=== PATIENT | female | born 1955 | race Caucasian/White ===

== ENCOUNTER 2019-08-03 10:00 | Outpatient (RCR) | payer BC, SELFPAY ==
[2019-06-26 10:39] VITALS: BP_SYST 120
--- NOTE | 2019-06-26 11:52 | OTOPEVAL ---
OCCUPATIONAL THERAPY INITIAL EVALUATION REPORT Thank you for referring this patient to [facility]. Skilled OT inidcated 2x/week for 6 weeks. Please review, sign, date and return this plan of care KATT. I agree with and certify that the following plan of care is medically necessary. Referring Physician Date Attending Provider: Marcela Pugh, *OT Outpatient Evaluation Start: 06/26/19 10:39 Freq: Status: Active Protocol: Document 06/26/19 10:39 YULIANA (Rec: 06/26/19 11:52 YULIANA [id number]) Therapy Assessment Status Assessment Status Assessment Status Evaluation Outpatient Past Medical History Neurological History Hx Multiple Sclerosis Yes Hx Other Neurological Disorders Yes: neurogenic bowel Genitourinary History Hx Kidney Stones Yes Evaluation Information Problem Diagnosis MS, (R) UE contracture Additional Evaluation Detail Patient had botox injections 06/14/19 to the (R) upper back and neck, biceps, and forearm. Subjective Information Patient reports her goal for Query Text:As Reported By Patient/ therapy is for pain reduction Family and increased flexibility in the (R) UE. Pain Assessment Timing of Pain Assessment Timing of Pain Assessment Assessment Pain Scale Pain Scale Used Numeric (1 - 10) Self Report Pain Assessment Right Arm(s) Reported Pain Level 3 Pain Description Aching,Tightness Pain Frequency Intermittent Current Pain Intensity 3 Lowest Pain Intensity 0 Greatest Pain Intensity 8 Pain Score Pain Score 3: Self Report Cervical and Lumbar ROM Cervical ROM Cervical Rotation Right (0-90) 40 Query Text:Active in Degrees Cervical Rotation Left (0-90) 50 Query Text:Active in Degrees Upper Extremity Range of Motion Scapular/ Shoulder Range of Motion Right Shoulder Flexion - Active 0 Shoulder Flexion - Passive 140 Shoulder Extension - Active 20 Shoulder Extension - Passive 40 Shoulder Abduction - Active 50 Shoulder Abduction - Passive 120 Elbow/Forearm Range of Motion Right Elbow Flexion - Active 138 Elbow Flexion - Passive 140 Elbow Extension - Active -100 Elbow Extension - Passive -30 Forearm Supination - Active 0 Forearm Supination - Passive 90 Forearm Pronation - Active 70 Forearm Pronation - Passive 90 Wrist Range of Motion Right Wrist Flexion - Active 10 Wrist Flexion - Passive 65 Wrist Extension - Active 45 Wrist Extension - Passive 75 U
[2019-08-03 11:24] VITALS: BP_SYST 120
--- NOTE | 2019-08-03 11:35 | OTOPEVAL ---
OCCUPATIONAL THERAPY DISCHARGE REPORT 08/03/2019 Thank you for referring this patient to [facility]. As described below, no further skilled OT is indicated at this time. She is independent with her home program and splinting. Please review, sign, date and return this discharge report KATT. I agree with and certify that the following plan of care is medically necessary. Referring Physician Date Attending Provider: Marcela Pugh, MD *OT Outpatient Re-Evaluation Evaluation Information Diagnosis MS Additional Evaluation Detail Lola has been participating in outpatient OT for RUE weakness and pain. OT has been focusing on manual therapy, splinting, and e-stim to help reduce contracture and tone and help promote improved flexibility. She has been wearing an elbow extension orthotic to reduce flexion tone. Subjective Information Lola reports not feeling Query Text:As Reported By Patient/ very much change with AROM SOC Family . She does note that therapy has helped relax her arm and has helped with the flexibility. Pain Assessment Timing of Pain Assessment Timing of Pain Assessment Re-assessment Pain Scale Pain Scale Used Numeric (1 - 10) Self Report Pain Assessment Right Arm(s) Reported Pain Level 0 Radicular Pain Location (R) neck and arm Current Pain Intensity 0 Lowest Pain Intensity 0 Greatest Pain Intensity 4 Pain Score Pain Score 0: Self Report Additional Pain Score Comments Pain with attempts to raise arm. Pt is over using upper traps 2/2 distal weakness. Cervical and Lumbar ROM Cervical ROM Cervical Rotation Right (0-90) 50 Query Text:Active in Degrees Cervical Rotation Left (0-90) 50 Query Text:Active in Degrees Cervical ROM Comments Rotation to the right improved from 40* to 50*. Upper Extremity Range of Motion Scapular/ Shoulder Range of Motion Right Shoulder Flexion - Active 0 Shoulder Flexion - Passive 140 Shoulder Extension - Active 20 Shoulder Extension - Passive 40 Shoulder Abduction - Active 50 Shoulder Abduction - Passive 120 Elbow/Forearm Range of Motion Right Elbow Flexion - Active 138 Elbow Flexion - Passive 140 Elbow Extension - Active -80 Elbow Extension - Passive -30 Forearm Supination - Active 0 Fo
== END 2019-08-04 14:24 | disposition home or self-care (01) ==
LOC: ANHOT 10:00
PROVIDERS: PCP Family Medicine Adolescent Medicine; Visit Provider Physical Medicine & Rehabilitation
DX: G35 Multiple sclerosis (principal); G24.3 Spasmodic torticollis; N31.9 Neuromuscular dysfunction of bladder, unspecified; K59.2 Neurogenic bowel, not elsewhere classified; M79.2 Neuralgia and neuritis, unspecified; Z99.3 Dependence on wheelchair; Z68.29 Body mass index [BMI] 29.0-29.9, adult
CPT/HCPCS: 97014; 97110; 97140; 97165; 97760; G0283

== ENCOUNTER → 2019-09-05 14:56 | Outpatient (CLI) | payer BC, SELFPAY ==
--- NOTE | ~2019-09-05 | MM_ITS ---
EXAMINATION: MM screening марина BI w raphael HISTORY: Screening mammogram TECHNIQUE: Craniocaudal and mediolateral oblique 3-D tomosynthesis images were obtained and synthetic 2-D images were generated. CAD analysis was submitted and interpreted. COMPARISON: 09/08/2018 diagnostic left digital mammogram and limited left breast ultrasound To bilateral digital screening mammogram diagnostic right digital mammogram and limited right breast ultrasound 07/23/2017, 07/21/2016, 07/19/2015 bilateral digital screening mammogram examinations BREAST PARENCHYMAL COMPOSITION: There are scattered areas of fibroglandular density. FINDINGS: There are scattered bilateral benign calcifications. There is no evidence of suspicious mas s, calcification, or architectural distortion to suggest malignancy in either breast. There has been no suspicious interval change. IMPRESSION: 1. No mammographic evidence of malignancy. 2. Recommend routine screening mammography in one year. BI-RADS Category 2: Benign finding(s). Reviewed, dictated and finalized at location A. E THINNER
== END ==
PROVIDERS: PCP Family Medicine Adolescent Medicine; Visit Provider Nurse Practitioner
DX: Z12.31 Encounter for screening mammogram for malignant neoplasm of breast (principal)
CPT/HCPCS: 77063; 77067

== ENCOUNTER 2020-02-05 11:00 | Outpatient (RCR) | payer BC, SELFPAY ==
[2020-01-18 13:53] VITALS: BP_SYST 105
--- NOTE | 2020-01-18 15:09 | PTOPEVAL ---
Thank you for referring Lola Taylor to [facility]. Please review, sign, date and return this plan of care KATT. Pt referred to therapy to address impairments related to multiple sclerosis. She presents with right UE impairments with range and strength. She would benefit from additional skilled PT 2-3x/wk x 4-6 wk. I agree with and certify that the following plan of care is medically necessary. Referring Physician Date Attending Provider: Marcela Pugh, *PT Outpatient Evaluation Start: 01/18/20 13:51 Freq: Status: Active Protocol: Document 01/18/20 13:53 BENJAMIN (Rec: 01/18/20 14:35 BENJAMIN [id number]) Therapy Assessment Status Assessment Status Assessment Status Evaluation Outpatient Past Medical History Past Medical History Source of Past Medical History Patient Neurological History Hx Multiple Sclerosis Yes Hx Other Neurological Disorders Yes: neurogenic bowel, neuropathic pain Genitourinary History Hx Kidney Stones Yes Psychosocial History Hx Depression Yes Evaluation Information Problem Diagnosis MS Onset 1989 Additional Evaluation Detail [facility]: new permobile 06/22. Transport van to allow community mobility Subjective Information Pt received botox in her range Query Text:As Reported By Patient/ UE and neck region ~ 1year Family ago due to increased spasm. She was made a splint to assist with maintaining her left extension. She recently received injection into the left arm again. She is hoping to address her right arm range. She is not performing a HEP. She wears the splint every other day for a few hours. Prior Level of Function Home Setting Home Type House Support Available Local Family Support,Physical Assist Available Mobility Assistive Devices (Used Last 3 Wheelchair, Motorized Months) Bathroom Environment Shower, Curtain Toileting Equipment Grab Bars Comments Additional Prior Level of Function Pt's performs all the Comments bed mobility, transfers, and ADL's/ IADL's. She is indep with mobility from her [employer]er. Pain Assessment Timing of Pain Assessment Timing of Pain Assessment Assessment Pain Scale Pain Scale Used
--- NOTE | 2020-02-05 14:10 | PCPTNOTE ---
Admitting Provider: Attending Provider: Marcela Pugh, Patient:Lola Taylor Date of :1955 Discharge Note Patient has received 6 therapy visits from 01/17-02/05/20 to address education on pressure relief, seated position and joint range of UE's. She reported improved buttock pain after cushion properly inflated. Inconsistent with performing proper pressure relief technique or frequency of pressure relief. Her caregiver is independent with performing a stretching HEP. The goals have been partially met. Thank you for referring this patient to [facility]. Please review, sign, date and return this discharge summary KATT. I have been updated about the patient's current status and I agree with discharge from the above service at this time. Referring Physician Date
== END 2020-02-05 15:04 | disposition home or self-care (01) ==
LOC: ANHPT 11:00
PROVIDERS: PCP Family Medicine Adolescent Medicine; Visit Provider Physical Medicine & Rehabilitation
DX: G35 Multiple sclerosis (principal); G24.3 Spasmodic torticollis; N31.9 Neuromuscular dysfunction of bladder, unspecified; K59.2 Neurogenic bowel, not elsewhere classified; M79.2 Neuralgia and neuritis, unspecified; F32.9 Major depressive disorder, single episode, unspecified; Z99.3 Dependence on wheelchair; Z86.39 Personal history of other endocrine, nutritional and metabolic disease; Z86.79 Personal history of other diseases of the circulatory system
CPT/HCPCS: 97110; 97140; 97162; 97530

== ENCOUNTER 2020-06-25 09:17 | Outpatient (CLI) | payer BC, SELFPAY ==
--- NOTE | ~2020-06-25 | XR_ITS ---
EXAMINATION: XR abdomen/kub 1V INDICATION: Nephrolithiasis TECHNIQUE: Supine views of the abdomen were obtained on 2 radiographs. COMPARISON: 06/06/[address], 06/15/2019 FINDINGS: Bowel contents project over the kidneys limiting sensitivity for renal stones. No definite urolithiasis is identified. There are numerous phleboliths of the pelvis. Punctate densities in the r ight mid abdomen likely within the bowel. A large volume of colonic stool is present. There is modera te osteoarthritis of the hips. Lucent centered soft tissue calcifications projecting in the left hip region likely reflect prior trauma or injection sites. There is severe lower lumbar spondylosis. IMPRESSION: 1. No urolithiasis identified. Reviewed, dictated and finalized at location A. 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
== END 2020-06-25 09:18 | disposition home or self-care (01) ==
LOC: ANHIMG 09:22
PROVIDERS: PCP Family Medicine Adolescent Medicine; Visit Provider Urology
DX: Z87.442 Personal history of urinary calculi (principal)
CPT/HCPCS: 74018

== ENCOUNTER → 2020-11-05 10:55 | Outpatient (CLI) | payer BC, SELFPAY ==
--- NOTE | ~2020-11-05 | MM_ITS ---
EXAMINATION: MM screening марина BI w raphael HISTORY: Screening TECHNIQUE: Craniocaudal and mediolateral oblique 3-D tomosynthesis images were obtained and synthetic 2-D images were generated. CAD analysis was submitted and interpreted. COMPARISON: Comparison to multiple prior studies sequentially, with oldest reviewed study dated 07/21. BREAST PARENCHYMAL COMPOSITION: There are scattered areas of fibroglandular density. FINDINGS: There is no evidence of suspicious mass, calcification, or architectural distortion to sugg est malignancy in either breast. There has been no suspicious interval change. IMPRESSION: 1. No mammographic evidence of malignancy. 2. Recommend routine screening mammography in one year. BI-RADS Category 1: Negative Reviewed, dictated and finalized at location A.
== END ==
PROVIDERS: PCP Family Medicine Adolescent Medicine; Visit Provider Nurse Practitioner
DX: Z12.31 Encounter for screening mammogram for malignant neoplasm of breast (principal)
CPT/HCPCS: 77063; 77067

== ENCOUNTER 2021-02-20 09:00 | Outpatient (RCR) | payer BC, SELFPAY ==
[2021-01-21 09:37] VITALS: BP_SYST 110
--- NOTE | 2021-01-21 10:57 | OTOPEVAL ---
OCCUPATIONAL THERAPY INITIAL EVALUATION: 01/21/2021 Thank you for referring Lola Taylor to [facility].? The patient is scheduled to be seen for therapy? 1x/week for 4 weeks. Please review, sign, date and return this plan of care KATT. I agree with and certify that the following plan of care is medically necessary. Referring Physician Date Attending Provider: Marcela Pugh, *OT Outpatient Evaluation Start: 01/21/21 09:04 Freq: Status: Active Protocol: Document 01/21/21 09:37 KJL (Rec: 01/21/21 10:57 KJL [email or web address]) Therapy Assessment Status Assessment Status Assessment Status Evaluation Outpatient Past Medical History Neurological History Hx Multiple Sclerosis Yes Hx Other Neurological Disorders Yes: neurogenic bowel, neuropathic pain Genitourinary History Hx Kidney Stones Yes Psychosocial History Hx Depression Yes Evaluation Information Problem Diagnosis MS Onset 1989 Additional Evaluation Detail Patient diagnosed in 1989 with multiple sclerosis. Patient is w/c bound for the past 12 years. Patient reports has been to Occupational Therapy here about a year ago for addressing R UE stretching, strengthening, splinting. Patient receives botox injections in R UE arm every three months for the past three years. Subjective Information Patient reports R UE has Query Text:As Reported By Patient/ progressively become more Family painful from shoulder to elbow over the past month,. Patient reports last botox injections on 01/10/2021, patient reports this has assisted the pain. Patient reports since coming to therapy a year ago does not complete stretches, still wearing elbow splint 2-3x/week for as tolerated usually about 4 hours. Patient tries to remember to wear it when sleeping. Patient reports dominant L UE is progressively becoming weaker. Patients goal with therapy is to be educated on stretches, ROM for
[2021-02-20 08:57] VITALS: BP_SYST 135
--- NOTE | 2021-02-20 09:49 | OTOPEVAL ---
OCCUPATIONAL THERAPY RE-EVALUATION/DISCHARGE SUMMARY: 02/20/2021 Thank you for referring Lola Taylor to [facility].? As noted below, no further skilled OT is indicated at this time. Plan to discharge today with patient and patient independent with HEP materials Please review, sign, date and return this plan of care KATT. I agree with and certify that the following plan of care is medically necessary. Referring Physician Date Attending Provider: Marcela Pugh, *OT Outpatient Re-evaluation/Discharge Summary Start: 01/21/21 09:04 Freq: Status: Active Protocol: Document 02/20/21 08:57 KJL (Rec: 02/20/21 09:49 KJL [email or web address]) Therapy Assessment Status Assessment Status Assessment Status Re-evaluation/Discharge Summary Evaluation Information Problem Diagnosis MS Onset 1989 Additional Evaluation Detail Patient diagnosed in 1989 with multiple sclerosis. Patient is w/c bound for the past 12 years. Patient reports has been to Occupational Therapy here about a year ago for addressing R UE stretching, strengthening, splinting. Patient receives botox injections in R UE arm every three months for the past three years. Subjective Information Patient has attended Query Text:As Reported By Patient/ Outpatient OT for the past 4 Family weeks and is independent with splint wearing including doffing/donning with spouse assistance. Patient is independent with HEP materials and reports R UE has decreased pain, more flexibility since initial evaluation on 01/21/2021 Pain Assessment Timing of Pain Assessment Timing of Pain Assessment Assessment Pain Scale Pain Scale Used Numeric (1 - 10) Self Report Pain Assessment Right Arm(s) Reported Pain Level 0 Lowest Pain Intensity 0 Greatest Pain Intensity 8 Pain Score Pain Score 0: Self Report Interventions Used Interventions Used By Clinicians Rest Upper Extremity Range of Motion General Upper Extremity Range of Motion Reason Not Measured WNL/Left Scapular/ Shoulder Range of Motion Right Reason Not Measured WNL/Left Shoulder Flexion - Active 0 Shoulder Flexion - Passive 140 Shoulder Extension - Active 30
== END 2021-02-20 16:25 | disposition home or self-care (01) ==
LOC: ANHOT 09:00
PROVIDERS: PCP Family Medicine Adolescent Medicine; Visit Provider Physical Medicine & Rehabilitation
DX: G35 Multiple sclerosis (principal); Z68.28 Body mass index [BMI] 28.0-28.9, adult
CPT/HCPCS: 97110; 97140; 97165; 97168; 97763

== ENCOUNTER 2021-06-10 13:29 | Outpatient (CLI) | payer MEDICARE, BC, SELFPAY ==
--- NOTE | ~2021-06-10 | XR_ITS ---
EXAMINATION: XR abdomen/kub 1V EXAM DATE: 06/10/2021 14:01 INDICATION: Bilateral kidney stones. TECHNIQUE: Frontal projection of the upper abdomen, frontal projection lower abdomen/pelvis for inter pretation. Comparison is made to prior examination from 06/25/2020. FINDINGS: Moderate to large amount of colonic stool and gas, similar appearance on previous examinat ion. This is obscuring renal contours, can't confidently evaluate for kidney stones. Extensive pelvic calcifications appear unchanged consistent with phleboliths. Moderate bilateral hip primary osteoart hritis. There is no organomegaly. IMPRESSION: Moderate to large amount of colonic stool and gas obscuring renal contours. Reviewed, dictated and finalized at location G. [employer]
== END 2021-06-10 13:30 | disposition home or self-care (01) ==
PROVIDERS: PCP Family Medicine Adolescent Medicine; Visit Provider Urology
DX: N20.0 Calculus of kidney (principal)
CPT/HCPCS: 74018

== ENCOUNTER → 2021-11-14 12:38 | Outpatient (CLI) | payer MEDICARE, BC, SELFPAY ==
--- NOTE | ~2021-11-14 | MM_ITS ---
EXAMINATION: MM screening марина BI w raphael HISTORY: Screening TECHNIQUE: Craniocaudal and mediolateral oblique 3-D tomosynthesis images were obtained and synthetic 2-D images were generated. CAD analysis was submitted and interpreted. COMPARISON: Comparison to multiple prior studies sequentially, with oldest reviewed study dated 07/23. BREAST PARENCHYMAL COMPOSITION: Breast composed of scattered areas of fibroglandular density FINDINGS: Stable lymph node in the right axilla. There is no evidence of suspicious mass, calcificati on, or architectural distortion to suggest malignancy in either breast. There has been no suspicious interval change. IMPRESSION: 1. No mammographic evidence of malignancy. 2. Recommend routine screening mammography in one year. BI-RADS Category 2: Benign finding(s). Reviewed, dictated and finalized at location A.
== END ==
PROVIDERS: PCP Nurse Practitioner; Visit Provider Nurse Practitioner
DX: Z12.31 Encounter for screening mammogram for malignant neoplasm of breast (principal)
CPT/HCPCS: 77063; 77067

== ENCOUNTER 2021-12-11 08:56 | Inpatient (IN) | payer MEDICARE, BC, SELFPAY ==
[2021-12-11] VITALS (34 sets, daily range): BP systolic 98–152; BP diastolic 47–89; PULSE 84–123; RESP 14–30; TEMP 36.8–38.7; O2SAT 90–97; BMI 27.3
--- NOTE | ~2021-12-11 | XR_ITS ---
XR chest 1V portable 12/11/2021 10:27 Indication: Shortness of breath Procedure: AP portable chest Comparison: 02/14/2017 Findings: Heart size normal. Shallow inspiration. No focal air space disease, pulmonary edema, pleura l effusion or suspected pneumothorax. No acute osseous abnormality. Impression: 1: No acute cardiopulmonary disease. Reviewed, dictated and finalized at location B. Impression: 1: No acute cardiopulmonary disease.
--- NOTE | ~2021-12-11 | US_ITS ---
EXAMINATION: US venous doppler [facility] DATE: 12/12/2021 08:52 INDICATION: Lower limb edema. TECHNIQUE: Grayscale ultrasound images without and with compression and Doppler ultrasound images of the bilateral lower extremity veins were obtained. COMPARISON: Ultrasound 02/15/2017 FINDINGS: The visualized portions of right common femoral vein, profunda (deep) femoral vein, femoral vein, pop liteal vein, peroneal veins, posterior tibial veins, and greater saphenous vein outflow are patent. The visualized portions of left common femoral vein, profunda femoral vein, femoral vein, popliteal v ein, peroneal veins, posterior tibial veins, and greater saphenous vein outflow are patent. IMPRESSION: 1. No deep venous thrombosis. Reviewed, dictated and finalized at location A.
--- NOTE | 2021-12-11 09:14 | ECG_ITS ---
Measurements Intervals [place] Rate: 111 P: 45 [place]: 142 QRS: 40 QRSD: 92 T: 42 QT: 324 QTc: 440 Interpretive Statements SINUS TACHYCARDIA POSSIBLE LEFT ATRIAL ENLARGEMENT [-0.1mV P WAVE IN V1/V2] MINOR NONSPECIFIC ST CHANGE NO PREVIOUS ECG AVAILABLE FOR COMPARISON Electronically Signed On 12-11-2021 20:33:46 CDT by Karie Rhodes M.D.
--- NOTE | 2021-12-11 09:39 | ED.FEVER ---
HPI - Fever General Chief Complaint: Fever Stated Complaint: COVID+ on 12/09 Time Seen by Provider: 12/11/21 09:24 Source: patient Mode of arrival: ambulatory Limitations: no limitations History of Present Illness HPI Narrative: 66 year old female with history of MS presents today with complaints of sob and cough. Patient tested positive for covid on wednesday. Patient originally vaccinated last year against COVID has not gotten a booster. States her symptoms started Wednesday with a sore throat. Patient since then has had increase in cough and sob. Fever this am 101 but did not treat her symptoms. Patient lives at home with her . She is wheel chair bound. Her recently had covid and so did her daughter. Related Data Home Medications Medication Instructions Recorded Confirmed cholecalciferol (vitamin D3) 25 25 mcg PO DAILY 09/24/21 12/11/21 mcg (1,000 unit) capsule dalfampridine 10 mg 10 mg PO Q12H 09/24/21 12/11/21 tablet,extended release,12 hr gabapentin 100 mg capsule 200 mg PO QHS 09/24/21 12/11/21 ketoconazole 2 % shampoo 1 applic topical 3XW 09/24/21 multivitamin (Multiple Vitamins 1 tablet PO DAILY 09/24/21 12/11/21 tablet) oxybutynin chloride 10 mg 20 mg PO DAILY 09/24/21 12/11/21 tablet,extended release 24 hr pravastatin 20 mg tablet 20 mg PO DAILY 09/24/21 12/11/21 tizanidine 4 mg capsule 8 mg PO QHS PRN Muscle Spasm 09/24/21 12/11/21 venlafaxine 150 mg 150 mg PO DAILY 09/24/21 12/11/21 capsule,extended release 24 hr Allergies Allergy/AdvReac Type Severity Reaction Status Date / Time codeine Allergy Mild Nausea and Verified 09/24/21 08:20 Vomiting Sulfa (Sulfonamide Allergy Mild Nausea and Verified 09/24/21 08:20 Antibiotics) Vomiting Review of Systems Review of Systems: CONSTITUTIONAL: Denies fever, chills, or sweats. EYES: Denies visual changes, redness, or discharge. ENT: Sore throat. Denies rhinorrhea, congestion, or otalgia. CARDIOVASCULAR: Denies chest pain, palpitations, or edema. RESPIRATORY: Cough and dyspnea. GASTROINTESTINAL: Denies abdominal pain, nausea, vomiting, or diarrhea. GENITOURINARY: Denies dysuria or hematuria. SKIN: Denies rash or itching. MUSCULOSKELETAL: Denies back pain, joint pain, or myalgia. NEUROLOGIC: Denies headache, numbness, dizziness, or weakness. PSYCHIATRIC: Denies anxiety or depression. [facility] Past Medical History Medical History Depression Hypercholesterolemia Hypertension Kidney stones Melanoma Multiple sclerosis Neurogenic bladder Surgical History Surgical History History of cystoscopy History of lithotripsy Family History Family History Grandparent Breast cancer Mother Heart disease Hypertension Father Heart disease Hypertension Social History Social History (Updated 12/11/21 @ 15:12 by Katya Solano PA-C) Social History: Surrogate decision maker: Breana Taylor, daughter. Code status: Full code. Smoking status: Never smoker Second hand tobacco smoke exposure: No Alcohol intake: never Substance use: never Substance use type: does not use Living arrangements: with family Occupation/Education: unemployed Spiritual care concerns: No Agree to blood products: Yes Exam Narrative: GENERAL: Well-appearing, well-nourished, and in no acute distress. HEAD: Normocephalic, atraumatic. EYES: PERRLA and EOMI. ENT: Nares clear, no rhinorrhea or epistaxis. Mucous membranes moist. Oropharynx without tonsillar hypertrophy exudate or other lesions. NECK: Supple. CHEST: Clear to auscultation. No respiratory distress. No wheezes rales or rhonchi HEART: Tachycardia but with regular rhythm. No murmur heard. Normal peripheral pulses. ABDOMEN: Soft, nontender, nondistended, normal active bowel sounds. EXTREMITIES: Normal ran
[2021-12-11 10:18] LABS: Basophils Percent Auto 0.4 % (0.2-1.2); Eosinophils Absolute Auto 0.2 K/mm3 (0-0.3); Eosinophils Percent Auto 2.6 % (0-4.4); Hematocrit 45.5 % (37.0-47.0); Hemoglobin 14.6 g/dL (12.0-15.0); Immature Granulocyte Absolute 0.03 K/mm3 (0.00-0.031); Immature Granulocyte Percent A 0.4 % (0-0.5); Lymphocytes Absolute Auto 0.52 K/mm3 (0.9-3.2); Lymphocytes Percent Auto 7.5 % (18.3-44.2); Mean Corpuscular HGB Conc 32.1 g/dl (32-36); Mean Corpuscular Hemoglobin 30.3 pg (26-34); Mean Corpuscular Volume 94.4 fl (80-100); Mean Platelet Volume 10.1 fl (7.4-10.4); Monocytes Absolute Auto 0.6 K/mm3 (0.1-0.6); Monocytes Percent Auto 8.7 % (2.6-8.5); Neutrophils Absolute Auto 5.6 K/mm3 (1.3-6.7); Neutrophils Percent Auto 80.4 % (45.5-73.1); Platelet Count Result 189 k/mm3 (150-375); Red Blood Count 4.82 M/mm3 (4.2-5.4); Red Cell Distribution Width 12.4 % (11.5-14.5); White Blood Count 6.9 K/mm3 (4.5-10.0)
[2021-12-11 10:24] LABS: INR 1.1; Prothrombin Time 13.4 Seconds (11.1-14.7)
[2021-12-11 10:25] LABS: Partial Thromboplastin Time 30.8 SECONDS (22.3-36.8)
[2021-12-11 10:26] LABS: Alanine Aminotransferase 52 U/L (6-35); Albumin Level 4.6 g/dL (3.5-5.1); Alkaline Phosphatase 83 U/L (38-126); Anion Gap 12 mmol/L (8-16); Aspartate Amino Transferase 59 U/L (14-36); Bilirubin,Total 0.7 mg/dL (0.2-1.3); Blood Urea Nitrogen 20 mg/dL (7-17); Calcium 8.4 mg/dL (8.4-10.2); Carbon Dioxide 25 mmol/L (22-30); Chloride 99 mmol/L (98-107); Estimated Glomerular Filt Rate > 60; Glucose 113 mg/dL (65-110); Potassium 4.3 mmol/L (3.4-5.0); Sodium 136 mmol/L (137-145)
[2021-12-11 10:27] LABS: Lactic Acid Reflex 1.6 mmol/L (0.7-2.0)
[2021-12-11 10:44] LABS: Influenza A QL RT-PCR Negative (Negative); Influenza B QL RT-PCR Negative (Negative); SARS-CoV-2 RNA PCR Positive
[2021-12-11] MEDS: SODIUM CHLORIDE 0.9% IV 1,000 ML 999 ML IV CONT (10:48)
[2021-12-11] MEDS: ONDANSETRON INJ 4 MG/2 ML VIAL IV PUSH (10:49)
[2021-12-11 11:02] LABS: Appearance Urine Cloudy (Clear); Bilirubin Urine 1+ (Negative); Blood Urine 2+ (Negative); Color Urine Yellow (Yellow); Glucose Urine UA Negative (Negative); Ketones Urine 4+ mg/dL (Negative); Leukocyte Esterase Ur 2+ LEU/UL (Negative); Nitrate Urine Negative (Negative); Protein Urine 1+ mg/dL (Negative); Specific Grav Ur >= 1.030 (1.001-1.035); Urobilinogen Urine 0.2 mg/dL (<2.0); pH Urine 5.5 (5.0-9.0)
[2021-12-11 11:12] LABS: Bacteria Urine Trace /hpf; Mucus Urine Rare /lpf; Renal Epithelial Cells Urine Rare /hpf (None Seen); Squamous Epithelial Cell Urine Many /hpf (Few); WBC Clumps Urine Present /HPF; WBC Urine >75 /hpf
[2021-12-11 11:16] LABS: Add Urine Microscopic? YES
[2021-12-11 11:30] LABS: Troponin I < 0.012 ng/mL (0.000-0.034)
--- NOTE | 2021-12-11 13:11 | PC.NURSE ---
Addendum entered by Nuria Baumann RN 12/11/21 13:11: pt. husbands cell phone. melany Original Note: [phone]
--- NOTE | 2021-12-11 13:40 | PHAR ---
PT'S HOME MED PAXLOVID KIT VERIFIED BY PHARMACY
--- NOTE | 2021-12-11 13:44 | PC.NURSE ---
This patient, Lola Taylor, was admitted to 2 Medical Room 259-01. Patient/family oriented to hospital policies and general routines including ID bracelet, bed and alarms, visiting hours, pain management, procedures, bathroom and other care routines, personal items, smoking policy, room service/diet, and visiting hours. Information on how to activate the Rapid Response Team has been discussed. Patient/Family are encouraged to report perceived risks to care and to ask questions if they do not understand what they are told or what they should do.
--- NOTE | 2021-12-11 14:00 | PM.IMHP ---
H&P: HPI History of Present Illness Date/Time: 12/11/21 14:00 Chief Complaint: Fever, cough, shortness of breath. Narrative: This is a very pleasant 66-year-old female with multiple sclerosis, hypertension, hyperlipidemia, and history of kidney stones who presented to the emergency department from home for evaluation of fever, cough, and shortness of breath. She and her family members were at [email or web address] last week and unfortunately several of them have come down with URI symptoms. The patient started feeling bad on Wednesday with a sore throat and it has been severe enough that she has not been eating or drinking much. She has also had a cough productive of clear sputum, mild shortness of breath, and temperature to 101 ? F. She tested positive for COVID 19 on a home test 2 days ago and was started on Paxlovid however she is not feeling any better. Her temperature was 101.7? F on arrival to the ER today. She did indeed test positive for SARS-CoV-2 by PCR. Chest x-ray showed no acute cardiopulmonary disease however she is requiring 4 L nasal cannula to maintain her SpO2 in the mid to upper 90s. She denies sinus congestion, headache, chest pain, pleuritic pain, palpitations, vomiting, and diarrhea. Review of Systems Review of Systems: Twelve systems were reviewed. She is bed and wheelchair-bound, her is her primary menagerie caretaker. She has some mild breakdown on her coccyx but no significant pressure wounds. She has neurogenic bladder and does straight catheterization about 3 times a day. Denies diarrhea. No history of venous thromboembolism. Except as documented, all other systems were reviewed and are negative. [facility], [facility] Past Medical History Medical History Depression Hypercholesterolemia Hypertension Kidney stones Melanoma Multiple sclerosis Neurogenic bladder Surgical History Surgical History History of cystoscopy History of lithotripsy Family History Family History Grandparent Breast cancer Mother Heart disease Hypertension Father Heart disease Hypertension Social History Social History Social History: Surrogate decision maker: Breana Taylor, daughter. Code status: Full code. Smoking status: Never smoker Second hand tobacco smoke exposure: No Alcohol intake: never Substance use: never Substance use type: does not use Living arrangements: with family Occupation/Education: unemployed Spiritual care concerns: No Agree to blood products: Yes Meds Home Medications and Allergies Home Medications Medication Instructions Recorded Confirmed Type lisinopril 20 mg tablet 20 mg PO DAILY #90 tabs 09/17/21 12/11/21 Rx cholecalciferol (vitamin D3) 25 25 mcg PO DAILY 09/24/21 12/11/21 History mcg (1,000 unit) capsule dalfampridine 10 mg 10 mg PO Q12H 09/24/21 12/11/21 History tablet,extended release,12 hr gabapentin 100 mg capsule 200 mg PO QHS 09/24/21 12/11/21 History ketoconazole 2 % shampoo 1 applic topical 3XW 09/24/21 12/11/21 History multivitamin (Multiple Vitamins 1 tablet PO DAILY 09/24/21 12/11/21 History tablet) oxybutynin chloride 10 mg 20 mg PO DAILY 09/24/21 12/11/21 History tablet,extended release 24 hr pravastatin 20 mg tablet 20 mg PO DAILY 09/24/21 12/11/21 History tizanidine 4 mg capsule 8 mg PO QHS PRN Muscle Spasm 09/24/21 12/11/21 History venlafaxine 150 mg 150 mg PO DAILY 09/24/21 12/11/21 History capsule,extended release 24 hr nirmatrelvir 300 mg (150 mg x See Rx Instructions PO .COMPLEX 12/09/21 12/11/21 Rx 2)-ritonavir 100 mg tablet (EUA) #30 tabs (Paxlovid 300 mg () Allergies Allergy/AdvReac Type Severity Reaction Status Date / Time codeine Allergy Mild Nausea and Verified 09/24/21 08:20 Vomiting Sulfa (Sul
[2021-12-11] MEDS: REMDESIVIR 200 MG/NS 250 ML 200 MG/250 ML BAG 250 MG IVPB (16:09)
[2021-12-11] MEDS: ALBUTEROL SULFATE NEB 2.5 MG/3 ML INH 5 MG INHALATION (20:30)
[2021-12-12] VITALS (19 sets, daily range): BP systolic 102–137; BP diastolic 54–66; PULSE 84–122; RESP 16–20; TEMP 36.7–37.7; O2SAT 95–100
[2021-12-12] MEDS: DEXTROSE 5%/LACTATED RINGERS 1,000 ML 75 ML IV CONT ×2 (00:17→15:50)
[2021-12-12] MEDS: ENOXAPARIN 80 MG/0.8 ML SYRINGE 70 MG SUB-Q (00:19)
[2021-12-12] MEDS: GABAPENTIN 100 MG CAPSULE 200 MG PO ×2 (00:22→21:00)
[2021-12-12] MEDS: BENZOCAINE/MENTHOL (*BKC) 18 EA LOZENGE 1 LOZENGE PO (00:24)
[2021-12-12] MEDS: ALBUTEROL SULFATE NEB 2.5 MG/3 ML INH 5 MG INHALATION ×2 (02:15→19:53)
[2021-12-12 06:15] LABS: Hematocrit 39.4 % (37.0-47.0); Hemoglobin 12.8 g/dL (12.0-15.0); Mean Corpuscular HGB Conc 32.5 g/dl (32-36); Mean Corpuscular Hemoglobin 30.2 pg (26-34); Mean Corpuscular Volume 92.9 fl (80-100); Platelet Count Result 198 k/mm3 (150-375); Red Blood Count 4.24 M/mm3 (4.2-5.4); Red Cell Distribution Width 12.4 % (11.5-14.5); White Blood Count 10.3 K/mm3 (4.5-10.0)
[2021-12-12 06:36] LABS: Alanine Aminotransferase 42 U/L (6-35); Albumin Level 3.7 g/dL (3.5-5.1); Alkaline Phosphatase 69 U/L (38-126); Anion Gap 7 mmol/L (8-16); Aspartate Amino Transferase 47 U/L (14-36); Bilirubin,Total 0.2 mg/dL (0.2-1.3); Blood Urea Nitrogen 13 mg/dL (7-17); Carbon Dioxide 25 mmol/L (22-30); Chloride 104 mmol/L (98-107); Estimated CRCL calculation 85 ml/min; Estimated Glomerular Filt Rate > 60; Glucose 193 mg/dL (65-110); Lactate Dehydrogenase 436 U/L (313-618); Magnesium 1.9 mg/dL (1.6-2.3); Potassium 3.8 mmol/L (3.4-5.0); Sodium 136 mmol/L (137-145)
[2021-12-12 06:37] LABS: INR 1.2; Prothrombin Time 15.2 Seconds (11.1-14.7)
[2021-12-12 06:50] LABS: CRP 21.1 mg/dL (<1.0)
[2021-12-12] MEDS: ALBUTEROL SULFATE NEB 2.5 MG/0.5 ML INH 5 MG ×2 (07:19→15:25)
[2021-12-12 08:28] LABS: Band Neutrophils Percent 45 % (0-6); Lymphocytes Absolute Manual 0.51 K/mm3 (1.1-4.5); Metamyelocytes Percent 13 %; Monocytes Absolute Manual 0.51 K/mm3 (0.1-0.90); Monocytes Percent Manual 5 % (3-9); Myelocytes Percent 1 %; Neutrophils Absolute Manual 7.72 K/mm3 (1.7-7.2); Neutrophils Percent Manual 30 % (46-73); Plasma Cells 1; Platelet Estimate Adequate (Adequate); Total Cells Counted 100
[2021-12-12] MEDS: TIZANIDINE HCL 4 MG TABLET 8 MG PO (08:48)
[2021-12-12] MEDS: MULTIVITAMINS THERAPEUTIC TAB (*BKC) 1 TABLET PO (08:51)
[2021-12-12] MEDS: CHOLECALCIFEROL 1,000 UNITS TABLET 1000 UNITS PO (08:51)
[2021-12-12] MEDS: VENLAFAXINE HCL XR 75 MG CAP.ER.24H 150 MG PO (08:51)
[2021-12-12] MEDS: REMDESIVIR 100 MG/NS 250 ML 100 MG/250 ML BAG 250 MG IVPB (09:34)
--- NOTE | 2021-12-12 12:27 | PHAR ---
DRUG NAME: DALFAMPRIDINE INGREDIENTS: DALFAMPRIDINE -- 10 MG RELATED DOCUMENTS: DRUGDEX EVALUATIONS - DALFAMPRIDINE COLOR: WHITE TO OFF-WHITE SHAPE: OVAL IMPRINT: D 10 , D10 FORM: ORAL TABLET, EXTENDED RELEASE DIRECTIONS STATE 1 PO BID
--- NOTE | 2021-12-12 13:54 | PM.IMPN ---
Progress Note: A&P Assessment and Plan (1) COVID-19: Code(s): U07.1 - COVID-19 Status: Acute Assessment and Plan: The patient was vaccinated received 1 booster. There is no evidence of pneumonia on x-ray though she is requiring 4 L nasal cannula. She has thus been started on dexamethasone and remdesivir per protocol. No concerns for concomitant bacterial pneumonia at this time. (2) Hypoxia: Code(s): R09.02 - Hypoxemia Status: Acute Assessment and Plan: Presumably secondary to above however would consider pulmonary embolism given recent long distance travel in addition to COVID infection. Due to a widespread shortage of IV contrast, will start with venous Doppler ultrasounds of the lower extremity and consider V/Q scan depending. In the interim I will give her 1 time dose of Lovenox, 1 milligram/kilogram. (3) Abnormal urinalysis: Code(s): R82.90 - Unspecified abnormal findings in urine Status: Acute Assessment and Plan: She suffers from a neurogenic bladder and does straight catheterization 3 times a day. She has previously been told that she has bacterial colonization and as she is having no abdominal discomfort or symptoms to suggest UTI, will hold on antibiotics. (4) Hypertension: Code(s): I10 - Essential (primary) hypertension Status: Acute Assessment and Plan: Blood pressures were reviewed and they have been running on the lower side of normal. At this time will hold her antihypertensives and monitor closely. She appears quite dry on exam and is being cautiously hydrated. (5) Multiple sclerosis: Code(s): G35 - Multiple sclerosis Status: Acute Assessment and Plan: No acute issues. (6) Dehydration: Code(s): E86.0 - Dehydration Status: Acute Assessment and Plan: She has had poor oral intake over the last 3 or 4 days and is quite dry on exam. Urine also shows 4+ ketones. Continue IV fluid rehydration with close monitoring of volume status. Additional Plan 12/12/2021 interval history: patient with COVID-19 patient remains clinically stable requiring 2 L of oxygen per nasal cannula, patient is being treated dexamethasone 2/10 and remdesivir 2/5, patient will receive 2nd dose of her medication, will reassess patient's to if oxygen apartment does not increased will do the home OT wall and possibly discharge the patient home, will have PT OT evaluate the patient and further recommendation to follow. Subjective Date/time seen: 12/12/21 13:54 HPI-This is a very pleasant 66-year-old female with multiple sclerosis, hypertension, hyperlipidemia, and history of kidney stones who presented to the emergency department from home for evaluation of fever, cough, and shortness of breath. She and her family members were at [place] last week and unfortunately several of them have come down with URI symptoms. The patient started feeling bad on Wednesday with a sore throat and it has been severe enough that she has not been eating or drinking much. She has also had a cough productive of clear sputum, mild shortness of breath, and temperature to 101 ? F. She tested positive for COVID 19 on a home test 2 days ago and was started on Paxlovid however she is not feeling any better. Her temperature was 101.7? F on arrival to the ER today. She did indeed test positive for SARS-CoV-2 by PCR.? Chest x-ray showed no acute cardiopulmonary disease however she is requiring 4 L nasal cannula to maintain her SpO2 in the mid to upper 90s. She denies sinus congestion, headache, chest pain, pleuritic pain, palpitations, vomiting, and diarrhea. 12/12/2021 interval history: patient with COVID-19 patient remains clinically stable requiring 2 L of oxygen per nasal cannula, patient is being treated dexamethasone 2/ and remdesivir 2/, patient will receive 2nd dose of her medication, will reassess patient's to if oxygen apartment does not increased will
[2021-12-13] VITALS (17 sets, daily range): BP systolic 101–135; BP diastolic 23–88; PULSE 75–107; RESP 16–20; TEMP 36.4–36.7; O2SAT 96–99
[2021-12-13] MEDS: DEXTROSE 5%/LACTATED RINGERS 1,000 ML 75 ML IV CONT ×2 (01:21→20:59)
[2021-12-13] MEDS: ALBUTEROL SULFATE NEB 2.5 MG/3 ML INH 5 MG INHALATION ×3 (02:22→20:18)
[2021-12-13 07:01] LABS: Hematocrit 38.7 % (37.0-47.0); Hemoglobin 12.9 g/dL (12.0-15.0); Mean Corpuscular HGB Conc 33.3 g/dl (32-36); Mean Corpuscular Hemoglobin 30.4 pg (26-34); Mean Corpuscular Volume 91.1 fl (80-100); Mean Platelet Volume 10.6 fl (7.4-10.4); Platelet Count Result 192 k/mm3 (150-375); Red Blood Count 4.25 M/mm3 (4.2-5.4); Red Cell Distribution Width 12.2 % (11.5-14.5)
[2021-12-13 07:20] LABS: Alanine Aminotransferase 43 U/L (6-35); Albumin Level 3.2 g/dL (3.5-5.1); Alkaline Phosphatase 56 U/L (38-126); Anion Gap 5 mmol/L (8-16); Aspartate Amino Transferase 52 U/L (14-36); Bilirubin,Total 0.4 mg/dL (0.2-1.3); Blood Urea Nitrogen 14 mg/dL (7-17); CRP 8.8 mg/dL (<1.0); Calcium 8.3 mg/dL (8.4-10.2); Carbon Dioxide 28 mmol/L (22-30); Chloride 105 mmol/L (98-107); Estimated CRCL calculation 133 ml/min; Estimated Glomerular Filt Rate > 60; Glucose 157 mg/dL (65-110); Potassium 3.6 mmol/L (3.4-5.0); Sodium 138 mmol/L (137-145)
[2021-12-13 07:28] LABS: INR 1.2; Prothrombin Time 14.7 Seconds (11.1-14.7)
[2021-12-13] MEDS: TIZANIDINE HCL 4 MG TABLET 8 MG PO (09:01)
[2021-12-13] MEDS: MULTIVITAMINS THERAPEUTIC TAB (*BKC) 1 TABLET PO (09:01)
[2021-12-13] MEDS: CHOLECALCIFEROL 1,000 UNITS TABLET 1000 UNITS PO (09:02)
[2021-12-13] MEDS: VENLAFAXINE HCL XR 75 MG CAP.ER.24H 150 MG PO (09:05)
[2021-12-13] MEDS: REMDESIVIR 100 MG/NS 250 ML 100 MG/250 ML BAG 250 MG IVPB (11:11)
--- NOTE | 2021-12-13 12:33 | PM.IMPN ---
Progress Note: A&P Assessment and Plan (1) COVID-19: Code(s): U07.1 - COVID-19 Status: Acute Assessment and Plan: The patient was vaccinated received 1 booster. There is no evidence of pneumonia on x-ray though she is requiring 4 L nasal cannula. She has thus been started on dexamethasone and remdesivir per protocol. No concerns for concomitant bacterial pneumonia at this time. (2) Hypoxia: Code(s): R09.02 - Hypoxemia Status: Acute Assessment and Plan: Presumably secondary to above however would consider pulmonary embolism given recent long distance travel in addition to COVID infection. Due to a widespread shortage of IV contrast, will start with venous Doppler ultrasounds of the lower extremity and consider V/Q scan depending. In the interim I will give her 1 time dose of Lovenox, 1 milligram/kilogram. (3) Abnormal urinalysis: Code(s): R82.90 - Unspecified abnormal findings in urine Status: Acute Assessment and Plan: She suffers from a neurogenic bladder and does straight catheterization 3 times a day. She has previously been told that she has bacterial colonization and as she is having no abdominal discomfort or symptoms to suggest UTI, will hold on antibiotics. (4) Hypertension: Code(s): I10 - Essential (primary) hypertension Status: Acute Assessment and Plan: Blood pressures were reviewed and they have been running on the lower side of normal. At this time will hold her antihypertensives and monitor closely. She appears quite dry on exam and is being cautiously hydrated. (5) Multiple sclerosis: Code(s): G35 - Multiple sclerosis Status: Acute Assessment and Plan: No acute issues. (6) Dehydration: Code(s): E86.0 - Dehydration Status: Acute Assessment and Plan: She has had poor oral intake over the last 3 or 4 days and is quite dry on exam. Urine also shows 4+ ketones. Continue IV fluid rehydration with close monitoring of volume status. Additional Plan 12/12/2021 interval history: patient with COVID-19 patient remains clinically stable requiring 2 L of oxygen per nasal cannula, patient is being treated dexamethasone 2/10 and remdesivir 2/5, patient will receive 2nd dose of her medication, will reassess patient's to if oxygen apartment does not increased will do the home OT wall and possibly discharge the patient home, will have PT OT evaluate the patient and further recommendation to follow. 12/13/2021 interval history: patient with COVID-19 patient remains clinically stable requiring 2 L of oxygen per nasal cannula, patient is being treated dexamethasone 3/10 and remdesivir 3/5, patient will receive 3rd dose of her medication, will reassess patient's to if oxygen requirement does not increased will do the home OT evalution and possibly discharge the patient home, will have PT OT evaluate the patient and further recommendation to follow. Subjective Date/time seen: 12/13/21 12:33 12/13/2021 interval history: patient with COVID-19 patient remains clinically stable requiring 2 L of oxygen per nasal cannula, patient is being treated dexamethasone 3/10 and remdesivir 3/5, patient will receive 3rd dose of her medication, will reassess patient's to if oxygen requirement does not increased will do the home OT evalution and possibly discharge the patient home, will have PT OT evaluate the patient and further recommendation to follow. Exam Narrative: Patient is comfortable, NAD HEENT: eyes are clear and none icteric LUNGS: normal respiratory effort ABD: not distended Lower extremities: no edema SKIN: nonjaundiced Neuro: grossly intact. Objective Data Vital Signs Vital Signs: Vital Signs - 24 hr 12/12/21 14:45 12/12/21 15:18 12/12/21 15:26 Temperature 98.6 F Pulse Rate 100 100 105 H Respiratory Rate 16 18 18 Blood Pressure 102/58 L Pulse Oximetry 98 Oxygen Delivery Oxygen Fl
[2021-12-13] MEDS: ALBUTEROL SULFATE NEB 2.5 MG/0.5 ML INH 5 MG (14:30)
[2021-12-13] MEDS: GABAPENTIN 100 MG CAPSULE 200 MG PO (21:01)
[2021-12-14] VITALS (16 sets, daily range): BP systolic 114–124; BP diastolic 57–64; PULSE 72–107; RESP 14–20; TEMP 36.8; O2SAT 94–97
[2021-12-14 00:49] LABS: Vancomycin Trough 7.8 ug/mL (10.0-20.0)
[2021-12-14 05:37] LABS: Appearance Urine Clear (Clear); Bilirubin Urine Negative (Negative); Blood Urine Negative (Negative); Color Urine Yellow (Yellow); Glucose Urine UA Negative (Negative); Ketones Urine Negative (Negative); Leukocyte Esterase Ur Negative LEU/UL (Negative); Nitrate Urine Negative (Negative); Protein Urine Negative (Negative); Urobilinogen Urine 0.2 mg/dL (<2.0)
[2021-12-14 05:49] LABS: Mucus Urine Rare /lpf; RBC Urine 0-2 /hpf (0-2); Squamous Epithelial Cell Urine Rare /hpf (Few); WBC Urine 0-3 /hpf
[2021-12-14 06:02] LABS: Hematocrit 35.6 % (37.0-47.0); Hemoglobin 12.1 g/dL (12.0-15.0); Mean Corpuscular Hemoglobin 30.3 pg (26-34); Mean Platelet Volume 10.3 fl (7.4-10.4); Platelet Count Result 224 k/mm3 (150-375); Red Cell Distribution Width 11.9 % (11.5-14.5); White Blood Count 8.3 K/mm3 (4.5-10.0)
[2021-12-14 06:09] LABS: Add Urine Microscopic? NO
[2021-12-14 06:19] LABS: INR 1.3; Prothrombin Time 15.5 Seconds (11.1-14.7)
[2021-12-14 06:22] LABS: Alanine Aminotransferase 77 U/L (6-35); Albumin Level 3.1 g/dL (3.5-5.1); Alkaline Phosphatase 70 U/L (38-126); Anion Gap 5 mmol/L (8-16); Aspartate Amino Transferase 93 U/L (14-36); Bilirubin,Total 0.3 mg/dL (0.2-1.3); Blood Urea Nitrogen 11 mg/dL (7-17); CRP 4.9 mg/dL (<1.0); Calcium 8.2 mg/dL (8.4-10.2); Carbon Dioxide 27 mmol/L (22-30); Chloride 106 mmol/L (98-107); Estimated CRCL calculation 108 ml/min; Estimated Glomerular Filt Rate > 60; Glucose 151 mg/dL (65-110); Potassium 3.3 mmol/L (3.4-5.0); Sodium 138 mmol/L (137-145)
[2021-12-14] MEDS: ALBUTEROL SULFATE NEB 2.5 MG/3 ML INH 5 MG INHALATION ×3 (08:12→20:37)
[2021-12-14] MEDS: ALBUTEROL SULFATE NEB 2.5 MG/0.5 ML INH (08:17)
[2021-12-14] MEDS: MULTIVITAMINS THERAPEUTIC TAB (*BKC) 1 TABLET PO (09:19)
[2021-12-14] MEDS: CHOLECALCIFEROL 1,000 UNITS TABLET 1000 UNITS PO (09:19)
[2021-12-14] MEDS: VENLAFAXINE HCL XR 75 MG CAP.ER.24H 150 MG PO (09:19)
--- NOTE | 2021-12-14 12:18 | PM.IMPN ---
Progress Note: A&P Assessment and Plan (1) COVID-19: Code(s): U07.1 - COVID-19 Status: Acute Assessment and Plan: The patient was vaccinated received 1 booster. There is no evidence of pneumonia on x-ray though she is requiring 4 L nasal cannula. She has thus been started on dexamethasone and remdesivir per protocol. No concerns for concomitant bacterial pneumonia at this time. (2) Hypoxia: Code(s): R09.02 - Hypoxemia Status: Acute Assessment and Plan: Presumably secondary to above however would consider pulmonary embolism given recent long distance travel in addition to COVID infection. Due to a widespread shortage of IV contrast, will start with venous Doppler ultrasounds of the lower extremity and consider V/Q scan depending. In the interim I will give her 1 time dose of Lovenox, 1 milligram/kilogram. (3) Abnormal urinalysis: Code(s): R82.90 - Unspecified abnormal findings in urine Status: Acute Assessment and Plan: She suffers from a neurogenic bladder and does straight catheterization 3 times a day. She has previously been told that she has bacterial colonization and as she is having no abdominal discomfort or symptoms to suggest UTI, will hold on antibiotics. (4) Hypertension: Code(s): I10 - Essential (primary) hypertension Status: Acute Assessment and Plan: Blood pressures were reviewed and they have been running on the lower side of normal. At this time will hold her antihypertensives and monitor closely. She appears quite dry on exam and is being cautiously hydrated. (5) Multiple sclerosis: Code(s): G35 - Multiple sclerosis Status: Acute Assessment and Plan: No acute issues. (6) Dehydration: Code(s): E86.0 - Dehydration Status: Acute Assessment and Plan: She has had poor oral intake over the last 3 or 4 days and is quite dry on exam. Urine also shows 4+ ketones. Continue IV fluid rehydration with close monitoring of volume status. Additional Plan 12/12/2021 interval history: patient with COVID-19 patient remains clinically stable requiring 2 L of oxygen per nasal cannula, patient is being treated dexamethasone 2/10 and remdesivir 2/5, patient will receive 2nd dose of her medication, will reassess patient's to if oxygen apartment does not increased will do the home OT wall and possibly discharge the patient home, will have PT OT evaluate the patient and further recommendation to follow. 12/13/2021 interval history: patient with COVID-19 patient remains clinically stable requiring 2 L of oxygen per nasal cannula, patient is being treated dexamethasone 3/10 and remdesivir 3/5, patient will receive 3rd dose of her medication, will reassess patient's to if oxygen requirement does not increased will do the home OT evalution and possibly discharge the patient home, will have PT OT evaluate the patient and further recommendation to follow. 12/14/2021 interval history: patient with COVID-19 patient remains clinically stable requiring 2 L of oxygen per nasal cannula, patient is being treated dexamethasone 4/10 and remdesivir 4/5, patient will receive 4rd dose of her medication, Patient has become culture is growing Pseudomonas patient with history Ms and chronically on immunosuppression will discuss with the advertising representative for their opinion, patient urine culture is growing E coli ESBL, patient with history of self catheterization, denies any dysuria or frequency of urination most likely colonization, will reassess patient, if oxygen requirement does not increased will do the home O2 evalution and possibly discharge the patient home tomorrow. will have PT OT evaluate the patient and further recommendation to follow. Subjective Date/time seen: 12/14/21 12:18 12/14/2021 interval history: patient with COVID-19 patient remains clinically stable requiring 2 L of oxygen per nasal cannula, patient is being tr
[2021-12-14] MEDS: REMDESIVIR 100 MG/NS 250 ML 100 MG/250 ML BAG 250 MG IVPB (12:55)
[2021-12-14] MEDS: ALBUTEROL SULFATE NEB 2.5 MG/0.5 ML INH 5 MG (20:37)
[2021-12-14] MEDS: GABAPENTIN 100 MG CAPSULE 200 MG PO (21:06)
[2021-12-15] VITALS: PULSE 93
[2021-12-15 04:00] VITALS: PULSE 79
[2021-12-15 05:46] VITALS: BP 125/71; PULSE 86; RESP 16; TEMP 36.9; O2SAT 96
[2021-12-15 05:48] LABS: Hematocrit 35.8 % (37.0-47.0); Mean Corpuscular HGB Conc 33.5 g/dl (32-36); Mean Corpuscular Hemoglobin 29.8 pg (26-34); Mean Corpuscular Volume 88.8 fl (80-100); Mean Platelet Volume 9.9 fl (7.4-10.4); Platelet Count Result 280 k/mm3 (150-375); Red Blood Count 4.03 M/mm3 (4.2-5.4)
[2021-12-15 05:59] LABS: INR 1.3; Prothrombin Time 15.4 Seconds (11.1-14.7)
[2021-12-15 06:01] LABS: Alanine Aminotransferase 87 U/L (6-35); Albumin Level 2.9 g/dL (3.5-5.1); Alkaline Phosphatase 73 U/L (38-126); Anion Gap 5 mmol/L (8-16); Aspartate Amino Transferase 72 U/L (14-36); Bilirubin,Total 0.3 mg/dL (0.2-1.3); Blood Urea Nitrogen 15 mg/dL (7-17); Carbon Dioxide 26 mmol/L (22-30); Chloride 107 mmol/L (98-107); Estimated CRCL calculation 110 ml/min; Estimated Glomerular Filt Rate > 60; Glucose 110 mg/dL (65-110); Potassium 3.5 mmol/L (3.4-5.0); Sodium 138 mmol/L (137-145)
[2021-12-15] MEDS: ALBUTEROL SULFATE NEB 2.5 MG/0.5 ML INH (09:20)
[2021-12-15] MEDS: ALBUTEROL SULFATE NEB 2.5 MG/0.5 ML INH 5 MG (09:21)
[2021-12-15 09:22] VITALS: PULSE 86; RESP 12
[2021-12-15 09:25] VITALS: PULSE 80; RESP 12
[2021-12-15] MEDS: TIZANIDINE HCL 4 MG TABLET 8 MG PO (09:43)
[2021-12-15] MEDS: CHOLECALCIFEROL 1,000 UNITS TABLET 1000 UNITS PO (09:43)
[2021-12-15] MEDS: MULTIVITAMINS THERAPEUTIC TAB (*BKC) 1 TABLET PO (09:44)
[2021-12-15] MEDS: VENLAFAXINE HCL XR 75 MG CAP.ER.24H 150 MG PO (09:44)
[2021-12-15] MEDS: REMDESIVIR 100 MG/NS 250 ML 100 MG/250 ML BAG 250 MG IVPB (10:30)
--- NOTE | 2021-12-15 11:06 | PCPTNOTE ---
Spoke with patient, she is dependent at baseline. Hospitalist and RN notified at this date. Orders discharged.
--- NOTE | 2021-12-15 12:08 | PCOTNOTE ---
Spoke with patient, who states she is at her baseline and has no decline in function due to this hospitalization, and declines need for occupational therapy at this time. Hospitalist and nursing aware and agree. Canceling order for evaluation.
--- NOTE | 2021-12-15 12:40 | PM.DS ---
DS: Admitting Diagnosis Discharge Date 12/15/2021 Admitting Diagnosis shortness of breath DS: Discharge Diagnosis Discharge Diagnosis (1) COVID-19: Code(s): U07.1 - COVID-19 Status: Acute Assessment and Plan: The patient was vaccinated received 1 booster. There is no evidence of pneumonia on x-ray though she is requiring 4 L nasal cannula. She has thus been started on dexamethasone and remdesivir per protocol. No concerns for concomitant bacterial pneumonia at this time. (2) Hypoxia: Code(s): R09.02 - Hypoxemia Status: Acute Assessment and Plan: Presumably secondary to above however would consider pulmonary embolism given recent long distance travel in addition to COVID infection. Due to a widespread shortage of IV contrast, will start with venous Doppler ultrasounds of the lower extremity and consider V/Q scan depending. In the interim I will give her 1 time dose of Lovenox, 1 milligram/kilogram. (3) Abnormal urinalysis: Code(s): R82.90 - Unspecified abnormal findings in urine Status: Acute Assessment and Plan: She suffers from a neurogenic bladder and does straight catheterization 3 times a day. She has previously been told that she has bacterial colonization and as she is having no abdominal discomfort or symptoms to suggest UTI, will hold on antibiotics. (4) Hypertension: Code(s): I10 - Essential (primary) hypertension Status: Acute Assessment and Plan: Blood pressures were reviewed and they have been running on the lower side of normal. At this time will hold her antihypertensives and monitor closely. She appears quite dry on exam and is being cautiously hydrated. (5) Multiple sclerosis: Code(s): G35 - Multiple sclerosis Status: Acute Assessment and Plan: No acute issues. (6) Dehydration: Code(s): E86.0 - Dehydration Status: Acute Assessment and Plan: She has had poor oral intake over the last 3 or 4 days and is quite dry on exam. Urine also shows 4+ ketones. Continue IV fluid rehydration with close monitoring of volume status. DS: Summary Hospital Course Reason for hospitalization: Chief Complaint: Fever, cough, shortness of breath. Narrative: This is a very pleasant 66-year-old female with multiple sclerosis, hypertension, hyperlipidemia, and history of kidney stones who presented to the emergency department from home for evaluation of fever, cough, and shortness of breath. She and her family members were at [employer] last week and unfortunately several of them have come down with URI symptoms. The patient started feeling bad on Wednesday with a sore throat and it has been severe enough that she has not been eating or drinking much. She has also had a cough productive of clear sputum, mild shortness of breath, and temperature to 101 ? F. She tested positive for COVID 19 on a home test 2 days ago and was started on Paxlovid however she is not feeling any better. Her temperature was 101.7? F on arrival to the ER today. She did indeed test positive for SARS-CoV-2 by PCR.? Chest x-ray showed no acute cardiopulmonary disease however she is requiring 4 L nasal cannula to maintain her SpO2 in the mid to upper 90s. She denies sinus congestion, headache, chest pain, pleuritic pain, palpitations, vomiting, and diarrhea. Hospital Course: patient with COVID-19 patient remains clinically stable requiring 2 L of oxygen per nasal cannula, patient is being treated dexamethasone 10/12 and? remdesivir 10/07,? patient will receive 4rd dose of her medication, Patient has become culture is growing Pseudomonas patient with history Ms and chronically on immunosuppression will discuss with the senior maintenance mechanic for their opinion,? patient urine culture is growing E coli ESBL, patient with history of self catheterization, denies any dysuria or frequency of urination most likely colonization, will reassess patient, ? if oxygen? re
--- NOTE | 2021-12-15 13:59 | PCRCNOTE ---
Per Treatment: Patient refused treatment
[2021-12-15 16:26] LABS: Pneumococcal Antigen Urine Not Detected (Not Detected)
[2021-12-15 23:18] LABS: Legionella pneumophila Ag Ur Not Detected (Not Detected)
== END 2021-12-15 14:30 | disposition home or self-care (01) | DRG 178 ==
LOC: ANHED 09:35 → ANH2MED 12:30
PROVIDERS: Internal Medicine; Physician Assistant; Admitting Provider Student in an Organized Health Care Education/Training Program; Emergency Provider Nurse Practitioner Family; PCP Family Medicine Adolescent Medicine; Visit Provider Family Medicine
DX: U07.1 COVID-19 (principal); Z16.12 Extended spectrum beta lactamase (ESBL) resistance; Z22.39 Carrier of other specified bacterial diseases; R09.02 Hypoxemia; N31.9 Neuromuscular dysfunction of bladder, unspecified; B96.5 Pseudomonas (aeruginosa) (mallei) (pseudomallei) as the cause of diseases classified elsewhere; B95.7 Other staphylococcus as the cause of diseases classified elsewhere; R82.90 Unspecified abnormal findings in urine; I10 Essential (primary) hypertension; G35 Multiple sclerosis; E86.0 Dehydration; E78.5 Hyperlipidemia, unspecified; Z87.442 Personal history of urinary calculi; Z85.820 Personal history of malignant melanoma of skin; Z99.3 Dependence on wheelchair
CPT/HCPCS: 36415; 51701; 71045; 80053; 80202; 81001; 81003; 82728; 83605; 83615; 83735; 84484; 85025; 85027; 85610; 85730; 86140; 87040; 87070; 87077; 87081; 87086; 87147; 87181; 87186; 87205; 87449; 87502; 87899; 93005; 93970; 94640; 96361; 96375; 99285; A9270; C9803; G0378; J0131; J0248; J1100; J1650; J2405; J3370; J7030; J7121; U0003; U0005

== ENCOUNTER 2022-07-20 08:48 | Outpatient (CLI) | payer MEDICARE, BC, SELFPAY ==
--- NOTE | ~2022-07-20 | XR_ITS ---
XR abdomen/kub 1V DATE: 07/20/2022 09:15 INDICATION: History of kidney stones TECHNIQUE: 2 supine AP views COMPARISON: 06/10/2021 KUB FINDINGS: A subtle small calcification overlies the lower pole left kidney. Bowel and gas shadows ove rlie the kidneys, which may obscure subtle renal calcifications. Noncontrast CT abdomen pelvis examin ation would be more accurate and definitive for evaluation of urinary tract calculi. No evidence of bowel obstruction. Multiple bilateral pelvic calcified phleboliths. The lung bases appear clear. Heart size appears normal. IMPRESSION: Nonspecific abdomen. Possible very small lower pole left renal calcified calculus. Noncontrast CT abdomen pelvis would be much more accurate and definitive for evaluation of urinary tr act calculi Reviewed, dictated and finalized at Location A. Reviewed, dictated and finalized at location B. BLOCKER IMPRESSION: Nonspecific abdomen. Possible very small lower pole left renal calc ified calculus. Noncontrast CT abdomen pelvis would be much more accurate and definitive for ev aluation of urinary tract calculi
--- NOTE | ~2022-07-20 | US_ITS ---
US retroperitoneal comp 07/20/2022 11:24 Procedure: Realtime transabdominal ultrasound of the kidneys and bladder. Indication: History of kidney stones Comparison: CT abdomen 06/15/2019 Findings: Renal echotexture is normal bilaterally without hydronephrosis, contour deforming mass. The re is an echogenic focus in the left kidney measuring 5 mm, consistent with nonobstructing renal ston e. The right kidney measures 9.6 cm and left kidney measures 9.6 cm. Bladder within normal limits. Impression: 1: Echogenic foci in the left kidney measuring 5 mm, consistent with nonobstructing stone. Reviewed, dictated and finalized at location A. R DIRECTOR Impression: 1: Echogenic foci in the left kidney measuring 5 mm, consistent with nonobstruc ting stone.
== END 2022-07-20 08:49 | disposition home or self-care (01) ==
PROVIDERS: PCP Family Medicine Adolescent Medicine; Visit Provider Urology
DX: N20.0 Calculus of kidney (principal)
CPT/HCPCS: 74018; 76770

== ENCOUNTER → 2023-02-04 12:34 | Outpatient (CLI) | payer MEDICARE, BC, SELFPAY ==
--- NOTE | ~2023-02-04 | MM_ITS ---
EXAMINATION: MM screening марина BI w raphael HISTORY: Screening mammogram TECHNIQUE: Craniocaudal and mediolateral oblique 3-D tomosynthesis images were obtained and synthetic 2-D images were generated. CAD analysis was submitted and interpreted. COMPARISON: 11/14/2021, 11/05/2020, 09/05/2019 bilateral screening mammogram examinations BREAST PARENCHYMAL COMPOSITION: There are scattered areas of fibroglandular density. FINDINGS: Scattered occasional bilateral benign calcifications are again noted. Stable right axillary tail benign-appearing lymph node There is no evidence of suspicious mass, calcification, or architec tural distortion to suggest malignancy in either breast. There has been no suspicious interval change . IMPRESSION: 1. No mammographic evidence of malignancy. 2. Recommend routine screening mammography in one year. BI-RADS Category 2: Benign finding(s). Reviewed, dictated and finalized at location A.
== END ==
PROVIDERS: PCP Family Medicine Adolescent Medicine; Visit Provider Obstetrics & Gynecology Gynecology
DX: Z12.31 Encounter for screening mammogram for malignant neoplasm of breast (principal)
CPT/HCPCS: 77063; 77067

== ENCOUNTER 2023-07-21 14:06 | Outpatient (CLI) | payer MEDICARE, BC, SELFPAY ==
--- NOTE | ~2023-07-21 | US_ITS ---
EXAMINATION: US retroperitoneal comp DATE: 07/21/2023 15:22 INDICATION: Bilateral kidney stones. TECHNIQUE: Multiple ultrasound grayscale images of the kidneys were obtained. COMPARISON: Ultrasound 07/20/2022, CT abdomen and pelvis 06/15/2019 FINDINGS: The right kidney measures 11.0 x 5.0 x 4.6 cm. The left kidney measures 9.0 x 4.8 x 4.8 cm. The kidne ys demonstrate normal parenchymal echogenicity. There is mild left hydronephrosis. The bladder is nor mal. IMPRESSION: 1. Mild left hydronephrosis, new from 07/20/22. Reviewed, dictated and finalized at location E. [employer]
--- NOTE | ~2023-07-21 | XR_ITS ---
EXAMINATION: XR abdomen/kub 1V DATE: 07/21/2023 15:34 INDICATION: Bilateral kidney stones. TECHNIQUE: A supine view of the abdomen on 2 radiographs was obtained. COMPARISON: Abdomen radiographs 07/20/2022, CT abdomen and pelvis 06/15/2019 FINDINGS: There are no dilated loops of bowel. The kidneys are obscured by bowel. There are phlebolit hs in the pelvis and ovarian veins. IMPRESSION: 1. No visible urolithiasis. Reviewed, dictated and finalized at location E. 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 No visible urolithiasis.
== END 2023-07-21 14:07 | disposition home or self-care (01) ==
PROVIDERS: PCP Family Medicine Adolescent Medicine; Visit Provider Urology
DX: N20.0 Calculus of kidney (principal)
CPT/HCPCS: 74018; 76770

== ENCOUNTER 2023-08-03 12:56 | Outpatient (CLI) | payer MEDICARE, BC, SELFPAY ==
--- NOTE | ~2023-08-03 | CT_ITS ---
. EXAMINATION: CT abdomen pelvis wo con DATE: 08/03/2023 13:30 INDICATION: Left hydronephrosis. History of stones. TECHNIQUE: Computed tomography (CT) of the abdomen and pelvis was performed without intravenous contr ast. Automated exposure control and iterative reconstruction technique were employed. Exam dose: 846 .94 mGy-cm total exam DLP. COMPARISON: 08/03/2023 KUB FINDINGS: There is mild discoid atelectasis and/or scarring at the lung bases. Occasional bilateral p osterior parietal pleural calcifications. Normal heart size. No pericardial or pleural effusion. The liver, gallbladder, bile ducts, pancreas, pancreatic duct and spleen as well as the adrenal gland s appear unremarkable on this limited noncontrast examination. No urinary tract calculus or hydroureteronephrosis is noted with the exception of an approximately 4. 6 x 7.1 mm calculus in the dependent aspect of the urinary bladder on the left. The urinary bladder, uterus and adnexal areas otherwise appear unremarkable. There are numerous bilateral calcified pelvic phleboliths. There is atherosclerotic calcification but normal caliber of the abdominal aorta. No intraperitoneal or retroperitoneal or pelvic mass lesion or adenopathy or ascites is detected. Prominent amount of fecal material in the colon. No bowel obstruction or intraperitoneal free air is detected. Small fat-containing umbilical hernia. Severe degenerative disc disease at L5-S1. IMPRESSION: 4.6 x 7.1 mm calculus in the dependent aspect of the urinary bladder No hydronephrosis Reviewed, dictated and finalized at Location A. Reviewed, dictated and finalized at location L. 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
--- NOTE | ~2023-08-03 | XR_ITS ---
Supine and upright views of the abdomen Clinical history: Renal stone COMPARISON: 07/21/2023 Findings: Bowel gas pattern is nonspecific. Prominent stool left colon again present. No evidence for obstruction or free air. No abnormal mass lesion or calcification is seen. Osseous structures are in tact. Impression: No definite renal stone seen. Prominent stool left colon. Reviewed, dictated and finalized at [facility]. PASTER Impression: No definite renal stone seen. Prominent stool left colon.
== END 2023-08-03 12:57 | disposition home or self-care (01) ==
LOC: ANHIMG 12:57
PROVIDERS: PCP Family Medicine Adolescent Medicine; Visit Provider Urology
DX: N21.0 Calculus in bladder (principal)
CPT/HCPCS: 74018; 74176

== ENCOUNTER 2023-10-15 15:31 | Outpatient (CLI) | payer MEDICARE, BC, SELFPAY ==
--- NOTE | ~2023-10-15 | CT_ITS ---
EXAMINATION: CT abdomen pelvis wo con DATE: 10/15/2023 16:01 INDICATION: Right upper quadrant abdominal pain. History kidney stones. TECHNIQUE: Computed tomography (CT) of the abdomen and pelvis was performed without intravenous contr ast. Automated exposure control and iterative reconstruction technique were employed. Exam dose: 851 .91 mGy-cm total exam DLP. COMPARISON: October 15, 2023 KUB August 03, 2023 CT abdomen pelvis FINDINGS: Mild discoid atelectasis or scarring in the lower lung zones. No basilar consolidation. Nor mal heart size. No pericardial or pleural effusion. Small sliding hiatal hernia. The gallbladder is present. No pericholecystic fluid or fat stranding or gallbladder wall thickening is evident. No bile duct or pancreatic duct dilatation. No hepatic, splenic or pancreatic, and adrenal space-occupying mass lesion. Suggestion of an approximately 11 mm hypoattenuating lesion at the upper pole of the left kidney with near fluid attenuation, possibly a cyst. However, this is indeterminate. Consider repeat examination with intravenous contrast material or MR examination for more definitive evaluation. No other apparent renal space-occupying mass lesion is evident on this limited noncontrast examinatio n. No urinary tract calculus or hydroureteronephrosis. The urinary bladder calculus noted in the left de pendent aspect of the urinary bladder on 08/03/2023 is no longer identified. No urinary bladder wall t hickening or fat stranding around the urinary bladder. There are numerous calcified phleboliths of the pelvis. There is atherosclerotic calcification but normal caliber of the abdominal aorta. No intraperitoneal or retroperitoneal or pelvic mass lesion or adenopathy or ascites. The uterus and adnexal areas are unremarkable. Diffuse osteopenia. Degenerative changes of the thoracic and lumbar spine including severe degenerati ve disease at L5-S1. Bilateral hip osteoarthritis. No suspicious osteolytic or osteoblastic lesions are identified. IMPRESSION: Small sliding hiatal hernia Approximately 11 mm hypoattenuating lesion of upper pole of left kidney, indeterminate, possibly a cy st. Consider repeat examination with IV contrast material or MR examination for more definitive evalu ation No urinary tract calculus or hydroureteronephrosis and minimal resolution of bladder stones since 07/07 Reviewed, dictated and finalized at Location A. Reviewed, dictated and finalized at location A. IMPRESSION: Small sliding hiatal hernia Approximately 11 mm hypoattenuating lesion of upper pole of left kidney, indete rminate, possibly a cyst. Consider repeat examination with IV contrast material or MR examination for more definitive evaluation No urinary tract calculus or hydroureteronephrosis and minimal resolution of bl adder stones since 08/03/2023
--- NOTE | ~2023-10-15 | XR_ITS ---
XR abdomen/kub 1V DATE: 10/15/2023 15:55 INDICATION: Kidney stones TECHNIQUE: 2 AP views COMPARISON: 08/03/2023 CT abdomen pelvis 08/03/2023 KUB FINDINGS: Multiple bilateral calcified pelvic phleboliths. There is a prominent amount of fecal material within the colon. No bowel obstruction is noted. No vis ceromegaly is detected. No apparent renal calcification is noted. Heart size appears normal. Lung bases are clear. IMPRESSION: Nonspecific abdomen Reviewed, dictated and finalized at Location A. Reviewed, dictated and finalized at location A. IMPRESSION: Nonspecific abdomen
== END 2023-10-15 15:32 | disposition home or self-care (01) ==
LOC: ANHIMG 15:32
PROVIDERS: PCP Family Medicine Adolescent Medicine; Visit Provider Urology
DX: Z87.442 Personal history of urinary calculi (principal); K44.9 Diaphragmatic hernia without obstruction or gangrene
CPT/HCPCS: 74018; 74176

== ENCOUNTER 2023-10-19 11:17 | Emergency (ER) | payer MEDICARE, BC, SELFPAY ==
--- NOTE | ~2023-10-19 | CT_ITS ---
EXAMINATION: CT abdomen pelvis w con DATE: 10/19/2023 12:27 INDICATION: Right lower quadrant pain TECHNIQUE: Computed tomography (CT) of the abdomen and pelvis was performed with 100 cc Omnipaque 350 intravenous contrast. The dose-length product was 1104.29 mGy-cm. Automated exposure control and iterative reconstruction technique were employed. COMPARISON: CT dated 10/15/2023 FINDINGS: There is right lower lobe atelectasis. Heart size is normal. Small right pleural effusion. Study limited by motion artifact. The liver, spleen, pancreas, adrenal glands and kidneys are unremar kable. Nonobstructive bowel gas pattern. The appendix is not positively visualized. There is no edwina cecal inflammatory change to suggest appendicitis. Bladder is decompressed. There is a urachal remnan t. No significant vascular abnormality. No lymphadenopathy. Small fat-containing umbilical hernia. No abnormal pelvic masses or fluid collections. There is evidence of pelvic relaxation. No evidence for diverticulitis. No free air or free fluid. No lymphadenopathy. There are calcified injection granulo mas in the gluteal regions. Severe lumbar spondylosis. IMPRESSION: 1. No acute abdominal abnormality. Reviewed, dictated and finalized at location B.
[2023-10-19 11:21] VITALS: BP 116/66; PULSE 108; RESP 18; TEMP 36.9; O2SAT 97
--- NOTE | 2023-10-19 11:29 | ED.ABDPAIN ---
HPI - Abdominal Pain General Chief Complaint: Abdominal Pain Stated Complaint: appendicitis Time Seen by Provider: 10/19/23 11:22 History of Present Illness HPI narrative: 68-year-old female with history of MS, chronic constipation, neurogenic bladder and frequent kidney stones presents to the emergency room from a local urgent care for further evaluation the right lower quadrant abdominal pain. Patient states that she has been experiencing abdominal pain for over a week. Denies any radiating pain, alleviating or aggravating factors. States her last bowel movement was 4 days ago. Patient states 5 days ago she was evaluated by her urologist for right lower quadrant pain, a non con abdominal CT was performed, showing no evidence of kidney stones. Patient states the pain is continued. Takes Metamucil for her chronic constipation. Denies any dysuria. Denies fever. Related Data Home Medications Medication Instructions Recorded Confirmed cholecalciferol (vitamin D3) 25 25 mcg PO DAILY 09/24/21 07/20/23 mcg (1,000 unit) capsule dalfampridine 10 mg 10 mg PO Q12H 09/24/21 07/20/23 tablet,extended release,12 hr gabapentin 100 mg capsule 200 mg PO QHS 09/24/21 07/20/23 multivitamin (Multiple Vitamins 1 tablet PO DAILY 09/24/21 07/20/23 tablet) oxybutynin chloride 10 mg 20 mg PO DAILY 09/24/21 07/20/23 tablet,extended release 24 hr tizanidine 4 mg capsule 8 mg PO QHS PRN Muscle Spasm 09/24/21 07/20/23 docusate sodium 100 mg capsule 100 mg PO DAILY PRN constipation 07/16/23 07/20/23 (Colace) polyethylene glycol 3350 17 17 g PO BID 07/16/23 07/20/23 gram/dose oral powder (Miralax) Allergies Allergy/AdvReac Type Severity Reaction Status Date / Time codeine Allergy Mild Nausea and Verified 10/19/23 11:26 Vomiting Sulfa (Sulfonamide Allergy Mild Nausea and Verified 10/19/23 11:26 Antibiotics) Vomiting Review of Systems Review of Systems: CONSTITUTIONAL: Denies fever, chills, or sweats. EYES: Denies visual changes, redness, or discharge. ENT: Denies rhinorrhea, congestion, sore throat, or otalgia. CARDIOVASCULAR: Denies chest pain, palpitations, or edema. RESPIRATORY: Denies cough or dyspnea. GASTROINTESTINAL: Reports abdomen pain, constipation GENITOURINARY: Denies dysuria or hematuria. SKIN: Denies rash or itching. MUSCULOSKELETAL: Denies back pain, joint pain, or myalgia. NEUROLOGIC: Denies headache, numbness, dizziness, or weakness. PSYCHIATRIC: Denies anxiety or depression. [facility] Past Medical History Medical History Depression Hypercholesterolemia Hypertension Kidney stones Melanoma Multiple sclerosis Neurogenic bladder Surgical History Surgical History History of cystoscopy History of lithotripsy Family History Family History Grandparent Breast cancer Mother Heart disease Hypertension Father Heart disease Hypertension Social History Social History Social History: Surrogate decision maker: Breana Taylor, daughter. Code status: Full code. Smoking status: Never smoker Second hand tobacco smoke exposure: No Alcohol intake: never Substance use: never Substance use type: does not use Living arrangements: with family Occupation/Education: unemployed Spiritual care concerns: No Agree to blood products: Yes Exam Narrative: GENERAL: Chronically ill-appearing, well-nourished, no physical limitations, and in no acute distress. HEAD: Normocephalic, atraumatic. EYES: Conjunctivae normal, PERRLA and EOMI. CHEST: Clear to auscultation. No respiratory distress. No wheezes rales or rhonchi. HEART: Regular rate and rhythm. No murmur heard. Normal peripheral pulses. ABDOMEN: Soft, of acute tenderness, nondistended, normal active bowel soun
[2023-10-19] MEDS: SODIUM CHLORIDE 0.9% IV 1,000 ML 999 ML IV CONT (11:39)
[2023-10-19 11:40] LABS: Basophils Absolute Auto 0.1 K/mm3 (0.0-0.1); Basophils Percent Auto 0.6 % (0.2-1.2); Eosinophils Absolute Auto 0.1 K/mm3 (0-0.3); Eosinophils Percent Auto 0.7 % (0-4.4); Hematocrit 39.2 % (37.0-47.0); Hemoglobin 12.7 g/dL (12.0-15.0); Immature Granulocyte Absolute 0.16 K/mm3 (0.00-0.031); Lymphocytes Absolute Auto 1.22 K/mm3 (0.9-3.2); Lymphocytes Percent Auto 7.8 % (18.3-44.2); Mean Corpuscular HGB Conc 32.4 g/dl (32-36); Mean Corpuscular Hemoglobin 29.6 pg (26-34); Mean Corpuscular Volume 91.4 fl (80-100); Monocytes Absolute Auto 1.8 K/mm3 (0.1-0.6); Monocytes Percent Auto 11.3 % (2.6-8.5); Neutrophils Absolute Auto 12.3 K/mm3 (1.3-6.7); Neutrophils Percent Auto 78.6 % (45.5-73.1); Platelet Count Result 644 k/mm3 (150-375); Red Blood Count 4.29 M/mm3 (4.2-5.4); White Blood Count 15.6 K/mm3 (4.5-10.0)
[2023-10-19 11:51] LABS: Alanine Aminotransferase 99 U/L (6-35); Albumin Level 3.7 g/dL (3.5-5.1); Alkaline Phosphatase 222 U/L (38-126); Anion Gap 8 mmol/L (4-12); Aspartate Amino Transferase 71 U/L (14-36); Bilirubin,Total 0.4 mg/dL (0.2-1.3); Blood Urea Nitrogen 24 mg/dL (7-17); Calcium 9.7 mg/dL (8.4-10.2); Carbon Dioxide 23 mmol/L (22-30); Chloride 102 mmol/L (98-107); Estimated CRCL calculation 85 ml/min; Estimated Glomerular Filt Rate > 60; Glucose 125 mg/dL (65-110); Lactic Acid Reflex 1.4 mmol/L (0.7-2.0); Potassium 3.9 mmol/L (3.4-5.0); Sodium 133 mmol/L (137-145)
[2023-10-19 12:14] LABS: Appearance Urine Cloudy (Clear); Bacteria Urine 4+ /hpf; Bilirubin Urine Negative (Negative); Blood Urine 2+ (Negative); Color Urine Yellow (Yellow); Glucose Urine UA 1+ mg/dL (Negative); Ketones Urine 1+ mg/dL (Negative); Leukocyte Esterase Ur 2+ LEU/UL (Negative); Nitrate Urine Positive (Negative); Non Pathogenic Casts 0-2; Protein Urine Trace mg/dL (Negative); RBC Urine 0-2 /hpf (0-2); Specific Grav Ur 1.023 (1.001-1.035); Squamous Epithelial Cell Urine None Seen /hpf (Few); WBC Urine 21-50 /hpf (0-3); pH Urine 5.5 (5.0-9.0)
[2023-10-19 12:16] LABS: Add Urine Microscopic? YES
[2023-10-19 12:21] VITALS: BP 123/63; PULSE 93; RESP 16; O2SAT 100
[2023-10-19 13:41] VITALS: BP 121/62; PULSE 93; RESP 19; O2SAT 98
== END 2023-10-19 13:43 | disposition home or self-care (01) ==
PROVIDERS: Emergency Provider Nurse Practitioner Family; PCP Family Medicine Adolescent Medicine
DX: N39.0 Urinary tract infection, site not specified (principal); F32.A Depression, unspecified; E78.5 Hyperlipidemia, unspecified; I10 Essential (primary) hypertension; Z87.442 Personal history of urinary calculi
CPT/HCPCS: 36415; 74177; 80053; 81001; 83605; 85025; 87077; 87086; 87088; 87186; 96361; 96365; 99284; J0696; J7030; Q9967

== ENCOUNTER 2024-02-07 10:01 | Outpatient (CLI) | payer MEDICARE, BC, SELFPAY ==
--- NOTE | ~2024-02-07 | MM_ITS ---
EXAMINATION: MM screening марина BI w raphael HISTORY: Screening TECHNIQUE: Craniocaudal and mediolateral oblique 3-D tomosynthesis images were obtained and synthetic 2-D images were generated. CAD analysis was submitted and interpreted. COMPARISON: Comparison to multiple prior studies sequentially, with oldest reviewed study dated 09/2019. BREAST PARENCHYMAL COMPOSITION: Not dense: There are scattered areas of fibroglandular density. FINDINGS: There is no evidence of suspicious mass, calcification, or architectural distortion to sugg est malignancy in either breast. There has been no suspicious interval change. IMPRESSION: 1. No mammographic evidence of malignancy. 2. Recommend routine screening mammography in one year. BI-RADS Category 1: Negative Reviewed, dictated and finalized at location B.
== END 2024-02-07 10:02 ==
LOC: MICIMG 10:03
PROVIDERS: PCP Family Medicine Adolescent Medicine; Visit Provider Nurse Practitioner
DX: Z12.31 Encounter for screening mammogram for malignant neoplasm of breast (principal)
CPT/HCPCS: 77063; 77067

== ENCOUNTER 2024-03-20 09:30 | Outpatient (RCR) | payer MEDICARE, BC, SELFPAY ==
--- NOTE | 2023-12-27 14:59 | OTOPEVAL1 ---
Assessment and note entered by Kody Ritter, BABAR/David, CHT Evaluation Information Assessment Status Evaluation Diagnosis MS Subjective Information Patient reporting a progression of her MS. She has been noticing a decline in her right UE strength, stating I can't move it anymore and it's getting tight . She reports the left UE moves better, but is getting weaker. She is noticing a decline in her ability to feed herself and complete grooming tasks. Her , Og, has been having to feed her and brush her hair. She notices as she fatigues throughout the day her strength abilities dwindle. Reported Pain Level Pain Score 0: Self Report Additional Pain Score Comments Patient reports the right arm is painful in the morning due to the elbow being in a prolonged bend all night. She is not strong enough to actively extend the elbow out of flexion. Assessment OT Clinical Summary Patient referred to OT with dx of MS. She presents today reporting a progression of her symptoms to the point of not being able to move her right UE and the left becoming so weak that feeding is becoming difficult. Skilled OT indicated for HEP instruction/progression, elbow extension splinting for night use, passive ROM, therapeutic exercise, and compensatory ADL techniques/adaptive equipment teaching PRN. Plan of Care Interventions Therapeutic Exercise,Manual Therapy,Therapeutic Activities OT Services Indicated Yes Treatment Frequency and 2x/week for 8 visits Duration These treatments will address the objective and functional deficits as defined above. The patient will be advanced safely and appropriately in order for the patient to progress towards his/her prior level of function. Additional exercises will be introduced and as well as a comprehensive home exercise program upon discharge, if needed, ?to ensure carryover of functional gains achieved in the clinic. This treatment plan has been reviewed and agreement upon by the patient.
--- NOTE | 2023-12-27 14:59 | OPREHPOC ---
Outpatient Therapy Plan of Care This is a Multidisciplinary Plan of Care that may contain components documented by all disciplines (PT, OT, and ST.) OT Problem 1 OT Problem #1 Knowledge Deficit OT Goal 1 Goal 1. Patient/spouse to be independent with HEP. Target Visit 8 OT Problem 2 OT Problem #2 Pain OT Goal 1 Goal 1. To decrease night time pain in the right arm, patient to be able to tolerate wearing right elbow extension splint all night without pain/issues. Target Visit 8 OT Problem 3 OT Problem #3 Impaired Strength OT Goal 1 Goal Patient to increase left UE strength as demonstrated by: 1. Being able to keep the left elbow extended while flexing the shoulder overhead. 2. Being able to feed herself a meal with the left UE (with or without AE). 3. Being able to complete left elbow strengthening with a yellow t-band x10 reps. 4. Being able to complete left wrist strengthening with 1 lb. free weight x10 reps. Target Visit 8
--- NOTE | 2023-12-31 16:34 | PTOPEVDC ---
Assessment and note entered by Chelita Castaneda, PT Thank you for referring Lola Taylor to [facility].? An evaluation has been completed. No further treatment is needed. Evaluation Information Assessment Status Evaluation Diagnosis multiple sclerosis Subjective Information Pt states she has no mobility from waist down and very limited control of trunk muscles for along time now. Reports her has been picking her up for all functional transfers. She states she needs a new w/c evaluation to upgrade her power w/c but they already have another person who will be working on it. Reported Pain Level Pain Score 0: Self Report Assessment PT Clinical Summary Pt presents to therapy with chronic and severe MS affectation, utilizes power w/c for all mobility, patient's performs dependent transfers due to severity of weakness; patient and her received education on appropriate mechanical equipment they can use to improve transfers and importance of upgrading/updating power wheelchair to accommodate current needs. She reports there is ongoing process to address needs in a different facility or provider at this time. Plan of Care Interventions Patient/Caregiver Education,Therapeutic Exercise PT Services Indicated No
--- NOTE | 2023-12-31 16:36 | PTOPEVDC ---
Assessment and note entered by Chelita Castaneda, PT Thank you for referring Lola Taylor to [facility].? An evaluation has been completed. No further treatment is needed. Evaluation/Discharge Information Assessment Status Evaluation and Discharge Diagnosis multiple sclerosis Subjective Information Pt states she has no mobility from waist down and very limited control of trunk muscles for along time now. Reports her has been picking her up for all functional transfers. She states she needs a new w/c evaluation to upgrade her power w/c but they already have another person who will be working on it. Reported Pain Level Pain Score 0: Self Report Assessment PT Clinical Summary Pt presents to therapy with chronic and severe MS affectation, utilizes power w/c for all mobility, patient's performs dependent transfers due to severity of weakness; patient and SO received education on appropriate mechanical equipment they can use to improve transfers and importance of upgrading/updating power wheelchair to accommodate current needs. She reports there is ongoing process to address needs in a different facility or provider at this time. Plan of Care Interventions Patient/Caregiver Education,Therapeutic Exercise PT Services Indicated No
--- NOTE | 2024-01-24 10:23 | OTOPPROG ---
Assessment and note entered by Kody Ritter, BABAR/David, CHT OT Progress Update 01/24/24 Diagnosis MS Subjective Information Patient reporting she has been wearing her right elbow extension splint during the day, reporting it's been helpful to keep her arm from curling up to her chest. She reports her left arm is feeling stronger, having better coordination and strength to feed herself. States she is now able to put her face lotion on with the left hand. Assessment OT Clinical Summary Patient referred to OT with dx of MS. She has been working with OT x8 visits and is demonstrating improved right UE flexibility and left UE strength . Functionally she is having an easier time with self feeding and grooming tasks. She is having to rely on her less for feeding tasks and putting lotion on her face. Continued skilled OT indicated for HEP instruction/progression, elbow extension splinting adjustments as needed, ROM, therapeutic exercise, and compensatory ADL techniques/adaptive equipment teaching PRN. Plan of Care Interventions Therapeutic Exercise,Manual Therapy,Therapeutic Activities,Check Out for Orthotic/Pr OT Services Indicated Yes Treatment Frequency and 2x/week for 8 visits Duration These treatments will address the objective and functional deficits as defined above. The patient will be advanced safely and appropriately in order for the patient to progress towards his/her prior level of function. Additional exercises will be introduced and as well as a comprehensive home exercise program upon discharge, if needed, ?to ensure carryover of functional gains achieved in the clinic. This treatment plan has been reviewed and agreement upon by the patient.
--- NOTE | 2024-01-24 10:23 | OPREHPOC ---
Outpatient Therapy Plan of Care This is a Multidisciplinary Plan of Care that may contain components documented by all disciplines (PT, OT, and ST.) OT Problem 1 OT Problem #1 Knowledge Deficit OT Goal 1 Goal 1. Patient/spouse to be independent with HEP. ---OT POC UPDATE 01/24/24--- 1. Met, continue as HEP is progressed Target Visit 16 OT Problem 2 OT Problem #2 Pain OT Goal 1 Goal 1. To decrease night time pain in the right arm, patient to be able to tolerate wearing right elbow extension splint all night without pain/issues. ---OT POC UPDATE 01/24/24--- 1. Patient doesn't like to wear at night due to being unable to doff independently. Likes to wear during the day when in her w/c, keeps arm out to the side; Modify goal: Patient to increase passive elbow extension on the right from -30 degrees to -20 degrees. Target Visit 16 OT Problem 3 OT Problem #3 Impaired Strength OT Goal 1 Goal Patient to increase left UE strength as demonstrated by: 1. Being able to keep the left elbow extended while flexing the shoulder overhead. 2. Being able to feed herself a meal with the left UE (with or without AE). 3. Being able to complete left elbow strengthening with a yellow t-band x10 reps. 4. Being able to complete left wrist strengthening with 1 lb. free weight x10 reps. ---OT POC UPDATE 01/24/24--- 1. Progressing, continue 2. Met, patient's abilities fluctuate depending on time of day, continue goal 3. Met, upgrade to red 4. Met, upgrade to 2 lbs. Target Visit 16
--- NOTE | 2024-02-21 08:59 | OTOPPROG ---
Assessment and note entered by Kody Ritter, BABAR/David, CHT OT Progress Update 02/21/24 Diagnosis MS Subjective Information Patient reports the right elbow is feeling more flexible, still wearing her elbow extension splint during the day. She reports her left arm is getting stronger, having an easier time feeding herself and her is helping less. States she is having an easier time putting on her face lotion on with the left hand. Assessment OT Clinical Summary Patient referred to OT with dx of MS. She has been working with OT x16 visits and is demonstrating improved right UE flexibility and left UE strength . Functionally she is having an easier time with self feeding and grooming tasks. She is having to rely on her less for feeding tasks and grooming tasks. She is experiencing less pain and discomfort with the UE stretches and her improved flexibility is easing caregiver assist with ADLs. Continued skilled OT indicated for HEP instruction /progression, elbow extension splinting adjustments as needed, ROM, therapeutic exercise, and compensatory ADL techniques/adaptive equipment teaching PRN. Plan of Care Interventions Therapeutic Exercise,Manual Therapy,Therapeutic Activities,Check Out for Orthotic/Pr OT Services Indicated Yes Treatment Frequency and 2x/week for 8 visits Duration These treatments will address the objective and functional deficits as defined above. The patient will be advanced safely and appropriately in order for the patient to progress towards his/her prior level of function. Additional exercises will be introduced and as well as a comprehensive home exercise program upon discharge, if needed, ?to ensure carryover of functional gains achieved in the clinic. This treatment plan has been reviewed and agreement upon by the patient.
--- NOTE | 2024-02-21 08:59 | OPREHPOC ---
Outpatient Therapy Plan of Care This is a Multidisciplinary Plan of Care that may contain components documented by all disciplines (PT, OT, and ST.) OT Problem 1 OT Problem #1 Knowledge Deficit OT Goal 1 Goal / Goal Update 1. Patient/spouse to be independent with HEP. ---OT POC UPDATE 01/24/24--- 1. Met, continue as HEP is progressed ---OT POC UPDATE 02/21/24--- 1. Met, continue as HEP is progressed Target Visit 24 OT Problem 2 OT Problem #2 Pain OT Goal 1 Goal / Goal Update 1. To decrease night time pain in the right arm, patient to be able to tolerate wearing right elbow extension splint all night without pain/issues. ---OT POC UPDATE 01/24/24--- 1. Patient doesn't like to wear at night due to being unable to doff independently. Likes to wear during the day when in her w/c, keeps arm out to the side; Modify goal: Patient to increase passive elbow extension on the right from -30 degrees to -20 degrees. ---OT POC UPDATE 02/21/24--- 1. Met, progress to 15 degrees Target Visit 24 OT Problem 3 OT Problem #3 Impaired Strength OT Goal 1 Goal / Goal Update Patient to increase left UE strength as demonstrated by: 1. Being able to keep the left elbow extended while flexing the shoulder overhead. 2. Being able to feed herself a meal with the left UE (with or without AE). 3. Being able to complete left elbow strengthening with a yellow t-band x10 reps. 4. Being able to complete left wrist strengthening with 1 lb. free weight x10 reps. ---OT POC UPDATE 01/24/24--- 1. Progressing, continue 2. Met, patient's abilities fluctuate depending on time of day, continue goal 3. Met, upgrade to red 4. Met, upgrade to 2 lbs. ---OT POC UPDATE 02/21/24--- 1. Met - Upgrade: Patient to increase left triceps strength to 4+/5 2. Met, patient's abilities fluctuate depending on time of day, continue goal 3. Progressing, continue 4. Met
--- NOTE | 2024-03-09 10:46 | PCOTNOTE ---
Patient did not show up for scheduled appointment this date. Pt. called 03/09/24, pt. answered and confirmed missing appointment, pt. believing appointment scheduled for 03/10/24. Pt. reminded and confirmed next appointment 03/13/24.
--- NOTE | 2024-03-24 08:35 | PCOTNOTE ---
This treatment is being continued on visit number [id number]. Please see documentation on both accounts to view progress. Completed interventions, outcomes, and problems have been marked as Inactive to facilitate the copying of the Care plan routine for recurring accounts.
== END 2024-03-22 08:32 | disposition home or self-care (01) ==
LOC: ANHOT 09:30
PROVIDERS: PCP Family Medicine Adolescent Medicine
DX: G35 Multiple sclerosis (principal)
CPT/HCPCS: 97110; 97140; 97161; 97166; 97530; L3702

== ENCOUNTER 2024-05-04 08:15 | Outpatient (RCR) | payer MEDICARE, BC, SELFPAY ==
--- NOTE | 2024-03-24 08:36 | PCOTNOTE ---
The treatment documented on this account is a continuation of the treatment documented on visit number [id number]. Please see documentation on both accounts to view progress. The Plan of Care has been transitioned and updated within the new V#. I have addressed and agree with the discipline specific Problems, Interventions, and Goals for the current certification period. Completed interventions, outcomes, and problems have been marked as Inactive to facilitate the copying of the Care plan routine for recurring accounts.
--- NOTE | 2024-03-28 10:29 | OTOPPROG ---
Assessment and note entered by Kody Ritter, BABAR/David, CHT OT Progress Update 03/28/24 Assessment Status Progress Diagnosis MS Subjective Information Patient reports progress in the last month. She reports feeling more flexible on the right and stronger on the left upper extremity. She reports she received Botox last week and her neck and upper arm on the right and these muscles are feeling more flexible allowing for better cervical ROM. She reports improvements in the left UE strength and function to be able to reach her face with improved strength and coordination. She is feeding herself more of a meal. Assessment OT Clinical Summary Patient referred to OT with dx of MS. She has been working with OT x24 visits and is demonstrating improved right UE flexibility and left UE strength . Functionally she is having an easier time with self feeding and grooming tasks. She is having to rely on her less for feeding tasks and grooming tasks. She is experiencing less pain and discomfort with the UE stretches and her improved flexibility is easing caregiver assist with ADLs. Continued skilled OT indicated for HEP instruction /progression, elbow extension splinting adjustments as needed, ROM, therapeutic exercise, and compensatory ADL techniques/adaptive equipment teaching PRN. Plan of Care Interventions Therapeutic Exercise,Check Out for Orthotic/Pr, Manual Therapy,Therapeutic Activities OT Services Indicated Yes Treatment Frequency and 2x/week for 8 visits Duration These treatments will address the objective and functional deficits as defined above. The patient will be advanced safely and appropriately in order for the patient to progress towards his/her prior level of function. Additional exercises will be introduced and as well as a comprehensive home exercise program upon discharge, if needed, ?to ensure carryover of functional gains achieved in the clinic. This treatment plan has been reviewed and agreement upon by the patient.
--- NOTE | 2024-03-28 10:31 | OPREHPOC ---
Outpatient Therapy Plan of Care This is a Multidisciplinary Plan of Care that may contain components documented by all disciplines (PT, OT, and ST.) OT Problem 1 OT Problem #1 Knowledge Deficit OT Goal 1 Goal / Goal Update 1. Patient/spouse to be independent with HEP. ---OT POC UPDATE 01/24/24--- 1. Met, continue as HEP is progressed ---OT POC UPDATE 02/21/24--- 1. Met, continue as HEP is progressed Target Visit 24 OT Problem 2 OT Problem #2 Pain OT Goal 1 Goal / Goal Update 1. To decrease night time pain in the right arm, patient to be able to tolerate wearing right elbow extension splint all night without pain/issues. ---OT POC UPDATE 01/24/24--- 1. Patient doesn't like to wear at night due to being unable to doff independently. Likes to wear during the day when in her w/c, keeps arm out to the side; Modify goal: Patient to increase passive elbow extension on the right from -30 degrees to -20 degrees. ---OT POC UPDATE 02/21/24--- 1. Met, progress to 15 degrees Target Visit 24 OT Problem 3 OT Problem #3 Impaired Strength OT Goal 1 Goal / Goal Update Patient to increase left UE strength as demonstrated by: 1. Being able to keep the left elbow extended while flexing the shoulder overhead. 2. Being able to feed herself a meal with the left UE (with or without AE). 3. Being able to complete left elbow strengthening with a yellow t-band x10 reps. 4. Being able to complete left wrist strengthening with 1 lb. free weight x10 reps. ---OT POC UPDATE 01/24/24--- 1. Progressing, continue 2. Met, patient's abilities fluctuate depending on time of day, continue goal 3. Met, upgrade to red 4. Met, upgrade to 2 lbs. ---OT POC UPDATE 02/21/24--- 1. Met - Upgrade: Patient to increase left triceps strength to 4+/5 2. Met, patient's abilities fluctuate depending on time of day, continue goal 3. Progressing, continue 4. Met Target Visit 24 OT Problem 4 OT Problem #4 Impaired Flexibility OT Goal 1 Goal / Goal Update New Goal 9/24/24: 1. To improve upper trap flexibility, patient to be able to improve cervical side flexion to the left from 5 to 15 degrees.
--- NOTE | 2024-05-04 09:16 | OTOPDC ---
Assessment and note entered by Kody Ritter, OTR/David, IRMA OT D/C SUMMARY 05/04/24 Assessment Status Discharge Diagnosis MS Subjective Information Patient reports feeling about the same as she did a month ago, regarding strength and flexibility. She reports increased tension and pain in her upper traps, reporting they feel very tight and tense. She states she has relief from therapy soft tissue mobilization, but this is temporary. She reports her ability to use her left hand for grooming and feeding have made good progress since the start of care, however she has felt about the same in the last month. Reported Pain Level Pain Score 5: Self Report Additional Pain Score Comments Patient reporting 5/10 upper trap pain. Assessment OT Clinical Summary Patient referred to OT with dx of MS. She has been working with OT x32 visits focused on improving functional flexibility and strength to promote improved independence with self care tasks, reduce contractures, and improve comfort/positioning. This past month she has been having increased pain in the upper traps. Palpation of the upper traps reveals several painful trigger point areas. Therapy has been working on soft tissue mobilization and cervical ROM to help reduce the pain, tension, and tightness. Unfortunately she appears to have reached a plateau with OT. We discussed the possibility of getting a PT order for dry needling treatment for her trigger points. At this this we are discharging with HEP. Plan of Care OT Services Indicated No
== END 2024-05-04 11:06 | disposition home or self-care (01) ==
LOC: ANHOT 08:15
PROVIDERS: PCP Family Medicine Adolescent Medicine
DX: G35 Multiple sclerosis (principal)
CPT/HCPCS: 97110; 97140

== ENCOUNTER 2024-11-02 11:00 | Outpatient (RCR) | payer MEDICARE, BC, SELFPAY ==
[2024-10-02 14:01] VITALS: BP_SYST 150
--- NOTE | 2024-10-02 14:57 | OTOPEVAL1 ---
Assessment and note entered by BABAR Bliss/David, CHT OT Evaluation Information Diagnosis G35 Multiple Sclerosis Subjective Information Patient reports she received Botox injections about 2 weeks ago. She reports this has helped with her pain, but she continues to experience 6-7 /10 pain in the upper traps and neck area. She reports the left arm moves better than the right. She reports she uses her left hand for all functioning. She reports that as the day goes on her left arm gets more tired and is harder to use. She reports some difficulties pressing the buttons on her power w/c, fluctuating abilities with self feeding (on average she feeds herself 90 % of the time, helps 10% of the time), and reaching out to the side for objects such as the tv remote. Reported Pain Level Pain Score 7: Self Report Assessment OT Clinical Summary Patient referred to OT with dx of MS. She presents with gross UE weakness, muscle tightness, and pain that limits functional use of her left ( functional) UE/hand. Skilled OT indicated to maximize function, improve strength, improve soft tissue extensibility, and reduced pain. Plan of Care Interventions Therapeutic Exercise,Manual Therapy,Therapeutic Activities,Check Out for Orthotic/Prosthetic OT Services Indicated Yes Treatment Frequency and 2x/week for 10 visits Duration These treatments will address the objective and functional deficits as defined above. The patient will be advanced safely and appropriately in order for the patient to progress towards his/her prior level of function. Additional exercises will be introduced and as well as a comprehensive home exercise program upon discharge, if needed, ?to ensure carryover of functional gains achieved in the clinic. This treatment plan has been reviewed and agreement upon by the patient.
--- NOTE | 2024-10-02 14:58 | OPREHPOC ---
Outpatient Therapy Plan of Care This is a Multidisciplinary Plan of Care that may contain components documented by all disciplines (PT, OT, and ST.) OT Problem 1 OT Problem #1 Knowledge Deficit OT Goal 1 Goal / Goal Update Patient/spouse to be independent with instructed materials. Target Visit 10 OT Problem 2 OT Problem #2 Pain OT Goal 1 Goal / Goal Update Patient to report reduced upper neck/trap pain to 2/10 or less at rest. Target Visit 10 OT Problem 3 OT Problem #3 Impaired Range of Motion OT Goal 1 Goal / Goal Update Increase flexibility of the (R) UE to reduce caregiver burden when helping dress and bathe: - shoulder flexion to 130 degrees - shoulder abduction to 130 degrees - shoulder ER to 20 degrees - elbow extension to -20 degrees Target Visit 10 OT Problem 4 OT Problem #4 Impaired Strength OT Goal 1 Goal / Goal Update Improve left UE strength for improved functional use during ADLs: - shoulder flexion and abduction to 4-/5 - elbow flexion to 4+/5 - elbow extension to 4/5 - wrist flexion and extension to 3+/5 - finger extension to 4/5 Target Visit 10
[2024-11-02 11:12] VITALS: BP_SYST 150
--- NOTE | 2024-11-02 11:58 | OTOPDC ---
Assessment and note entered by Kody Ritter, OTJair/L, CHT OT D/C Summary 11/02/24 Diagnosis G35 Multiple Sclerosis Subjective Information Patient reports not noticing much progress with therapy this past month. She reports her upper traps/neck area continues to be painful. 5/10 in the mornings, increasing up to 8/10 in the evenings. She reports functionally that she feels about the same in her ability to use her left hand to control her power w/c, use the remote, and feeding herself. She reports that as the day goes on her left arm gets more tired and is harder to use. Reported Pain Level Pain Score 5: Self Report Assessment OT Clinical Summary Patient referred to OT with dx of MS. OT focused on proximal soft tissue work (upper traps) and cervical mobility to reduce tension, tightness, and pain. Limited progress noted with pain numbers and overall muscle tension. Due to weakness, patient over uses upper traps with UE. (R) UE passive ROM remained unchanged and is WFL for hygiene and dressing. (L) UE strength made some gains in the elbow, forearm, and wrist. The shoulder is more flexible. Overall she reports no functional changes during ADLs. No decline in her function either. At this time she is independent with all materials. Discussed seeking out regular massage therapy to help with the upper trap tension and pain. She verbalizes excellent understanding. D/C OT. Plan of Care OT Services Indicated No
--- NOTE | 2024-11-02 11:58 | OPREHPOC ---
Outpatient Therapy Plan of Care This is a Multidisciplinary Plan of Care that may contain components documented by all disciplines (PT, OT, and ST.) OT Problem 1 OT Problem #1 Knowledge Deficit OT Goal 1 Goal / Goal Update Patient/spouse to be independent with instructed materials. ---OT D/C 11/02/24--- Met Target Visit 10 OT Problem 2 OT Problem #2 Pain OT Goal 1 Goal / Goal Update Patient to report reduced upper neck/trap pain to 2/10 or less at rest. ---OT D/C 11/02/24--- Not met Target Visit 10 OT Problem 3 OT Problem #3 Impaired Range of Motion OT Goal 1 Goal / Goal Update Increase flexibility of the (R) UE to reduce caregiver burden when helping dress and bathe: - shoulder flexion to 130 degrees - shoulder abduction to 130 degrees - shoulder ER to 20 degrees - elbow extension to -20 degrees ---OT D/C 11/02/24--- - not met - not met - not met - not met Target Visit 10 OT Problem 4 OT Problem #4 Impaired Strength OT Goal 1 Goal / Goal Update Improve left UE strength for improved functional use during ADLs: - shoulder flexion and abduction to 4-/5 - elbow flexion to 4+/5 - elbow extension to 4/5 - wrist flexion and extension to 3+/5 - finger extension to 4/5 ---OT D/C 11/02/24--- - Not met - Not met - Not met - Wrist met - Not met Target Visit 10
== END 2024-11-02 14:04 | disposition home or self-care (01) ==
LOC: ANHOT 11:00
PROVIDERS: PCP Family Medicine Adolescent Medicine; Visit Provider Physical Medicine & Rehabilitation
DX: G35 Multiple sclerosis (principal)
CPT/HCPCS: 97110; 97140; 97165

== ENCOUNTER 2025-01-19 05:55 | Emergency (ER) | payer MEDICARE, BC, SELFPAY ==
--- NOTE | ~2025-01-19 | XR_ITS ---
XR wrist RT 2V, XR forearm RT 2V 01/19/2025 06:58 Indication: Right arm pain after fall Procedure: 2 views right wrist and 2 views right forearm Comparison: No prior studies for comparison. Findings: Osteopenia. No fracture, subluxation or dislocation no focal soft tissue abnormality. No fo reign bodies. There is mild polyarticular osteoarthritis. Impression: 1: No acute fracture. Reviewed, dictated and finalized at location B. Impression: 1: No acute fracture. Impression: 1: No acute fracture.
--- NOTE | ~2025-01-19 | XR_ITS ---
XR shoulder RT min 2V, XR humerus RT 01/19/2025 06:58 Indication: Right arm pain after fall Procedure: 2 views right humerus and 3 views right shoulder Comparison: No prior studies for comparison. Findings: There is a nondisplaced right humeral neck fracture. Acromioclavicular joint intact. No sig nificant soft tissue abnormality. Impression: 1: Nondisplaced right humeral neck fracture. Reviewed, dictated and finalized at location B. Impression: 1: Nondisplaced right humeral neck fracture. Impression: 1: Nondisplaced right humeral neck fracture.
--- OUTSIDE RECORDS SUMMARY | 2025-01-19 05:57 | XMS_ITS | Encounter Summary ---
[facility] Address [address] [place] [address] Care Team Providers Care Floor Winder Name Role Phone Chuck Looney MD Primary Care Provider [phone]- [phone] Encounter Details Date Type Department Care Team (Late st Contact Info) Description 11/14/2001 Outpatient Historical Division of Neurology 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
--- OUTSIDE RECORDS SUMMARY | 2025-01-19 05:57 | XMS_ITS | Referral Summary ---
Author Organization [facility] B Address [address] [place] [address] Care Team Providers Care Dispatcher Maintenance Name Role Phone Chuck Looney MD Primary Care Prov ider Encounters Date Type Department Care Team Description 01/18/2025 Orders Only [facility] [address] [place] [phone] Jaiden Hall MD 01/15/2025 Telephone [facility] [address] [place] [address] [address], [place] [address] Rachell Martinez RN 01/09/2025 Telephone [facility] [address] [place] [phone] Kevin Bradford Re-Start (No Prior Auth Required) 01/08/2025 Orders Only [facility] [address] [place] [phone] Jaiden Hall MD Multiple sclerosis (HCC) (Primary Dx); High risk medication use 01/04/2025 11:20 AM CDT Lab [address] [address] Screening for viral disease; Multiple sclerosis (HCC); Vitamin D deficiency 01/04/2025 10:00 AM CDT Office Visit [facility] in [facility] [address] [phone] Jaiden Hall MD Multiple sclerosis (HCC) (Primary Dx); Screening for viral disease; Vitamin D deficiency from Last 3 Months Allergies Active Allergy Reactions Criticality Noted Date Comments Codeine Nausea And Vomiting Low 04/20/2013 Sulfa (Sulfonamide Antibiotics) Nausea And Vomiting Low 04/20/2013 Medications cholecalcifer ol (VITAMIN D-3) 1,000 unit capsule Take 1 capsule (1,000 Units total) by mouth daily Active oxybutynin XL (DITROPAN-XL) 10 mg 24 hr tablet 2 tablets (20 mg total) daily 09/20/19 14 Active onabotulinumt oxinA (BOTOX INJ)Indicatio ns:Muscle Spasm Inject as directed Active multivitamin tabletIndicat ions:Vitamin Deficiency Prevention Take 1 tablet by mouth Active ocrelizumab (OCREVUS IV) Infuse into a venous catheter Active lisinopriL (PRINIVIL,ZES TRIL) 20 mg tablet Take 1 tablet (20 mg total) by mouth daily 06/15/20 22 Active pravastatin (PRAVACHOL) 20 mg tablet Take 1 tablet (20 mg total) by mouth daily 06/15/20 22 Active Luer Lock Syringe 60 mL syringe FOR USE TO instill 30cc gentamicin/nacl mix into BLADDER AT nightime, allow TO sit overnight catherterize TO REMOVE in THE morning 09/30/19 24 Active sodium chloride 0.9% 0.9 % irrigation mix 12ml of gentamicin in 1000ml of normal SALINE THEN instill 30 mls of solution into BLADDER ONCE daily AT nighttime, allow TO sit overnight catherterize TO REMOVE in THE morning 09/30/19 24 Active polyethylene glycol (MIRALAX) 17 gram/dose bulk powder Take by mouth as needed Active venlafaxine XR (EFFEXOR-XR) 150 mg 24 hr capsule Take 1 capsule by mouth once daily 90 capsule 10/27/19 25 Active gabapentin (NEURONTIN) 100 mg capsule TAKE 3-4 CAPSULES BY MOUTH TWICE DAILY WITH SUPPER AND AT BEDTIME 720 capsule 1 01/05/20 25 Active tiZANidine (ZANAFLEX) 4 mg tablet TAKE 2 TABLETS BY MOUTH NIGHTLY 180 tablet 3 01/16/20 25 Active Hypodermic [place] 18 gauge x 1 1/2 needle FOR USE with 60ml syringes TO draw 09/30/19 24 025 Discontinued(T herapy completed) gabapentin (NEURONTIN) 100 mg capsule TAKE 2 CAPSULES BY MOUTH TWICE DAILY WITH SUPPER AND AT BEDTIME 360 capsule 1 08/01/19 25 025 Discontinued tiZANidine (ZANAFLEX) 4 mg tablet TAKE 2 TABLETS BY MOUTH NIGHTLY 180 tablet 10/28/19 25 025 Discontinued dalfampridine 10 mg tablet extended release 12 hr TAKE ONE TABLET BY MOUTH TWICE A DAY 180 tablet 11/25/19 25 025 Discontinued(T herapy completed) Active Problems Problem Noted Date Diagnosed Date 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 Betaseron: [id number] 2. Methotrexate: 1998 x 6 months 3. Copaxone: x 10 years 4. Gilenya: 1 year 5. Copaxone: 1298-3865 6. Ocrevus: 01/2018-07/15/2023 Per chart review patient was on MTX 7.5 mg weekly for 6 months in 1998. Assessment & Plan (01/04/2025 10:50 AM CDT): The patient is presenting for follow up of multiple sclerosis. She reports that since her last visit she has noticed progressive worsening of her left upper extremity strength and dexterity. She reports that she has profound weakness in her three other extremities and so this new weakness in his particularly concerning. She stopped Ocrevus last year due to concern about ongoing infections. She has recently transitioned to an assisted living facility with her was recently diagnosed with dementia. She experiences persistent tingling and burning in her hands and feet. She is on gabapentin 200 mg twice daily for treatment which she does not notice a clear benefit from. She receives Botox injections in her bladder, right upper extremity, in bilateral lower extremities with good benefit. She also takes tizanidine 8 mg nightly and Ditropan 20 mg daily. We discussed ongoing management of her multiple sclerosis. We discussed the two main types of symptoms in multiple sclerosis, relapses progression. Based on the patient's report progressive weakness in her left upper extremity I suspect she is experiencing underlying progression. We discussed that our current disease modifying therapies F only modest benefit on this component of the disease. Ocrevus is one of the disease modifying therapies that has shown the best benefit on the progressive component of the illness. We discussed resuming Ocrevus for treatment of her progression understanding that there would be a risk for increased infection on the medication. The patient is agreeable to resuming Ocrevus. We will check blood work today to start the initiation process. I counseled the patient to trial herself on 3-4 tablets twice daily of the gabapentin to see if this improves the tingling and pain in her hands and feet. I recommended discontinuing the dalfampridine given its lack of benefit. We discussed long-term care plans if the patient's symptoms were to continue to progress in the patient's 's dementia went to worsened impairing his ability to care for her. Unfortunately, at their current long-term care facility they would be unable to stay if there care needs increased and would look to transfer to a detention at that time. The patient has daughter's who are involved and work to help them. Continue botox treatments for spasticity and bladder symptoms. 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 Gender Identity Female 01/06/2021 9:01 AM CDT Sexual Orientation Straight 01/06/2021 9: 01 AM CDT Last Filed Vital Signs Vital Sign Reading Time Taken Comments Blood Pressure 128/79 01/04/2025 10:12 AM CDT Pulse 102 01/04/2025 10:12 AM CDT Temperature 36.3 C (97.4 F) 01/04/2025 10:12 AM CDT Respiratory Rate 16 05/15/2024 2:01 PM SUPERVISOR FINISH [employer] Oxygen Saturation 98% 01/04/2025 10:12 AM CDT Inhaled Oxygen Concentration - - Weight 70.3 kg (155 lb) 01/04/2025 10:12 AM CDT Height 157.5 cm (5' 2) 01/04/2025 10:12 AM CDT Body Mass Index 28.35 01/04/2025 10:12 AM CDT Plan of Treatment Not on file Procedures Procedure Name Priority Date/Time Associated Diagnosis Comments EGFR Routine 01/04/2025 11:28 AM CDT Multiple sclerosis (HCC) DIFFERENTIAL AUTO Routine 01/04/2025 11: 28 AM CDT Multiple sclerosis (HCC) IMMUNOGLOBULIN PROFILE Routine 11:28 AM CDT Multiple sclerosis (HCC) VITAMIN D 25 HYDROXY Routine 01/04/2025 11:28 AM CDT Vitamin D deficiency IMMUNE COMPETENCE Routine 01/04/2025 11: 28 AM CDT Multiple sclerosis (HCC) CBC WITH AUTO DIFFERENTIAL Routine 01/04/2025 11:28 AM CDT Multiple sclerosis (HCC) COMPREHENSIVE METABOLIC PANEL Routine 01/04/2025 11:28 AM CDT Multiple sclerosis (HCC) HEPATITIS PANEL, ACUTE Routine 11:28 AM CDT Multiple sclerosis (HCC) VARICELLA ZOSTER ANTIBODY, IGG Routine 01/04/2025 11:28 AM CDT Multiple sclerosis (HCC) HEPATITIS B CORE ANTIBODY, TOTAL Routine 01/04/2025 11:28 AM CDT Screening for viral disease from Last 3 Months Results * (ABNORMAL) Immunoglobulin profile (01/04/2025 11:28 AM CDT) Immunoglobulin G 642(L) 700 - 1,600 mg/dL Immunoglobulin A 314 70 - 400 mg/dL [facility] Immunoglobulin M 64 40 - 230 mg/dL [facility] Blood 01/04/2025 11:2 8 AM CDT 01/04/2025 12:48 PM CDT Jaiden Hall MD LAB BLOOD ORDERABLES Final Result [facility] [address] [place], [place] [id number] * eGFR (01/04/2025 11:28 AM CDT) [facility] eGFR >90 >=60 mL/min/1. 73 m2 Comment: Interpretive Data Reference Interval Normal >/= 90 mL/min/1.73m2 Mildly decreased* 60 - 89 mL/min/1.73m2 Mildly to moderately decreased 45 - 59 mL/min/1.73m2 Moderately to severely decreased 30 - 44 mL/min/1.73m2 Severely decreased 15 - 29 mL/min/1.73m2 Kidney Failure < 15 mL/min/1.73m2 *Relative to young adult level Estimated glomerular filtration rate is determined by the 2020 CKD-EPI equation recommended by the National Kidney Foundation (A Unifying Approach to GFR Estimation: Recommendations of the NKF-ASK Task Force on Reassessing the Inclusion of Race in Diagnosing Kidney Disease, JASN 2020). The CKD-EPI equation should not be used for patients with unstable renal function and has not been validated in children and those over 70. Current interpretive data was last reviewed 2021. Blood 01/04/2025 11:2 8 AM CDT 01/04/2025 12:48 PM CDT Jaiden Hall MD LAB BLOOD ORDERABLES Final Result [facility] [address] [place] [place] [address] * Differential, auto (01/04/2025 11:28 AM CDT) Neutrophil abs 4.93 1.50 - 6.50 K/cumm Imm gran abs 0.01 0.00 - 0.10 K/cumm [facility] Lymphocyte abs 1.91 0.80 - 3.30 K/cumm [facility] Monocyte abs 0.64 0.20 - 0.80 K/cumm [facility] Eosinophil abs 0.19 0.00 - 0.50 K/cumm [facility] Basophil abs 0.06 0.00 - 0.10 K/cumm [facility] Neutrophil pct 63.6 % [facility] Comment: Interpretive Data Percent cell count reference ranges are not reported, since discordance with absolute values may lead to misinterpretation of CBC data. Current Interpretive Data was last revised on 2017. Imm gran pct 0.1 % [facility] Comment: Interpretive Data Percent cell count reference ranges are not reported, since discordance with absolute values may lead to misinterpretation of CBC data. Current Interpretive Data was last revised on 2017. Lymphocyte pct 24.7 % [facility] Comment: Interpretive Data Percent cell count reference ranges are not reported, since discordance with absolute values may lead to misinterpretation of CBC data. Current Interpretive Data was last revised on 2017. Monocyte pct 8.3 % [facility] Comment: Interpretive Data Percent cell count reference ranges are not reported, since discordance with absolute values may lead to misinterpretation of CBC data. Current Interpretive Data was last revised on 2017. Eosinophil pct 2.5 % [facility] Comment: Interpretive Data Percent cell count reference ranges are not reported, since discordance with absolute values may lead to misinterpretation of CBC data. Current Interpretive Data was last revised on 2017. Basophil pct 0.8 % [facility] Comment: Interpretive Data Percent cell count reference ranges are not reported, since discordance with absolute values may lead to misinterpretation of CBC data. Current Interpretive Data was last revised on 2017. Blood 01/04/2025 11:2 8 AM CDT 01/04/2025 12:48 PM CDT us Jaiden Hall MD LAB BLOOD ORDERABLES Final Result [facility] [address] [place] [address] * Immune competence (01/04/2025 11:28 AM CDT) CD3 pct 79 60 - 88 % Comment:Testing performed by : [facility], [address] [place]., [address] CD3 Absolute 1,369 661 - 1,963 cells/mcL [facility] Comment:Testing performed by : [facility], [address] [facility], [address] CD4 pct 58 31 - 64 % [facility] Comment:Testing performed by : [facility], [address] [place] [address], [address] CD4 Absolute 988 365 - 1,294 cells/mcL [facility] Comment:Testing performed by : [facility], [address] [facility], [address] CD8 pct 22 12 - 40 % [facility] Comment:Testing performed by : [facility], [address] [place]., [address] CD8 Absolute 367 187 - 781 cells/mcL [facility] Comment:Testing performed by : [facility], [address] [place] [address]., [address] CD19 pct 10 6 - 25 % [facility] Comment:Testing performed by : [facility], [address] [place] [address]., [address] CD19 Absolute 178 86 - 488 cells/mcL [facility] Comment:Testing performed by : [facility], [address] [place] [address], [id number] pct 11 5 - 25 % [facility] Comment:Testing performed by : [facility], [address] [facility], [place]., [address] [id number] Absolute 203 76 - 467 cells/mcL [facility] Comment:Testing performed by : [facility], [address] [place]., [address] CD4/CD8 ratio 2.6 [facility] Comment:Testing performed by : [facility], [address] [place]., [address] Blood 01/04/2025 11:2 8 AM CDT 01/04/2025 5:21 PM CDT Jaiden Hall MD LAB BLOOD ORDERABLES Final Result Performing Organization Address City/[facility] Co de Phone Number [facility] [address] [place] [address] * CBC with auto differential (01/04/2025 11:28 AM CDT) WBC 7.74 3.80 - 9.90 K/cumm Hgb 13.9 11.9 - 15.5 g/dL [facility] Hct 41.8 35.6 - 45.5 % [facility] Plt 305 150 - 400 K/cumm [facility] MPV 9.9 9.1 - 12.3 fL [facility] RBC 4.57 3.90 - 5.20 M/cumm [facility] MCV 91.5 81.3 - 96.4 fL [facility] MCH 30.4 27.1 - 33.3 pg [facility] MCHC 33.3 32.3 - 35.7 g/dL [facility] RDW CV 12.6 11.1 - 14.9 % [facility] RDW SD 41.7 35.7 - 48.1 fL [facility] NRBC abs 0.00 0.00 - 0.01 K/cumm [facility] Blood 01/04/2025 11:2 8 AM CDT 01/04/2025 12:48 PM CDT Jaiden Hall MD LAB BLOOD ORDERABLES Final Result Performing Organization Address City/State/[facility] de Phone Number [facility] [address] [place] [address] * Hepatitis panel, acute Blood (01/04/2025 11:28 AM CDT) Pathologist [facility] Hep A IgM Nonreactive Nonreactive Comment: Interpretive Data: If Hep A IgM Ab is reported as Equivocal, a new sample should be drawn in two weeks for testing. Current interpretive data was last revised on 19. Hep B core IgM Nonreactive Nonreactive [facility] Comment: Interpretive Data If HepB Core IgM Ab is reported as Equivocal, a new sample should be drawn in two weeks for testing. Current interpretive data was last revised on 19. Hep C Ab Nonreactive Nonreactive [facility] Comment: Interpretive Data Nonreactive: Antibodies to HCV not detected. Does NOT exclude the possibility of recent exposure to HCV. Equivocal: Equivocal for HCV antibodies. Supplemental molecular testing will be automatically performed to determine infection status in accordance with current CDC screening recommendations. Reactive: Positive for HCV antibodies. This may represent current or past HCV infection. Supplemental molecular testing will be automatically performed to determine current infection status in accordance with current CDC screening recommendations. Interpretive data was last revised on 2019. HepBsAg Nonreactive Nonreactive [facility] Blood 01/04/2025 11:2 8 AM CDT 01/04/2025 12:47 PM CDT Jaiden Hall MD LAB MICROBIOLOGY - [facility] ORDERABLES Final Result Performing Organization Address [facility] Co de Phone Number [facility] [address] Department [place] [address] * Hepatitis B core antibody, total Blood (01/04/2025 11:28 AM CDT) Pathologist [facility] Hep B core IgG/IgM Nonreactive Nonreactive Comment:Testing performed by : [facility], [address] [facility]., [address] Blood 01/04/2025 11:2 8 AM CDT 01/04/2025 5:20 PM CDT Jaiden Hall MD LAB MICROBIOLOGY - GE NERAL ORDERABLES Final Result Performing Organization Address City/[facility]/ZIP Co de Phone Number [facility] [address] [place] [address] * Vitamin D 25 hydroxy (01/04/2025 11:28 AM CDT) [facility] Vitamin D 25-OH 56 30 - 80 ng/mL Blood 01/04/2025 11:2 8 AM CDT 01/04/2025 12:48 PM CDT Jaiden Hall MD LAB BLOOD ORDERABLES Final Result Performing Organization Address [facility] de Phone Number [facility] [address] [place] [address] * Varicella Zoster IgG antibody Blood (01/04/2025 11:28 AM CDT) [facility] VZV IgG Reactive Reactive Comment: Reactive: Results suggest response to immunization or prior exposure to the virus. Testing performed by: [facility], [address] [place]., [address] Blood 01/04/2025 11:2 8 AM CDT 01/04/2025 5:20 PM CDT Jaiden Hall MD LAB MICROBIOLOGY - GE NERAL ORDERABLES Final Result Performing Organization Address [facility] Co de Phone Number [facility] [address] [place] [address] * (ABNORMAL) Comprehensive metabolic panel (01/04/2025 11:28 AM CDT) [facility] Sodium 141 135 - 145 mmol/L Potassium, pl 4.2 3.3 - 4.9 mmol/L [facility] Chloride 102 97 - 110 mmol/L [facility] CO2 26 22 - 32 mmol/L [facility] Anion gap 13 2 - 15 mmol/L [facility] BUN 13 6 - 25 mg/dL [facility] Creatinine 0.44(L) 0.60 - 1.10 mg/dL [facility] Glucose 95 70 - 199 mg/dL [facility] Comment: Interpretive Data Fasting glucose >/= 126 mg/dl is diagnostic for diabetes. Fasting is defined as no caloric intake for at least 8 hours. Fasting glucose between 100 mg/dl to 125 mg/dl is diagnostic of prediabetes. In a patient with classic symptoms of hyperglycemia or hyperglycemic crisis, a random glucose >/= 200 mg/dl is diagnostic for diabetes. In the absence of unequivocal hyperglycemia, results should be confirmed by repeat testing. The classification and Diagnosis of Diabetes Diabetes Care 202; 46: S19-S40. Current interpretive data was last revised 2022. Calcium 9.6 8.5 - 10.3 mg/dL [facility] Bilirubin, total 0.3 0.1 - 1.2 mg/dL [facility] Protein, pl 7.0 6.5 - 8.5 g/dL [facility] Albumin 4.4 3.5 - 5.0 g/dL [facility] Alk phos 104 40 - 130 Units/L [facility] ALT 29 7 - 45 Units/L [facility] AST 28 10 - 45 Units/L [facility] Blood 01/04/2025 11:2 8 AM CDT 01/04/2025 12:48 PM CDT Jaiden Hall MD LAB BLOOD ORDERABLES Final Result [facility] [address] Department of Laboratories [place], [place] [id number] from Last 3 Months Insurance MEDICARE [facility] MEDICARE [facility] MEDICARE [facility] [employer] Care Teams Dispatcher Maintenance Relationship Specialty Start Date End Date Chuck Looney MD [address] [place] [address] PCP - General 03/11/17
--- OUTSIDE RECORDS SUMMARY | 2025-01-19 05:57 | XMS_ITS | Encounter Summary ---
Author Organization [facility] Address [address] 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
--- OUTSIDE RECORDS SUMMARY | 2025-01-19 05:57 | XMS_ITS | Encounter Summary ---
Author Organization [facility] Address [address] [place] [address] Care Team Providers Care Plastic Printer Name Role Phone Chuck Looney MD Primary Care Provider [phone]- [phone] Encounter Details Date Type Department Care Team (Latest Contact Info) Description 10/28/1998 Outpatient Historical [facility] Willard Gillespie MD [address] [facility] [address] [place] [address] Multiple sclerosis (CMS/HCC) (Primary Dx) Social History Tobacco Use Types Packs/Day Years Used Date Smoking Tobacco: Never Assessed Comments Unknown Sex and Gender Information Value Date Recorded Sex Assigned at Not on file 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
--- OUTSIDE RECORDS SUMMARY | 2025-01-19 05:57 | XMS_ITS | Encounter Summary ---
Author Organization [facility] Address [address] [place] [address] Care Team Providers Care Manuscript Editor Name Role Phone Chuck Looney MD Primary Care Provider +1- [phone] Encounter Details Date Type Department Care Team (Late st Contact Info) Description 08/21/2004 Outpatient Historical Division of Neurology 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
--- OUTSIDE RECORDS SUMMARY | 2025-01-19 05:57 | XMS_ITS | Encounter Summary ---
Author Organization [facility] Address [address] [place] [address] Care Team Providers Care Executive Vice President And Chief Operating Officer Name Role Phone Chuck Looney MD Primary Care Provider +1- [phone] Encounter Details Date Type Department Care Team (Latest Contact Info) Description 08/05/1998 Outpatient Historical HIS [facility] Willard Gillespie MD [address] [facility] [address] [place] [address] Multiple sclerosis (CMS/HCC) (Primary Dx) Social History Tobacco Use Types Packs/Day Years Used Date Smoking Tobacco: Never Assessed Comments Unknown Sex and Gender Information Value Date Recorded Sex Assigned at Not on file 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
--- OUTSIDE RECORDS SUMMARY | 2025-01-19 05:57 | XMS_ITS | Encounter Summary ---
Author Organization [facility] Address [address] [place] [address] Care Team Providers Care Seafood Team Member Name Role Phone Chuck Looney MD Primary Care Provider +1- [phone] Encounter Details Date Type Department Care Team (Latest Contact Info) Description 07/01/1998 Outpatient Historical HIS [facility] Willard Gillespie MD [address] [facility] [address] [place] [address] Multiple sclerosis (CMS/HCC) (Primary Dx) Social History Tobacco Use Types Packs/Day Years Used Date Smoking Tobacco: Never Assessed Comments Unknown Sex and Gender Information Value Date Recorded Sex Assigned at Not on file 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
--- OUTSIDE RECORDS SUMMARY | 2025-01-19 05:57 | XMS_ITS | Encounter Summary ---
Author Organization [facility] Address [address] [place] [address] Care Team Providers Care Ug Designer Name Role Phone Chuck Looney MD Primary Care Provider +1- [phone] Encounter Details Date Type Department Care Team (Late st Contact Info) Description 01/11/2003 Outpatient Historical Division of Neurology 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
--- OUTSIDE RECORDS SUMMARY | 2025-01-19 05:57 | XMS_ITS | Encounter Summary ---
Author Organization [facility] Address [address] [place] [address] Care Team Providers Care Stenocaptioner Name Role Phone Chuck Looney MD Primary Care Provider +1- [phone] Encounter Details Date Type Department Care Team (Late st Contact Info) Description 07/21/1999 Outpatient Historical Division of Neurology 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
--- OUTSIDE RECORDS SUMMARY | 2025-01-19 05:57 | XMS_ITS | Encounter Summary ---
Author Organization [facility] Address [address] [place] [address] Care Team Providers Care Equalizing Saw Operator Name Role Phone Chuck Looney MD Primary Care Provider +1- [phone] Encounter Details Date Type Department Care Team (Late st Contact Info) Description 10/25/2003 Outpatient Historical HIS [facility] Willard Villegas MD [address] [facility] [address] [place] [address] MULTIPLE SCLEROSIS (CMS/HCC) (Primary Dx) Social History Tobacco Use Types Packs/Day Years Used Date Smoking Tobacco: Never Assessed Comments Unknown Sex and Gender Information Value Date Recorded Sex Assigned at Not on file Legal Sex Female 2:59 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
--- OUTSIDE RECORDS SUMMARY | 2025-01-19 05:57 | XMS_ITS | Encounter Summary ---
Author Organization [facility] Address [address] [place] [address] Phone Care Team Providers Care Department Sales Manager Name Role Phone Chuck Looney MD Primary Care Prov ider Encounter Details Date Type Department Care Team (Late st Contact Info) Description 06/20/2013 Orders Only [facility] Jimmie Perry MD [address] [id number] Social History Tobacco Use Types Packs/Day Years Used Date Smoking Tobacco: Never Comments Unknown Sex and Gender Information Value Date Recorded Sex Assigned at Not on file Legal Sex Female 10:33 AM BAG SEWER Gender Identity Female 01/06/2021 9:01 AM CDT Sexual Orientation Straight 01/06/2021 9: 01 AM CDT documented as of this encounter Plan of Treatment Not on file documented as of this encounter Procedures Procedure Name Priority Date/Time Associated Diagnosis Comments PROCEDURE REPORT 06/20/2013 documented in this encounter Results * PROCEDURE REPORT (06/20/2013) us Jimmie Perry MD NURSING COMMUNICATION Nora avila Result documented in this encounter Visit Diagnoses Not on filedocumented in this encounter Care Teams Department Sales Manager Relationship Specialty Start Date End Date Chuck Looney MD [address] [place] [address] PCP - General 03/11/17 documented as of this encounter
--- OUTSIDE RECORDS SUMMARY | 2025-01-19 05:57 | XMS_ITS | Encounter Summary ---
Author Organization [facility] Address [address] [place] [address] Care Team Providers Care E Marketing Specialist Name Role Phone Chuck Looney MD Primary Care Provider +1- [phone] Encounter Details Date Type Department Care Team (Late st Contact Info) Description 05/12/2001 Outpatient Historical Division of Neurology [address] [address] Willard Villegas MD [address] [place] [address] Social History Tobacco Use Types Packs/Day Years Used Date Smoking Tobacco: Never Assessed Comments Unknown Sex and Gender Information Value Date Recorded Sex Assigned at Not on file Legal Sex Female 2:59 AM CHHA Gender Identity Not on file Sexual Orientation Not on file documented as of this encounter Plan of Treatment Not on file documented as of this encounter Visit Diagnoses Not on filedocumented in this encounter Care Teams E Marketing Specialist Relationship Specialty Start Date End Date Chuck Looney MD PCP - General 02/25/09 documented as of this encounter
--- OUTSIDE RECORDS SUMMARY | 2025-01-19 05:57 | XMS_ITS | Encounter Summary ---
Author Organization [facility] Address [address] [place] [address] Care Team Providers Care Livestock Laborer Name Role Phone Chuck Looney MD Primary Care Provider +1- [phone] Encounter Details Date Type Department Care Team (Late st Contact Info) Description 09/10/2005 Outpatient Historical Division of Neurology [address] [address] Willard Villegas MD [address] [place] [address] Social History Tobacco Use Types Packs/Day Years Used Date Smoking Tobacco: Never Assessed Comments Unknown Sex and Gender Information Value Date Recorded Sex Assigned at Not on file Legal Sex Female 2:59 AM CREATIVE SERVICES SPECIALIST Gender Identity Not on file Sexual Orientation Not on file documented as of this encounter Plan of Treatment Not on file documented as of this encounter Visit Diagnoses Not on filedocumented in this encounter Care Teams Livestock Laborer Relationship Specialty Start Date End Date Chuck Looney MD PCP - General 02/25/09 documented as of this encounter
--- OUTSIDE RECORDS SUMMARY | 2025-01-19 05:57 | XMS_ITS | Encounter Summary ---
Author Organization [facility] Address [address] [place] [address] Care Team Providers Care Sugar Coating Hand Name Role Phone Chuck Looney MD Primary Care Provider +1- [phone] Encounter Details Date Type Department Care Team (Latest Contact Info) Description 12/10/1998 Outpatient Historical HIS [facility] Willard Gillespie MD [address] [facility] [address] [place] [address] Multiple sclerosis (CMS/HCC) (Primary Dx) Social History Tobacco Use Types Packs/Day Years Used Date Smoking Tobacco: Never Assessed Comments Unknown Sex and Gender Information Value Date Recorded Sex Assigned at Not on file Legal Sex Female 2:59 AM RETAIL 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
--- OUTSIDE RECORDS SUMMARY | 2025-01-19 05:57 | XMS_ITS | Encounter Summary ---
Author Organization [facility] Address [address] [place] [address] Care Team Providers Care Research Environmental Scientist Name Role Phone Chuck Looney MD Primary Care Provider +1- [phone] Encounter Details Date Type Department Care Team (Latest Contact Info) Description 09/26/1998 Outpatient Historical HIS [facility] Willard Gillespie MD [address] [facility] [address] [place] [address] Multiple sclerosis (CMS/HCC) (Primary Dx) Social History Tobacco Use Types Packs/Day Years Used Date Smoking Tobacco: Never Assessed Comments Unknown Sex and Gender Information Value Date Recorded Sex Assigned at Not on file Legal Sex Female 2:59 AM SPECIAL AGENT [employer] Gender Identity Not on file Sexual Orientation Not on file documented as of this encounter Plan of Treatment Not on file documented as of this encounter Visit Diagnoses Diagnosis Multiple sclerosis (CMS/HCC)- Primary Multiple sclerosis documented in this encounter Care Teams Research Environmental Scientist Relationship Specialty Start Date End Date Chuck Looney MD PCP - General 02/25/09 documented as of this encounter
--- OUTSIDE RECORDS SUMMARY | 2025-01-19 05:57 | XMS_ITS | Encounter Summary ---
Author Organization [facility] Address [address] [place] [address] Care Team Providers Care Batter Scaler Name Role Phone Chuck Looney MD Primary Care Provider +1- [phone] Encounter Details Date Type Department Care Team (Late st Contact Info) Description 11/04/2000 Outpatient Historical Division of Neurology [address] [address] Willard Villegas MD [address] [place] [address] Social History Tobacco Use Types Packs/Day Years Used Date Smoking Tobacco: Never Assessed Comments Unknown Sex and Gender Information Value Date Recorded Sex Assigned at Not on file Legal Sex Female 2:59 AM APPLICATION INTEGRATION ENGINEER Gender Identity Not on file Sexual Orientation Not on file documented as of this encounter Plan of Treatment Not on file documented as of this encounter Visit Diagnoses Not on filedocumented in this encounter Care Teams Batter Scaler Relationship Specialty Start Date End Date Chuck Looney MD PCP - General 02/25/09 documented as of this encounter
--- OUTSIDE RECORDS SUMMARY | 2025-01-19 05:57 | XMS_ITS | Encounter Summary ---
Author Organization [facility] Address [address] [place] [address] Care Team Providers Care Immigration Inspector Name Role Phone Chuck Looney MD Primary Care Provider +1- [phone] Encounter Details Date Type Department Care Team (Late st Contact Info) Description 03/04/2000 Outpatient Historical Division of Neurology [address] [address] Willard Villegas MD [address] [place] [address] Social History Tobacco Use Types Packs/Day Years Used Date Smoking Tobacco: Never Assessed Comments Unknown Sex and Gender Information Value Date Recorded Sex Assigned at Not on file Legal Sex Female 2:59 AM RN ONCOLOGY Gender Identity Not on file Sexual Orientation Not on file documented as of this encounter Plan of Treatment Not on file documented as of this encounter Visit Diagnoses Not on filedocumented in this encounter Care Teams Immigration Inspector Relationship Specialty Start Date End Date Chuck Looney MD PCP - General 02/25/09 documented as of this encounter
--- OUTSIDE RECORDS SUMMARY | 2025-01-19 05:57 | XMS_ITS | Encounter Summary ---
Author Organization [facility] Address [address] [place] [address] Care Team Providers Care Steel Pourer Name Role Phone Chuck Looney MD Primary Care Provider +1- [phone] Encounter Details Date Type Department Care Team (Late st Contact Info) Description 03/23/2007 Outpatient Historical Division of Neurology 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
--- OUTSIDE RECORDS SUMMARY | 2025-01-19 05:57 | XMS_ITS | Clinical Summary ---
[facility] Organization [facility] Building B Address [address] [place] [address] Care Team Providers Care Clerk Television Production Name Role Phone Chuck Looney MD Primary Care Prov ider Allergies Active Allergy Reactions Criticality Noted Date [...] overnight catherterize TO REMOVE in THE morning 03/28/20 24 Active sodium chloride 0.9% 0.9 % irrigation mix 12ml of gentamicin in 1000ml of normal SALINE THEN instill 30 mls of solution into BLADDER ONCE daily AT nighttime, allow TO sit overnight catherterize TO REMOVE in THE morning 09/30/19 Active polyethylene glycol (MIRALAX) 17 gram/dose bulk [...] 180 tablet 3 01/16/20 25 Active Hypodermic Piercy 18 gauge x 1 1/2 needle FOR [...] bowel 12/04/2018 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 Betaseron: [id number] 2. Methotrexate: 1998 x 6 months 3. Copaxone: x 10 years 4. Gilenya: 1 year 5. Copaxone: 1041-7190 6. Ocrevus: 01/2018-07/15/2023 Per chart review patient [...] and would look to transfer to a [place] health care facility at that time. The patient has daughter's who are involved and work to help them. Continue botox treatments for spasticity and bladder symptoms. Encounters Date Type Department Care Team Description 01/18/2025 Orders Only [facility] [address] [place] [address] [address] [address] Jaiden Hall MD 01/15/2025 Telephone [facility] [address] [place] [address] [address] [address] Rachell Martinez RN 01/09/2025 Telephone [facility] in [address] [id number] Kevin Bradford Re-Start (No Prior Auth Required) 01/08/2025 Orders Only [facility] in [address] [address] Jaiden Hall MD Multiple sclerosis (HCC) (Primary Dx); High risk medication use 01/04/2025 11:20 AM CDT Lab [address] [place] [address] Screening for viral disease; Multiple sclerosis (HCC); Vitamin D deficiency 01/04/2025 10:00 AM CDT Office Visit [facility] in [address] [address] Jaiden Hall MD Multiple sclerosis (HCC) (Primary Dx); Screening for viral disease; Vitamin D deficiency from Last 3 Months Medical History Medical History Date Comments Multiple sclerosis (HCC) Multipl e sclerosis - diagnosed 1989 (Added by TW Conv) Personal history of other di seases of the circulatory system History of hypertension - (A dded by TW Conv) Personal history of other en docrine, nutritional and metabolic disease History of hyperlipi demia - (Added by TW Conv) Personal history of other me ntal and behavioral disorders History of depression - (Add ed by TW Conv) Age-related macular degeneration Macular degeneration of both eyes - (Added by TW Conv) Hypertension Cancer (HCC) Family History Medical History Relation Name Comments Glaucoma Maternal Grandmother Glaucom a - (Added by TW Conv) Relation Name Status Comments Maternal Grandmother Social History Tobacco Use Types Packs/Day Years Used Date Smoking Tobacco: Never Smokeless Tobacco: Never Tobacco Cessation:Counseling Given: Not Answered Alcohol Use Standard Drinks/Week Comments No 0 (1 standard drink = 0.6 oz pur e alcohol) Comments No Sex and Gender Information Value Date Recorded Sex Assigned at Not on file Legal Sex Female 10:33 AM FINANCIAL DEALERS Gender Identity Female 01/06/2021 9:01 AM CDT Sexual Orientation Straight 01/06/2021 9: 01 AM CDT Obstetrics History Last Filed Vital Signs Vital Sign Reading Time Taken Comments Blood Pressure 128/79 01/04/2025 10:12 AM CDT Pulse 102 01/04/2025 10:12 AM CDT Temperature 36.3 C (97.4 F) 01/04/2025 10:12 AM CDT Respiratory Rate 16 05/15/2024 2:01 PM FINANCIAL DEALERS Oxygen Saturation 98% 01/04/2025 10:12 AM CDT Inhaled Oxygen Concentration - - Weight 70.3 kg (155 lb) 01/04/2025 10:12 AM CDT Height 157.5 cm (5' 2) 01/04/2025 10:12 AM CDT Body Mass Index 28.35 01/04/2025 10:12 AM CDT Plan of Treatment Health Maintenance Due Date Last Done Comments Breast Cancer Screening-Mammogram 1956 Colon Cancer Screening-Colonoscopy 1956 Depression Screening 1956 Fall Risk Assessment 1956 Osteoporosis Screening-Bone Density Scan 1956 DTaP/Tdap/Td Vaccine (1 - Tdap) 1967 Hepatitis B Screening 1974 Pneumococcal vaccine 65+ (1 of 1 - PCV) 2006 Zoster Vaccine (1 of 2) 2006 Well Visit 65+ 2021 Covid-19 Vaccine ( - season) 2024 06/01/2021, 09/25/2020, 09/03/2020 Influenza Vaccine (#1) 2025 Hepatitis C Screening Completed 01/04/2025, 018 Procedures Procedure Name Priority Date/Time Associated Diagnosis [...] Immunoglobulin A 314 70 - 400 mg/dL [facility] Immunoglobulin M 64 40 - 230 mg/dL [facility] Blood 01/04/2025 11:2 8 AM CDT 01/04/2025 12:48 PM CDT us Jaiden Hall MD LAB BLOOD ORDERABLES Final Result [facility] [address] Department [place] [address] * eGFR (01/04/2025 11:28 AM CDT) Pathologist [facility] [place] [facility] eGFR >90 >=60 mL/min/1. 73 m2 Comment: [...] Hall MD LAB BLOOD ORDERABLES Final Result [facility] [address] Department [place] [address] * Differential, auto (01/04/2025 11:28 AM CDT) [facility] Neutrophil abs 4.93 1.50 - 6.50 K/cumm Imm gran abs 0.01 0.00 - 0.10 K/cumm [facility] Lymphocyte abs 1.91 0.80 - 3.30 K/cumm [facility] Monocyte abs 0.64 0.20 - 0.80 K/cumm [facility] Eosinophil abs 0.19 0.00 - 0.50 K/cumm [facility] Basophil abs 0.06 0.00 - 0.10 K/cumm [facility] Neutrophil pct 63.6 % [facility] Comment: Interpretive Data Percent cell count reference ranges are not reported, since discordance with absolute values may lead to misinterpretation of CBC data. Current Interpretive Data was last revised on 2017. Imm gran pct 0.1 % [facility] Comment: Interpretive Data Percent cell count reference ranges are not reported, since discordance with absolute values may lead to misinterpretation of CBC data. Current Interpretive Data was last revised on 2017. Lymphocyte pct 24.7 % [facility] Comment: Interpretive Data Percent cell count reference ranges are not reported, since discordance with absolute values may lead to misinterpretation of CBC data. Current Interpretive Data was last revised on 2017. Monocyte pct 8.3 % [facility] Comment: Interpretive Data Percent cell count reference ranges are not reported, since discordance with absolute values may lead to misinterpretation of CBC data. Current Interpretive Data was last revised on 2017. Eosinophil pct 2.5 % [facility] Comment: Interpretive Data Percent cell count reference ranges are not reported, since discordance with absolute values may lead to misinterpretation of CBC data. Current Interpretive Data was last revised on 2017. Basophil pct 0.8 % [facility] Comment: Interpretive Data Percent cell count reference ranges are not reported, since discordance with absolute values may lead to misinterpretation of CBC data. Current Interpretive Data was last revised on 2017. Blood 01/04/2025 11:2 8 AM CDT 01/04/2025 12:48 PM CDT Jaiden Hall MD LAB BLOOD ORDERABLES Final Result [facility] [address] Department [place] [address] * Immune competence (01/04/2025 11:28 AM CDT) CD3 pct 79 60 - 88 % Comment:Testing performed by : [facility], [address] [place]., [address] CD3 Absolute 1,369 661 - 1,963 cells/mcL [facility] Comment:Testing performed by : [facility], [address] [facility], [address] CD4 pct 58 31 - 64 % [facility] Comment:Testing performed by : [facility], [address] [facility], [address] CD4 Absolute 988 365 - 1,294 cells/mcL [facility] Comment:Testing performed by : [facility], [address] [facility], [address] CD8 pct 22 12 - 40 % [facility] Comment:Testing performed by : [facility], [address] [facility], [address] CD8 Absolute 367 187 - 781 cells/mcL [facility] Comment:Testing performed by : [facility], [address] [facility], [address] CD19 pct 10 6 - 25 % [facility] Comment:Testing performed by : [facility], [address] [facility], [address] CD19 Absolute 178 86 - 488 cells/mcL [facility] Comment:Testing performed by : [facility], [address] [facility], [address] [id number] pct 11 5 - 25 % [facility] Comment:Testing performed by : [facility], [address] [facility], [address] [id number] Absolute 203 76 - 467 cells/mcL [facility] Comment:Testing performed by : [facility], [address] [facility], [address] CD4/CD8 ratio 2.6 [facility] Comment:Testing performed by : [facility], [address] [facility], [address] Blood 01/04/2025 11:2 8 AM CDT 01/04/2025 5:21 PM CDT Jaiden Hall MD LAB BLOOD ORDERABLES Final Result [facility] [address] Department [place] [address] * CBC with auto differential (01/04/2025 11:28 AM CDT) [facility] WBC 7.74 3.80 - 9.90 K/cumm Hgb 13.9 11.9 - 15.5 g/dL [facility] Hct 41.8 35.6 - 45.5 % [facility] Plt 305 150 - 400 K/cumm [facility] MPV 9.9 9.1 - 12.3 fL [facility] RBC 4.57 3.90 - 5.20 M/cumm [facility] MCV 91.5 81.3 - 96.4 fL [facility] MCH 30.4 27.1 - 33.3 pg [facility] MCHC 33.3 32.3 - 35.7 g/dL [facility] RDW CV 12.6 11.1 - 14.9 % [facility] RDW SD 41.7 35.7 - 48.1 fL [facility] NRBC abs 0.00 0.00 - 0.01 K/cumm [facility] Blood 01/04/2025 11:2 8 AM CDT 01/04/2025 12:48 PM CDT Jaiden Hall MD LAB BLOOD ORDERABLES Final Result Performing Organization Address [facility] Co de Phone Number [facility] [address] Department [place] [address] * Hepatitis panel, acute Blood (01/04/2025 11:28 AM CDT) [facility] Hep A IgM Nonreactive Nonreactive Comment: Interpretive Data: If Hep A IgM Ab is reported as Equivocal, a new sample should be drawn in two weeks for testing. Current interpretive data was last revised on 19. Hep B core IgM Nonreactive Nonreactive [facility] Comment: Interpretive Data If HepB Core IgM Ab is reported as Equivocal, a new sample should be drawn in two weeks for testing. Current interpretive data was last revised on 19. Hep C Ab Nonreactive Nonreactive [facility] Comment: Interpretive Data Nonreactive: Antibodies to HCV [...] last revised on 2019. HepBsAg Nonreactive Nonreactive [facility] Blood 01/04/2025 11:2 8 AM CDT 01/04/2025 12:47 PM CDT Jaiden Hall MD LAB MICROBIOLOGY - GE NERAL ORDERABLES Final Result [facility] [address] [place] [address] * Hepatitis B core antibody, total Blood (01/04/2025 11:28 AM CDT) Pathologist [facility] [place] [facility] Hep B core IgG/IgM Nonreactive Nonreactive Comment:Testing performed by : [facility], [address] [facility], [place]., [address] Blood 01/04/2025 11:2 8 AM CDT 01/04/2025 5:20 PM CDT Jaiden Hall MD LAB MICROBIOLOGY - GE NERAL ORDERABLES Final Result [facility] [address] Department [place] [address] * Vitamin D 25 hydroxy (01/04/2025 11:28 AM CDT) Vitamin D 25-OH 56 30 - 80 ng/mL Blood 01/04/2025 11:2 8 AM CDT 01/04/2025 12:48 PM CDT Jaiden Hall MD LAB BLOOD ORDERABLES Final Result Performing Organization Address [facility] Co de Phone Number [facility] [address] [facility] [place] [address] * Varicella Zoster IgG antibody Blood (01/04/2025 11:28 AM CDT) [facility] VZV IgG Reactive Reactive Comment: Reactive: Results suggest response to immunization or prior exposure to the virus. Testing performed by: [facility], [address] [place] [address]., [address] Blood 01/04/2025 11:2 8 AM CDT 01/04/2025 5:20 PM CDT Jaiden Hall MD LAB MICROBIOLOGY - GE NERAL ORDERABLES Final Result Performing Organization Address [facility] Co de Phone Number [facility] [address] Department [place] [address] * (ABNORMAL) Comprehensive metabolic panel (01/04/2025 11:28 AM CDT) [facility] Sodium 141 135 - 145 mmol/L Potassium, pl 4.2 3.3 - 4.9 mmol/L [facility] Chloride 102 97 - 110 mmol/L [facility] CO2 26 22 - 32 mmol/L [facility] Anion gap 13 2 - 15 mmol/L [facility] BUN 13 6 - 25 mg/dL [facility] Creatinine 0.44(L) 0.60 - 1.10 mg/dL [facility] Glucose 95 70 - 199 mg/dL [facility] Comment: Interpretive Data Fasting glucose >/= 126 [...] classification and Diagnosis of Diabetes Diabetes Care 2021; 46: S19-S40. Current interpretive data was last revised 2022. Calcium 9.6 8.5 - 10.3 mg/dL [facility] Bilirubin, total 0.3 0.1 - 1.2 mg/dL [facility] Protein, pl 7.0 6.5 - 8.5 g/dL [facility] Albumin 4.4 3.5 - 5.0 g/dL [facility] Alk phos 104 40 - 130 Units/L [facility] ALT 29 7 - 45 Units/L [facility] AST 28 10 - 45 Units/L [facility] Blood 01/04/2025 11:2 8 AM CDT 01/04/2025 12:48 PM CDT us Jaiden Hall MD LAB BLOOD ORDERABLES Final Result [facility] [address] [place] [address] from Last 3 Months Insurance MEDICARE [facility] MEDICARE [facility] Address: [address] [place] [address] MEDICARE [facility] Address: [address] [place] [address] Care Teams Clerk Television Production Relationship Specialty Start Date End Date Chuck Looney MD [address] [place] [address] PCP - General 03/11/17
--- OUTSIDE RECORDS SUMMARY | 2025-01-19 05:57 | XMS_ITS | Encounter Summary ---
Author Organization [facility] Address [address] [place] [address] Care Team Providers Care Ultrasound Tester Name Role Phone Chuck Looney MD Primary Care Provider +1- [phone] Encounter Details Date Type Department Care Team (Late st Contact Info) Description 03/17/2006 Outpatient Historical Division of Neurology 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
--- OUTSIDE RECORDS SUMMARY | 2025-01-19 05:57 | XMS_ITS | Encounter Summary ---
Author Organization [facility] Address [address] [place] [address] Care Team Providers Care Attending Pathologist Name Role Phone Chuck Looney MD Primary Care Provider +1- [phone] Encounter Details Date Type Department Care Team (Late st Contact Info) Description 07/10/2002 Outpatient Historical Division of Neurology 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
--- OUTSIDE RECORDS SUMMARY | 2025-01-19 05:57 | XMS_ITS | Encounter Summary ---
Author Organization [facility] Address [address] [place] [address] Care Team Providers Care Family Day Care Provider Name Role Phone Chuck Looney MD Primary Care Provider +1- [phone] Encounter Details Date Type Department Care Team (Late st Contact Info) Description 08/23/2003 Outpatient Historical Division of Neurology [address] [address] Willard Villegas MD [address] [place] [address] Social History Tobacco Use Types Packs/Day Years Used Date Smoking Tobacco: Never Assessed Comments Unknown Sex and Gender Information Value Date Recorded Sex Assigned at Not on file Legal Sex Female 2:59 AM ROLLER CLEANER Gender Identity Not on file Sexual Orientation Not on file documented as of this encounter Plan of Treatment Not on file documented as of this encounter Visit Diagnoses Not on filedocumented in this encounter Care Teams Family Day Care Provider Relationship Specialty Start Date End Date Chuck Looney MD PCP - General 02/25/09 documented as of this encounter
--- OUTSIDE RECORDS SUMMARY | 2025-01-19 05:57 | XMS_ITS | Encounter Summary ---
Author Organization [facility] Address [address] [place] [address] Care Team Providers Care Supervisor Printing And Stamping Name Role Phone Chuck Looney MD Primary Care Provider +1- [phone] Encounter Details Date Type Department Care Team (Late st Contact Info) Description 04/23/2005 Outpatient Historical [facility] MRI DEPT Willard Villegas MD [address] [facility] [address] [place] [address] MULTIPLE SCLEROSIS (CMS/HCC) (Primary Dx) Social History Tobacco Use Types Packs/Day Years Used Date Smoking Tobacco: Never Assessed Comments Unknown Sex and Gender Information Value Date Recorded Sex Assigned at Not on file Legal Sex Female 2:59 AM MACHINIST FIRST CLASS Gender Identity Not on file Sexual Orientation Not on file documented as of this encounter Plan of Treatment Not on file documented as of this encounter Visit Diagnoses Diagnosis Multiple sclerosis (CMS/HCC)- Primary Multiple sclerosis documented in this encounter Care Teams Supervisor Printing And Stamping Relationship Specialty Start Date End Date Chuck Looney MD PCP - General 02/25/09 documented as of this encounter
--- OUTSIDE RECORDS SUMMARY | 2025-01-19 05:57 | XMS_ITS | Encounter Summary ---
Author Organization [facility] Address [address] [place] [address] Care Team Providers Care Toll Repairer Central Office Name Role Phone Chuck Looney MD Primary Care Provider +1- [phone] Encounter Details Date Type Department Care Team (Late st Contact Info) Description 09/15/2006 Outpatient Historical Division of Neurology 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
--- OUTSIDE RECORDS SUMMARY | 2025-01-19 05:57 | XMS_ITS | Encounter Summary ---
Author Organization [facility] Address [address] [place] [address] Care Team Providers Care Ekg Monitor Tech Name Role Phone Chuck Looney MD Primary Care Provider +1- [phone] Encounter Details Date Type Department Care Team (Late st Contact Info) Description 04/14/1999 Outpatient Historical Division of Neurology [address] [address] Willard Villegas MD [address] [place] [address] Social History Tobacco Use Types Packs/Day Years Used Date Smoking Tobacco: Never Assessed Comments Unknown Sex and Gender Information Value Date Recorded Sex Assigned at Not on file Legal Sex Female 2:59 AM CLINICAL EDUCATION COORDINATOR Gender Identity Not on file Sexual Orientation Not on file documented as of this encounter Plan of Treatment Not on file documented as of this encounter Visit Diagnoses Not on filedocumented in this encounter Care Teams Ekg Monitor Tech Relationship Specialty Start Date End Date Chuck Looney MD PCP - General 02/25/09 documented as of this encounter
--- OUTSIDE RECORDS SUMMARY | 2025-01-19 05:57 | XMS_ITS | Encounter Summary ---
Author Organization [employer] Address [address] [place] [address] Care Team Providers Care Director Trading Name Role Phone Chuck Looney MD Primary Care Provider +1- [phone] Encounter Details Date Type Department Care Team (Late st Contact Info) Description 02/19/2005 Outpatient Historical Division of Neurology 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
--- OUTSIDE RECORDS SUMMARY | 2025-01-19 05:57 | XMS_ITS | Encounter Summary ---
Author Organization [facility] Address [address] [place] [address] Care Team Providers Care Sugar Controller Name Role Phone Chuck Looney MD Primary Care Provider +1- [phone] Encounter Details Date Type Department Care Team (Late st Contact Info) Description 06/24/2001 Outpatient Historical HIS MRI DEPT Willard Villegas MD [address] [facility] [address] [place] [address] MULTIPLE SCLEROSIS (CMS/HCC) (Primary Dx) Social History Tobacco Use Types Packs/Day Years Used Date Smoking Tobacco: Never Assessed Comments Unknown Sex and Gender Information Value Date Recorded Sex Assigned at Not on file Legal Sex Female 2:59 AM STAGE SET UP 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
--- OUTSIDE RECORDS SUMMARY | 2025-01-19 05:57 | XMS_ITS | Encounter Summary ---
Author Organization [facility] Address [address] [place] [address] Care Team Providers Care Paste Up Copy Camera Operator Name Role Phone Chuck Looney MD Primary Care Provider +1- [phone] Encounter Details Date Type Department Care Team (Late st Contact Info) Description 01/10/2003 Outpatient Historical [facility] Willard Villegas MD [address] [facility] [address] [place] [address] MULTIPLE SCLEROSIS (CMS/HCC) (Primary Dx) Social History Tobacco Use Types Packs/Day Years Used Date Smoking Tobacco: Never Assessed Comments Unknown Sex and Gender Information Value Date Recorded Sex Assigned at Not on file Legal Sex Female 2:59 AM FUEL AGENT Gender Identity Not on file Sexual Orientation Not on file documented as of this encounter Plan of Treatment Not on file documented as of this encounter Visit Diagnoses Diagnosis Multiple sclerosis (CMS/HCC)- Primary Multiple sclerosis documented in this encounter Care Teams Paste Up Copy Camera Operator Relationship Specialty Start Date End Date Chuck Looney MD PCP - General 02/25/09 documented as of this encounter
--- OUTSIDE RECORDS SUMMARY | 2025-01-19 05:57 | XMS_ITS | Encounter Summary ---
Author Organization [facility] Address [address] [place] [address] Care Team Providers Care Rotary Drill Operator Helper Name Role Phone Chuck Looney MD Primary Care Provider [phone]- [phone] Encounter Details Date Type Department Care Team (Latest Contact Info) Description 04/14/1999 Outpatient Historical [facility] Willard Gillespie MD [address] [facility] [address] [place] [address] Multiple sclerosis (CMS/HCC) (Primary Dx) Social History Tobacco Use Types Packs/Day Years Used Date Smoking Tobacco: Never Assessed Comments Unknown Sex and Gender Information Value Date Recorded Sex Assigned at Not on file Legal Sex Female 2:59 AM YARD 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
--- OUTSIDE RECORDS SUMMARY | 2025-01-19 05:58 | XMS_ITS | Encounter Summary ---
Author Organization [facility] Address [address] [place] [address] Care Team Providers Care Felting Machine Operator Name Role Phone Chuck Looney MD Primary Care Prov ider Encounter Details Date Type Department Care Team (Late st Contact Info) Description 01/15/2025 Telephone [facility] [address] [address] Rachell Martinez RN Social History Tobacco Use Types Packs/Day Years Used Date Smoking Tobacco: Never Smokeless Tobacco: Never Alcohol Use Standard Drinks/Week Comments No 0 (1 standard drink = 0.6 oz pur e alcohol) Comments No Sex and Gender Information Value Date Recorded Sex Assigned at Not on file 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
--- OUTSIDE RECORDS SUMMARY | 2025-01-19 05:58 | XMS_ITS | Encounter Summary ---
Author Organization [facility] Address [address] [place] [address] Care Team Providers Care Briquetting Machine Operator Name Role Phone Chuck Looney MD Primary Care Provider +1- [phone] Encounter Details Date Type Department Care Team (Late st Contact Info) Description 10/11/2003 Outpatient Historical Division of Neurology 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
--- OUTSIDE RECORDS SUMMARY | 2025-01-19 05:58 | XMS_ITS | Continuity of Care Document ---
Author Organization [facility] Address [place], [place] [address] Care Team Providers Care Transportation Planning Engineer Name Role Phone Marcela Pugh MD Unavailable Unavailable Allergies, Adverse Reactions, Alerts Substance Reaction Status Criticality Sulfa (Sulfonamide Antibiotics) Active No Information codeine Active No Information Medications Medication Instructions Dosage Effective Dates (start - stop) Status Comments OCREVUS (unknown strength) Not Available - Active GABAPENTIN (unknown strength) Not Available - Active LISINOPRIL (unknown strength) Not Available - Active OXYBUTYNIN CHLORIDE ER (unknown strength) Not Available - Active PRAVASTATIN SODIUM (unknown strength) Not Available - Active TIZANIDINE HCL (unknown strength) Not Available - Active TRIMETHOPRIM (unknown strength) Not Available - Active VENLAFAXINE HCL ER (unknown strength) Not Available - Active VITAMIN D3 (unknown strength) Not Available - Active Procedures Procedure Date OFFICE/OUTPATIENT VISIT EST OFFICE/OUTPATIENT VISIT EST OFFICE/OUTPATIENT VISIT EST OFFICE CONSULTATION Advance Directives Directive Yes / No Effective Date File Name Resuscitation Not Answered N/A N/A Life Support Not Answered N/A N/A Intubation Not Answered N/A N/A Antibiotics Not Answered N/A N/A IV Fluid Support Not Answered N/A N/A Tube Feed Not Answered N/A N/A Other Directive N/A N/A WARNING:The information contained in this section is historical and is provided for information only and does not constitute a legal document or any assurance that the information is still accurate. Please verify the information with the jaimes of the legal document before using it for clinical purposes. 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 [address], [place], [place], [id number] . tel: [phone] [facility], [place], [address], [facility] Spasticity secondary to MS (chief complaint) Multiple sclerosisCerv ical dystoniaSpast ic neurogenic bladdersNeuro genic bowelNeuropat hic painWheelchai r dependenceBod y mass index [BMI] 28.0-28.9, adult 5 Keaton Medrano. [address], [place], [place], [id number] . tel: [phone] [facility], [place], [address], [facility] Spasticity secondary to MS (chief complaint) Multiple sclerosisCerv ical dystoniaSpast ic neurogenic bladdersNeuro genic bowelNeuropat hic painWheelchai r dependenceBod y mass index [BMI] 28.0-28.9, adult 4 Keaton Medrano. [address], [place], [place], [id number] . tel: [phone] [facility], [place], [address], [facility] Spasticity secondary to MS (chief complaint) Multiple sclerosisCerv ical dystoniaSpast ic neurogenic bladdersNeuro genic bowelNeuropat hic painBody mass index [BMI] 28.0-28.9, adultWheelcha ir dependence 4 Keaton Medrano. [address], [place], [place], [id number] . tel: [phone] [facility], [place], [address], [facility] Spasticity due to MS (chief complaint) Multiple sclerosisCerv ical dystoniaWheel chair dependenceBod y mass index [BMI] 28.0-28.9, adultSpastic neurogenic bladdersNeuro genic bowelNeuropat hic pain 4 Keaton Medrano. [address], [place], [place], [id number] . tel: [phone] OFFICE/OUTPAT IENT VISIT EST [facility], [place], [address], [facility] Spasticity secondary to MS (chief complaint) Multiple sclerosisCerv ical dystoniaWheel chair dependenceBod y mass index [BMI] 28.0-28.9, adult 4 Keaton Medrano. [address], [place], [place], [id number] . tel: [phone] [facility], [place], [address], [facility] Spasticity secondary to MS (chief complaint) Multiple sclerosisCerv ical dystoniaWheel chair dependenceBod y mass index [BMI] 28.0-28.9, adult 3 Keaton Medrano. [address], [place], [place], [id number] . tel: [phone] [facility], [place], [address], [facility] Spasticity secondary to MS (chief complaint) Body mass index [BMI] 28.0-28.9, adultMultiple sclerosisCerv ical dystoniaWheel chair dependence 3 Keaton Medrano. [address], [place], [place], [address] . tel: [phone] [facility], [place], [address], [facility] Spasticity secondary to MS (chief complaint) Body mass index [BMI] 28.0-28.9, adultCervical dystoniaMulti ple sclerosisWhee lchair dependence 3 Keaton Medrano. [address], [place], [place], [address] . tel: [phone] [facility], [place], [address], [facility] Spasticity secondary to MS (chief complaint) Body mass index [BMI] 28.0-28.9, adultMultiple sclerosisCerv ical dystoniaWheel chair dependence 3 Keaton Medrano. [address], [place], [place], [id number] . tel: [phone] OFFICE/OUTPAT IENT VISIT EST [facility], [place], [address], [facility] Spasticity secondary to MS (chief complaint) Body mass index [BMI] 28.0-28.9, adultMultiple sclerosisCerv ical dystoniaWheel chair dependence 2 Keaton Medrano. [address], [place], [place], [address] . tel: [phone] [facility], [place], [address], [facility] Spasticity secondary to MS (chief complaint) Body mass index [BMI] 28.0-28.9, adultCervical dystoniaMulti ple sclerosisWhee lchair dependence 2 Keaton Medrano. [address], [place], [place], [id number] . tel: [phone] [facility], [place], [address], [facility] Spasticity secondary to MS (chief complaint) Body mass index [BMI] 28.0-28.9, adultCervical dystoniaMulti ple sclerosisWhee lchair dependenceSpa stic neurogenic bladders 2 Keaton Medrano. [address], [place], [place], [address] . tel: [phone] [facility], [place], [place], [facility], [facility] Spasticity secondary to MS (chief complaint) Multiple sclerosisCerv ical dystoniaSpast ic neurogenic bladdersNeuro genic bowelNeuropat hic painWheelchai r dependenceBod y mass index [BMI] 28.0-28.9, adult Aug- 2 Keaton Medrano. [address], [place], [place], [address] . tel: [phone] [facility], [place], [address], [facility] Spasticity secondary to MS (chief complaint) Body mass index [BMI] 28.0-28.9, adultMultiple sclerosisCerv ical dystoniaSpast ic neurogenic bladdersNeuro genic bowelNeuropat hic painWheelchai r dependence Nov- 1 Keaton Medrano. [address], [place], [place], [address] . tel: [phone] [facility], [place], [address], [facility] Follow Up of Spasticity secondary to MS (chief complaint) Body mass index [BMI] 28.0-28.9, adultMultiple sclerosisSpas tic neurogenic bladdersNeuro genic bowelNeuropat hic painWheelchai r dependenceCer vical dystonia Jan- 1 Keaton Medrano. [address], [place], [place], [address] . tel: [phone] [facility], [place], [address], [facility] Follow Up of Spasticity secondary to MS (chief complaint) Body mass index [BMI] 28.0-28.9, adultMultiple sclerosisSpas tic neurogenic bladdersNeuro genic bowelNeuropat hic painWheelchai r dependenceCer vical dystonia Apr-0 1 Keaton Medrano. [address], [place], [place], [address] . tel: [phone] [facility], [place], [address], [facility] Follow Up of Spasticity secondary to MS (chief complaint) Body mass index [BMI] 28.0-28.9, adultMultiple sclerosisSpas tic neurogenic bladdersNeuro genic bowelNeuropat hic painWheelchai r dependenceCer vical dystonia Dec-3 0 Keaton Medrano. [address], [place], [place], [address] . tel: [phone] [facility], [place], [address], [facility] Follow Up of Spasticity secondary to MS (chief complaint) Multiple sclerosisSpas tic neurogenic bladdersNeuro genic bowelNeuropat hic painWheelchai r dependenceCer vical dystoniaTremo rs of nervous systemHistory of hypertensionD epression due to multiple sclerosisHist ory of hypercholeste rolemiaBody mass index [BMI] 28.0-28.9, adult 0 Keaton Medrano. [address], [place], [place], [address] . tel: [phone] [facility], [place], [facility], [facility] Follow Up of spasticity secondary to MS (chief complaint) Multiple sclerosisSpas tic neurogenic bladdersNeuro genic bowelNeuropat hic painWheelchai r dependenceCer vical dystoniaTremo rs of nervous systemHistory of hypertensionD epression due to multiple sclerosisHist ory of hypercholeste rolemia 0 Keaton Medrano. [address], [place], [place], [address] . tel: [phone] [facility], [place], [facility], [facility] Follow Up of spasticity secondary to MS (chief complaint) Body mass index (BMI) 28.0-28.9, adultMultiple sclerosisSpas tic neurogenic bladdersNeuro genic bowelNeuropat hic painWheelchai r dependenceCer vical dystonia 0 Keaton Medrano. [address], [place], [place], [address] . tel: [phone] [facility], [place], [facility], [facility] Follow Up of spasticity secondary to MS (chief complaint) Body mass index (BMI) 29.0-29.9, adultMultiple sclerosisCerv ical dystoniaSpast ic neurogenic bladdersNeuro genic bowelNeuropat hic painWheelchai r dependence Dec-1 1-201 9 Keaton Medrano. [address], [place], [place], [address] . tel: [phone] [facility], [place], [address], [facility] Follow Up of spasticity secondary to MS (chief complaint) Multiple sclerosisCerv ical dystoniaSpast ic neurogenic bladdersNeuro genic bowelNeuropat hic painWheelchai r dependenceBod y mass index (BMI) 29.0-29.9, adult Sep-0 - 9 Keaton Medrano. [address], [place], [place], [address] . tel: [phone] [facility], [place], [address], [facility] Follow Up of spasticity secondary to MS (chief complaint) Body mass index (BMI) 29.0-29.9, adultSpastic neurogenic bladdersNeuro pathic painHistory of hypertensionW heelchair dependenceCer vical dystoniaTremo rs of nervous systemMultipl e sclerosis 9 Keaton Medrano. [address], [place], [place], [address] . tel: [phone] [facility], [place], [address], [facility] Follow Up of spasticity secondary to MS (chief complaint) Body mass index (BMI) 29.0-29.9, adultSpastic neurogenic bladdersNeuro pathic painNeurogeni c bowelHistory of hypertensionW heelchair dependenceCer vical dystoniaMulti ple sclerosis 9 Keaton Medrano. [address], [place], [place], [address] . tel: [phone] OFFICE/OUTPAT IENT VISIT EST [facility], [place], [address], [facility] Follow Up of Spasticity secondary to MS (chief complaint) Body mass index (BMI) 28.0-28.9, adultMultiple sclerosisHist ory of hypertensionN europathic painNeurogeni c bowelSpastic neurogenic bladdersTremo rs of nervous systemWheelch air dependenceCer vical dystonia 8 Keaton Medrano. [address], [place], [place], [address] . tel: [phone] [facility], [place], [address], [facility] Follow Up of spasticity secondary to MS (chief complaint) Body mass index (BMI) 28.0-28.9, adultMultiple sclerosisDepr ession due to multiple sclerosisHist ory of hypercholeste rolemiaHistor y of hypertensionN europathic painNeurogeni c bowelSpastic neurogenic bladdersTremo rs of nervous systemWheelch air dependenceCer vical dystonia 8 Keaton Medrano. [address], [place], [place], [address] . tel: [phone] OFFICE CONSULTATION [facility], [place], [address], [facility] MS (chief complaint) Body mass index (BMI) 28.0-28.9, adultWheelcha ir dependenceTre mors of nervous systemSpastic itySpastic neurogenic bladdersNeuro genic bowelNeuropat hic painDepressio n due to multiple sclerosisMult iple sclerosisHist ory of hypercholeste rolemiaHistor y of hypertension 8 Keaton Medrano. [address], [place], [place], [address] . tel: [phone] Referring Provider: Mabel Barroso [address], [place], [address]. tel:[phone] Family History Family Member Type Diagnosis Age At Onset Daughter Problem (finding) multiple sclerosis Daughter Problem (finding) Headaches Daughter Problem (finding) Thyroid disorder Mother Problem (finding) hypertension Father Problem (finding) hypertension Sister Problem (finding) Lupus erythematosus Payers Payer name Insurance type Covered republican ID Authoriza tion(s) Medicare E2 OT [id number] Rust E2 OT [id number] Social History Type Description Quantity Date Captured Comments Alcohol Use Details Unknown Caffeine Use Details Unknown Tobacco Use Status Never smoked tobacco 2024 Smoking Status Never smoker Non-Smoking Tobacco Use Details : No Details Available : No Details Available Sex Female Vital Signs Date / Time: Height Weight BMI Pulse Rate Blood Pressure Temperature Respiratory Rate Body Surface Area Head Circumference Head Circ. Percentile Wt./Margarito. Percentile BMI percentile Pulse Ox Inhaled Ox 8:48 AM 65.00 in 70.307 kg (155.00 lbs) 25.7 9 kg/m eter (2) 8:49 AM 65.00 in 70.307 kg (155.00 lbs) 25.7 9 kg/m eter (2) 94 /min 117/69 mm[Hg] 16 /min Chief Complaint And Reason For Visit From encounter dated '12/20/2024 09:00'. 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 Description: Socorro is being seen in my office today, accompanied by her , for a previously scheduled appointment for botulinum toxin injections. She is a very pleasant 69 year old woman who I have been following for her rehabilitation and spasticity needs secondary to multiple sclerosis (MS). The patient was diagnosed with MS in 1989. Socorro receives botulinum toxin injections to the neck as well as the right upper and bilateral lower extremities every 90 days with good results in terms of a reduction in the focal spasticity. She tells me that her and her have move to an independent living facility in [facility] and are selling the home where they have lived for the past 25 years. They tell me that they are very happy with the move.Socorro tells me that she has been having problems with her [employer]. Specifically, she tells methat the wheelchair has trouble going up inclines. She also tells that she needs her USB port replaced. She is agreeable for us to contact [facility] to have the wheelchair repaired. Reason For Referral Reason For Referral No Information Plan Of Treatment Date Type Action Status Referral Referred To: New power wheelchair. Ordered: Referrals: New power wheelchair.. Evaluate and treat ordered Referral Referred To: Seating System Ordered: Referrals: Seating System. Evaluate and treat ordered Referral Referred To: Right lateral support not locking Ordered: Referrals: Right lateral support not locking. Evaluate and treat ordered Referral Referred To: Trinity Hodgson [address] [place] [address], [phone] Ordered: Referrals: Trinity Hodgson. Evaluate and treat ordered Appointment Lola Taylor Scheduled History Of Present Illness Encounter Date Complaint History Of Prese nt Illness Spasticity secondary to MS Socorro is being seen in my office today, accompanied by her , for a previously scheduled appointment for botulinum toxin injections. She is a very pleasant 69 year old woman who I have been following for her rehabilitation and spasticity needs secondary to multiple sclerosis (MS). The patient was diagnosed with MS in 1989. Socorro receives botulinum toxin injections to the neck as well as the right upper and bilateral lower extremities every 90 days with good results in terms of a reduction in the focal spasticity. She tells me that her and her have move to an independent living facility in [facility] and are selling the home where they have lived for the past 25 years. They tell me that they are very happy with the move.Socorro tells me that she has been having problems with her [employer]. Specifically, she tells me that the wheelchair has trouble going up inclines. She also tells that she needs her USB port replaced. She is agreeable for us to contact [facility] to have the wheelchair repaired. 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 She is a very pleasant 69 year old woman who I have been following for her rehabilitation and spasticity needs secondary to multiple sclerosis (MS). The patient was diagnosed with MS in 1989. Socorro receives botulinum toxin injections to the neck as well as the right upper and bilateral lower extremities every 90 days with good results in terms of a reduction in the focal spasticity. She tells me that she has noticed spasticity in her toe extensors, as well as in the neck muscles as the effects of the botulinum toxin wore off. She denies any falls. 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 She is a very pleasant 69 year old woman who I have been following for her rehabilitation and spasticity needs secondary to multiple sclerosis (MS). The patient was diagnosed with MS in 1989. Socorro receives botulinum toxin injections to the neck as well as the right upper and bilateral lower extremities every 90 days with good results in terms of a reduction in the focal spasticity. She denies any falls. 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 She is a very pleasant 68 year old woman who I have been following for her rehabilitation and spasticity needs secondary to multiple sclerosis (MS). The patient was diagnosed with MS in 1989. Socorro receives botulinum toxin injections to the neck as well as the right upper and bilateral lower extremities every 90 days with good results in terms of a reduction in the focal spasticity. The patient tells me that she can tell when she is due for these injections, as she feels the spasticity increasing. She denies any falls. Spasticity due to MS Socorro is be ing seen in my office today, accompanied by her , for a previously scheduled appointment for a face to face wheelchair evaluation and for botulinum toxin injections. She is a very pleasant 68 year old woman who I have been following for her rehabilitation and spasticity needs secondary to multiple sclerosis (MS). The patient was diagnosed with MS in 1989. Socorro receives botulinum toxin injections to the neck as well as the right upper and bilateral lower extremities every 90 days with good results in terms of a reduction in the focal spasticity. The patient tells me that she can tell when she is due for these injections, as she feels the spasticity increasing. She denies any falls. The patient tells me that she was experiencing right UQ pain. She had an extensive work up that was unremarkable. She was seen by Dr. Barroso who realized that the pain was due to the ribs touching the pelvis what was causing the pain. She says that she spends hours in her wheelchair and that he wheelchair is no longer fitting her properly. She tells me that the cushion is not properly providing the support that it once did. Socorro believes that her wheelchair is >5 years old. She remains independent with WC propulsion. 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 She is a very pleasant 68 year old woman who I have been following for her rehabilitation and spasticity needs secondary to multiple sclerosis (MS). The patient was diagnosed with MS in 1989. Socorro receives botulinum toxin injections to the neck as well as the right upper and bilateral lower extremities every 90 days with good results in terms of a reduction in the focal spasticity. The patient tells me that she can tell when she is due for these injections, as she feels the spasticity increasing. She denies any falls. The patient tells me that she just got back from [facility], where they own a time share. She says that on their drive to [place] the bolt that holds the chair in place in the van broke. 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 She is a very pleasant 68 year old woman who I have been following for her rehabilitation and spasticity needs secondary to multiple sclerosis (MS). The patient was diagnosed with MS in 1989. Socorro receives botulinum toxin injections to the neck as well as the right upper and bilateral lower extremities every 90 days with good results in terms of a reduction in the focal spasticity. The patient tells me that she can tell when she is due for these injections, as she feels the spasticity increasing. The patient tells me that she would like to decrease the amount of botulinum toxin that I am injecting to the lower extremities and increase the dose that she receives in the neck. 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 She is a very pleasant 67 year old woman who I have been following for her rehabilitation and spasticity needs secondary to multiple sclerosis (MS). The patient was diagnosed with MS in 1989. Socorro receives botulinum toxin injections to the neck as well as the right upper and bilateral lower extremities every 90 days with good results in terms of a reduction in the focal spasticity. The patient tells me that she can tell when she is due for these injections, as she feels no spasticity increasing. Lola is doing well today. She denies any falls or hospital visits since we've seen her last. She just return from a cross country trip with her . 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 She is a very pleasant 67 year old woman who I have been following for her rehabilitation and spasticity needs secondary to multiple sclerosis (MS). The patient was diagnosed with MS in 1989. Socorro receives botulinum toxin injections to the neck as well as the right upper and bilateral lower extremities every 90 days with good results in terms of a reduction in the focal spasticity. The patient tells me that she can tell when she is due for these injections, as she feels no spasticity increasing. And she also tells me that she has been experiencing pain in the right shoulder. She understands that she leans to the right in the wheelchair. She agrees that the right armrest could be set up higher for better support, which could help with the right arm pain. She is agreeable with me reaching out to her vendor, [email or web address], you have the wheelchair assessed. 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 She is a very pleasant 67 year old woman who I have been following for her rehabilitation and spasticity needs secondary to multiple sclerosis (MS). The patient was diagnosed with MS in 1989. Socorro receives botulinum toxin injections to the neck as well as the right upper and bilateral lower extremities every 90 days with good results in terms of a reduction in the focal spasticity. Today, Socorro is doing well. She tells me that she has not had any falls or hospital visits recently. She denies any changes. She does tell me that her and her are going on a trip to [employer] [place]. 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 She is a very pleasant 66 year old woman who I have been following for her rehabilitation and spasticity needs secondary to multiple sclerosis (MS). The patient was diagnosed with MS in 1989. Socorro receives botulinum toxin injections to the neck as well as the right upper and bilateral lower extremities every 90 days with good results in terms of a reduction in the focal spasticity. Today, Socorro is doing well. She denies any falls or hospital visits. She denies any skin breakdown. 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 She is a very pleasant 66 year old woman who I have been following for her rehabilitation and spasticity needs secondary to multiple sclerosis (MS). The patient was diagnosed with MS in 1989. Socorro receives botulinum toxin injections to the neck as well as the right upper and bilateral lower extremities every 90 days with good results in terms of a reduction in the focal spasticity. Today, Socorro is doing well. She tells me that her and her had Covid the beginning of December and was admitted to [facility] for 5 days. 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 She is a very pleasant 66 year old woman who I have been following for her rehabilitation and spasticity needs secondary to multiple sclerosis (MS). The patient was diagnosed with MS in 1989. Socorro receives botulinum toxin injections to the neck as well as the right upper and bilateral lower extremities every 90 days with good results in terms of a reduction in the focal spasticity. Today, Socorro is doing well. She tells me that she tolerated her last round of injections well. She denies any falls, hospital visits or skin breakdown at the moment. 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 She is a very pleasant 66 year old woman who I have been following for her rehabilitation and spasticity needs secondary to multiple sclerosis (MS). The patient was diagnosed with MS in 1989. Socorro receives botulinum toxin injections to the neck as well as the right upper and bilateral lower extremities every 90 days with good results in terms of a reduction in the focal spasticity. Socorro tells me that she has been doing well. She tells me that she has not had any falls or hospital visits recently. She denies any bowel or bladder changes. The patient tells me that she is ready for these injections as she has noticed an increase in the spasticity. 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 She is a very pleasant 65 year old woman who I have been following for her rehabilitation and spasticity needs secondary to multiple sclerosis (MS). The patient was diagnosed with MS in 1989. Socorro receives botulinum toxin injections to the neck as well as the right upper and bilateral lower extremities every 90 days with good results in terms of a reduction in the focal spasticity. Today, Socorro is doing well. She tells me that she had a toenail removed recently. She denies any falls or hospital visits. Follow Up of Spastic ity secondary to MS Socorro is being seen in my office today, accompanied by her , for a previously scheduled appointment for botulinum toxin injections. She is a very pleasant 65 year old woman who I have been following for her rehabilitation and spasticity needs secondary to multiple sclerosis (MS). The patient was diagnosed with MS in 1989. Socorro receives botulinum toxin injections to the neck as well as the right upper and bilateral lower extremities every 90 days with good results in terms of a reduction in the focal spasticity. Socorro tells me that he is doing well. She says her last round of injections went well. She says that she has had one fall but was not hurt. Follow Up of Spastic ity secondary to MS Socorro is being seen in my office today, accompanied by her , for a previously scheduled appointment for botulinum toxin injections. She is a very pleasant 65 year old woman who I have been following for her rehabilitation and spasticity needs secondary to multiple sclerosis (MS). The patient was diagnosed with MS in 1989. Socorro receives botulinum toxin injections to the neck as well as the right upper and bilateral lower extremities every 90 days with good results in terms of a reduction in her spasticity. The reduction in the spasticity helps with the ease of care. It also helps with her positioning in the wheelchair and in her bed and ease of transfers. Today, Lola tells me her last round of injections went well. She denies any falls since we have seen her last. She is not currently in any therapy. She is fully vaccinated. The patient tells me that she is planning a trip to [place] this December. Follow Up of Spastic ity secondary to MS Socorro is being seen in my office today, accompanied by her , for a previously scheduled appointment for botulinum toxin injections. She is a very pleasant 65 year old woman who I have been following for her rehabilitation and spasticity needs secondary to multiple sclerosis (MS). The patient was diagnosed with MS in 1989. Socorro receives botulinum toxin injections to the neck as well as the right upper and bilateral lower extremities every 90 days with good results in terms of a reduction in her spasticity. The patient tells me that her right elbow flexors are pretty tight. She is wondering if she can receive a higher dose of botulinum toxin today in order to have more injected to this muscle group. She tells me that the tightness in the right elbow flexors interfere with positioning as well as ADLs. It also causes discomfort. Socorro tells me that she has been doing well. She says she tolerated the last round of injections well. She denies any falls since we have seen her last. Follow Up of Spastic ity secondary to MS Socorro is being seen in my office today, accompanied by her , for a previously scheduled appointment for botulinum toxin injections. She is a very pleasant 64 year old woman who I have been following for her rehabilitation and spasticity needs secondary to MS. The patient was diagnosed with MS in 1989. Socorro receives botulinum toxin injections to the neck as well as the right upper and bilateral lower extremities every 90 days with good results in terms of a reduction in her spasticity. Socorro is doing good today. She tolerated her last round of injections well. Follow Up of spastic ity secondary to MS Socorro is being seen in my office today, accompanied by her , for a previously scheduled appointment for botulinum toxin injections. She is a very pleasant 64 year old woman who I have been following for her rehabilitation and spasticity needs secondary to MS. The patient was diagnosed with MS in 1989. Socorro receives botulinum toxin injections to the neck as well as the right upper and bilateral lower extremities with good results in terms of a reduction in her spasticity. The patient tells me that her right arm is still very tight. She is not attending therapy at this time but would like orders to return to [facility] after this injection cycle. Socorro had Botox to the bladder by Dr. Campa on 11/10/2019. Follow Up of spastic ity secondary to MS Socorro is being seen in my office today, accompanied by her , for a previously scheduled appointment for botulinum toxin injections. She is a very pleasant 64 year old woman who I have been following for her spasticity secondary to MS. The patient was diagnosed with MS in 1989. Socorro tells me that she experiences spasticity in the upper and lower extremities. The patient also receives Botox injections to the bladder by Dr. Campa every 6 months. Her last injection was in May and she is not scheduled again until November. She did very well with the last injections in terms of a reduction of the painful spasms. Socorro received her new power wheelchair, she had a few adjustments made but otherwise is doing very well. The patient finished attending therapy and would like to start again after this round of botulinum toxin injections. Follow Up of spastic ity secondary to MS Socorro is being seen in my office today, accompanied by her , for a previously scheduled appointment for botulinum toxin injections. She is a very pleasant 64 year old woman who I have been following for her spasticity secondary to MS. The patient was diagnosed with MS in 1989. Socorro tells me that she experiences spasticity in the upper and lower extremities. The patient also receives Botox injections to the bladder by Dr. Campa every 6 months. She did very well with the last injections in terms of a reduction of the painful spasms. Socorro would like orders to start attending therapy. The patient tells me that she will be getting her new power wheelchair on Wednesday. She is looking forward to this. Follow Up of spastic ity secondary to MS Socorro is being seen in my office today, accompanied by her , for a previously scheduled appointment for botulinum toxin injections. She is a very pleasant 63 year old woman who I have been following for her spasticity secondary to MS. The patient was diagnosed with MS in 1989. Socorro tells me that she experiences spasticity in the upper and lower extremities. The patient also receives Botox injections to the bladder by Dr. Campa every 6 months. Socorro did very well with the last injections in terms of a reduction of the painful spasms. She has noticed that they have worn off and that she is ready to be injected again. Socorro would like to start therapy again later this year. The patient is still waiting to receive her new power wheelchair through Dr. Barroso. Follow Up of spastic ity secondary to MS Socorro is being seen in my office today, accompanied by her , for a previously scheduled appointment for botulinum toxin injections. She is a very pleasant 63 year old woman who was referred to my office by her neurologist, Dr. 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 The patient was diagnosed with MS in 1989. Socorro tells me that she experiences spasticity in the upper and lower extremities. The patient also receives Botox injections to the bladder by Dr. Campa every 6 months. Socorro did very well with the last injections. She tells me that with attending OT and the injections on board she was doing great. She tells me that in the last 3 weeks or so, her right arm has become very tight and painful. She put OT on hold until she was reinjected today. The patient is not sure whether the tightness is related to her MS flaring up or the injections wearing off or both. She has a follow up with Dr. Barroso coming up. Socorro tells me [facility]. Her current wheelchair is 8 years old. Follow Up of spastic ity secondary to MS Socorro is being seen in my office today, accompanied by her , for her second round of botulinum toxin injections. She is a very pleasant 63 year old woman who was referred to my office by her neurologist, Dr. 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 The patient was diagnosed with MS in 1989. Socorro tells me that she experiences spasticity in the upper and lower extremities. The patient also receives Botox injections to the bladder by Dr. Campa every 6 months. Her last appointment was on 04/01/2018. Since her last appointment, the patient tells me that her spasticity has improved. She is able to move her right arm with more ease. She recently started attending OT and is looking forward to the progress she will make with the botulinum toxin and therapy together. Her goal is to get her arm to be able to straighten out. The patient reports to having no weakness at this time. Socorro would like to have the dose of botulinum toxin increased in the right brachioradialis, as she still experiencing painful spasms in this area. She would also like her quadricepts injected. She says that, though she experiences flexor spasms involving the hamstrings, during transfers, her legs straighten out. This causes pain and makes transfers more difficult. Socorro says that the neck musculature is more supple since she was injected. Follow Up of Spastic ity secondary to MS Socorro is being seen in my office today, accompanied by her , for her 6 week follow up from her first round of botulinum toxin injections. She is a pleasant 63 year old woman who was referred to my office by her neurologist, Dr. 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 The patient was diagnosed with MS in 1989. Socorro tells me that she experiences spasticity in the upper and lower extremities. The patient also receives Botox injections to the bladder by Dr. Campa every 6 months. Since her last appointment, the patient tells me that her spasticity has improved. She is able to move her right arm with more ease. She recently started attending OT and is looking forward to the progress she will make with the injections and therapy together. Her goal is to get her arm to be able to straighten out. The patient reports to having no weakness at this time. Socorro would like to have the dose of botulinum toxin increased in the right brachioradialis, as she still experiencing painful spasms in this area. She would also like her quadricepts injected. She says that, though she experiences flexor spasms involving the hamstrings, during transfers, her legs straighten out. This causes pain and makes transfers more difficult. Socorro says that the neck musculature is more supple since she was injected. She is very pleased with the therapy. She says that the therapist have been stretching her neck and this has significantly help the neck tightness. Follow Up of spastic ity secondary to MS Socorro is being seen in my office today, accompanied by her , for her first round of botulinum toxin injections. She is a pleasant 62 year old woman who was referred to my office by her neurologist, Dr. 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 The patient was diagnosed with MS in 1989. Socorro tells me that she experiences spasticity in the upper and lower extremities. The patient also has received Botox injections to the bladder by Dr. Campa on 04/01/2018. She is scheduled to see Dr. Barroso on 05/03/2018. She is looking forward to the relief that the botulinum toxin injections will provide. MS Quintanilla is being s een in my office today, accompained by her , for a new patient evaluation. She is a pleasent 62 year old woman who was referred to my office by her neurologist, , for possible botulinum toxin injections. The patient was diagnosed with MS in 1989. She tells me that around 1988 she started to experience right middle finger numbness. She had puchased a hot tub and noticed that whenever she used the hot tub, she felt quite weak. She also noticed pain radiating down her spine with neck flexion. In addition, she also began to experience numbness in her feet and legs. Socorro began to experience difficulty seeing in the right eye. She says that she noticed than this happend when she was hot. When she would cool off the eye sight would come back. The patient was referred to Dr. Del Castillo at [place] and was diagnosed with MS. Socorro transferred care to Dr. Villegas at [facility], who she saw for many years. She was placed on Copaxone, and says that she did well for years. Unfortunately, she says that she got tired of the injections and stopped the Copaxone with worsening of her neurological status. She says that she was started on Gilenya, but her neurologiacal status continues to worsen. She switched care to [facility] and was seen by Dr. Barnes. Because of the decline in her neurological status, she was switched back to Copaxone. In a addition, the patient has switched care to Dr. Barroso at [facility]. The patient tells me that her last MRI, which was done this past September, revealed an increase in lesions. She tells me that she is now receiving Ocrevus infusions. She is on Gabapentin for neuropathic pain. Socorro uses a power wheelchair for mobility since 2002, when her legs became too weak for her to walk. Her current wheelchair is 8 years old. She says that since it still works, she does not want to get a new one, since her cost will be high. She has a ROHO cushion, which she likes. She admits that she leans to the left and will eventually need to be refitted with a more supportive sitting system. She tells me that her basically carries her to transfer her. She says that they have looked into Nathalia lifts, but she did not like them. She is able to feed herself using the left upper extremity, but has difficulty because of tremors. She has tried built up equipment, which did not help much. She has not tried weighted equipment. The patient ses Dr. Campa for her neurogenic bladder. She receives botulinum toxin to the bladder every 6 months for incontinece. She is also on Oxybutinin. Her cathes her 3 to 4 times a day. She does have a history of kidney stones. She sees Dr. Metz for the the kidney stones. She is on Trimethoprim for UTI prophylaxis. She says than in February she developed urosepsis after developing renal stones. Socorro tells me that she does become constipated and will drink Miralax every day but only has a bowel movement every 3 days or so. The patient presents today with a very tight and spastic right arm which she cannot straighten or lift up with out haveing pain. She takes Tizanidine, with some releif. The pain will begin to radiate in to her hands as well as in to her neck. She also has tightness in the lower extremities, mainly in the posterior thighs. She is not in therapy at this time but tries to strech daily. The patient has had no falls this year. Functional Status Date Functional Assessmen t No Information Instructions Date Instruction Additional Infor ade Giving encouragement to exercise Related to Body mass index [BMI] 28.0-28.9, adult Giving encouragement to exercise Related to Body mass index [BMI] 28.0-28.9, adult Giving encouragement to exercise Related to Body mass index [BMI] 28.0-28.9, adult Giving encouragement to exercise Related to Body mass index [BMI] 28.0-28.9, adult Giving encouragement to exercise Related to Body mass index [BMI] 28.0-28.9, adult Giving encouragement to exercise Related to Body mass index [BMI] 28.0-28.9, adult Giving encouragement to exercise Related to Body mass index [BMI] 28.0-28.9, adult Giving encouragement to exercise Related to Body mass index [BMI] 28.0-28.9, adult Giving encouragement to exercise Related to Body mass index [BMI] 28.0-28.9, adult Giving encouragement to exercise Related to Body mass index [BMI] 28.0-28.9, adult No strenuous exercis es or PT for 2 weeks after injection Related to Multiple sclerosis Please continue light stretching Related to Multiple sclerosis Giving encouragement to exercise Related to Body mass index [BMI] 28.0-28.9, adult Start therapy after 2 weeks Rela fitz to Multiple sclerosis Please continue light stretching Related to Multiple sclerosis No strenuous exercis es or PT for 2 weeks after injection Related to Multiple sclerosis Giving encouragement to exercise Related to Body mass index (BMI) 28.0-28.9, adult Please continue light stretching Related to Multiple sclerosis No strenuous exercis es or PT for 2 weeks after injection Related to Multiple sclerosis Giving encouragement to exercise Related to Body mass index (BMI) 29.0-29.9, adult No strenuous exercis es or PT for 2 weeks after injection Related to Multiple sclerosis Please continue light stretching Related to Multiple sclerosis Giving encouragement to exercise Related to Body mass index (BMI) 29.0-29.9, adult No strenuous exercis es or PT for 2 weeks after injection Related to Multiple sclerosis Please continue light stretching Related to Multiple sclerosis Giving encouragement to exercise Related to Body mass index (BMI) 29.0-29.9, adult No strenuous exercis es or PT for 2 weeks after injection Related to Multiple sclerosis Please continue light stretching Related to Multiple sclerosis Please continue light stretching Related to Cervical dystonia No strenuous exercis es or PT for 2 weeks after injection Related to Cervical dystonia Giving encouragement to exercise Related to Body mass index (BMI) 29.0-29.9, adult Giving encouragement to exercise Related to Body mass index (BMI) 28.0-28.9, adult Please continue light stretching Related to Multiple sclerosis Giving encouragement to exercise Related to Body mass index (BMI) 28.0-28.9, adult No strenuous exercis es or PT for 2 weeks after injection Related to Multiple sclerosis Please continue light stretching Related to Multiple sclerosis Resume/re-start therapy after 2 weeks Related to Multiple sclerosis Please continue light stretching Related to Multiple sclerosis Giving encouragement to exercise Related to Body mass index (BMI) 28.0-28.9, adult Assessments Type Assessment Date assessment Cervical dystonia impression Socorro presents with neck rotation, tightness and discomfort due to cervical dystonia. She has had extensive therapy and has taken muscle relaxants. She has had adjustments made to the wheelchair to better support her neck. In spite of these interventions, her neck rotation, tightness and discomfort persisted. She has been receiving botulinum toxin injections to the neck musculature with improvement. Today I injected at total of 600 units of botulinum toxin with 90 units devoted to her neck muscles. She tolerated the procedure well. These injections provide the patient with a decrease in the neck tightness, rotation and discomfort. She is able to move her neck with more ease. The patient is very pleased with these injections. She has been encouraged to continue stretching regularly assessment Spastic neurogenic bladders impression Socorro receives botul inum toxin injections by Dr. Campa. Her caths her 3 to 4 times a day. She is on trimethoprim for prophylaxis of UTIs assessment Wheelchair dependence impression Socorro is dependent o n her power wheelchair for all mobility. She is independent with propelling and managing her power wheelchair. 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 The spasticity causes discomfort and interferes with ADLs and positioning. She has been receiving botulinum toxin injections with good results. During this visit, I injected a total of 600 units of botulinum toxin with 510 units devoted to the right upper and bilateral lower extremities. The 90 units were devoted to the neck musculature. The botulinum toxin injections provide the patient with a reduction in the focal spasticity. She continues to stretch and to wear her braces. As a result, ADLs, mobility and positioning are done with more ease, decreasing the burden of care. The patient has been encouraged to stretch on a daily basis. Prior to receiving these injections, the patient was tried on therapy, bracing and oral antispasticity medications without acceptable control of the spasticity. I would like to see Socorro back in 3 months to reinject her with botulinum toxin. The patient will call with any questions prior to her next appointment. Socorro was following with Dr. Barroso, who recently retired. She now will follow with Dr. Hall for the treatment of the MS. She is receiving Ocrevus infusions. She is on Vitamin D supplementation Mental Status Date Cognitive Assessment Normal Orientation Patient Care Teams Name Effective Dates (start - stop) Status Members No Information
--- OUTSIDE RECORDS SUMMARY | 2025-01-19 05:58 | XMS_ITS | Encounter Summary ---
Author Organization [facility] Healthcare Address [address] [place] [address] Care Team Providers Care Enologist Name Role Phone Chuck Looney MD Primary Care Prov ider Encounter Details Date Type Department Care Team (Late st Contact Info) Description 01/18/2025 Orders Only [facility] [address] [place] [id number] Jaiden Hall MD [address] [facility] [address] [place], [place] [id number] Social History Tobacco Use Types Packs/Day Years Used Date Smoking Tobacco: Never Smokeless Tobacco: Never Alcohol Use Standard Drinks/Week Comments No 0 (1 standard drink = 0.6 oz pur e alcohol) Comments No Sex and Gender Information Value Date Recorded Sex Assigned at Not on file 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
--- OUTSIDE RECORDS SUMMARY | 2025-01-19 05:58 | XMS_ITS | Encounter Summary ---
Author Organization [facility] Address 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
--- OUTSIDE RECORDS SUMMARY | 2025-01-19 05:58 | XMS_ITS | Encounter Summary ---
Author Organization [facility] Address [address] [place] [address] Care Team Providers Care Cost Accounting Manager Name Role Phone Chuck Looney MD Primary Care Provider +1- [phone] Encounter Details Date Type Department Care Team (Late st Contact Info) Description 05/18/2007 Outpatient Historical [facility] MRI DEPT Willard Villegas MD [address] [facility] [address] [place] [address] Multiple Sclerosis (CMS/HCC) (Primary Dx) Social History Tobacco Use Types Packs/Day Years Used Date Smoking Tobacco: Never Assessed Comments Unknown Sex and Gender Information Value Date Recorded Sex Assigned at Not on file 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 Gender Identity Not on file Sexual Orientation Not on file documented as of this encounter Plan of Treatment Not on file documented as of this encounter Procedures Procedure Name Priority Date/Time Associated Diagnosis Comments POC CREATININE Routine 05/18/2007 8:10 PM PULLEY MAINTAINER documented in this encounter Results * POC CREATININE (05/18/2007 8:10 PM PULLEY MAINTAINER) CREATININE POC 0.8 0.6 - 1.3 mg/dL INTERFACE SYSTEM 05/18/2007 8:10 PM PULLEY MAINTAINER us Willard Villegas MD POINT OF CARE TESTING Edited INTERFACE SYSTEM Refer to clinic/hospital department documented in this encounter Visit Diagnoses Diagnosis Multiple sclerosis (CMS/HCC)- Primary Multiple sclerosis documented in this encounter Care Teams Cost Accounting Manager Relationship Specialty Start Date End Date Chuck Looney MD PCP - General 02/25/09 documented as of this encounter
--- OUTSIDE RECORDS SUMMARY | 2025-01-19 05:58 | XMS_ITS | Clinical Summary ---
Author Organization [facility] Administrative Offices Address [address] [place] [address] Care Team Providers Care Workforce Planner Name Role Phone Chuck Looney MD Primary Care Provider +1- [phone] Allergies Active Allergy Reactions Criticality Noted Date Comments Codeine Nausea and Vomiting Low 04/20/2013 Sulfa (Sulfonamide Antibiotics) Nausea and Vomiting Low 04/20/2013 Medications pravastatin (PRAVACHOL) 40 mg Oral tablet Take 40 mg by mouth Daily LATE. Active trimethoprim (TRIMPEX) 100 mg tablet 4 Active estradiol (ESTRACE) 1 mg tablet 4 Active medroxyPROGEST ERone (PROVERA) 2.5 mg tablet 4 Active oxybutynin chloride SR 24 hour (DITROPAN XL) 10 mg Tablet Extended Rel 24 hr (2) 4 Active lisinopril (PRINIVIL) 10 mg tablet 4 Active multivitamin (DAILY-EDGARD) tablet Take 1 Tablet by mouth daily. Active cholecalcifero l, Vitamin D3, (VITAMIN D3) 1,000 unit Capsule Take 1,000 Units by mouth daily. Active ACETAMINOPHEN/ DP-HYDRAMINE (EXCEDRIN PM ORAL) Take 2 Tablet by mouth daily. Active Miscellaneous Medical SupplyIndicati ons:Multiple sclerosis (CMS/HCC) Cushion for power wheel chair. 1 Each 7 Active COPAXONE 40 mg/mL SyringeIndicat ions:Multiple sclerosis (CMS/HCC) INJECT 40MG SUBCUTANEOUSLY THREE TIMES PER WEEK EVERY MON, WED, AND FRI. ALLOW SYRINGE TO WARM TO ROOM TEMP FOR 20 MIN. DO NOT EXPEL AIR SARAH 36 Syringe 3 7 Active tiZANidine (ZANAFLEX) 4 mg TabletIndicati ons:Multiple sclerosis (CMS/HCC) TAKE 2 TABLETS AT BEDTIME 180 Tablet 3 7 Active predniSONE (DELTASONE) 10 mg tabletIndicati ons:Multiple sclerosis (CMS/HCC) Take 1 Tablet (10 mg) by mouth daily prednisone 80 mg x 5 days, taper by 10 mg daily 10 mg then stop, total 12 days. - Oral. 68 Tablet 8 Active gabapentin (NEURONTIN) 100 mg capsuleIndicat ions:Multiple sclerosis (CMS/HCC) Take 1 Capsule (100 mg) by mouth 3 times daily. 90 Capsule 3 8 Active gabapentin (NEURONTIN) 250 mg/5 mL (5 mL Cup) Solution solutionIndica tions:Multiple sclerosis (CMS/HCC) Start with 1/4 tsp and if tolerated, take three times a day.. 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 Then switched because of clinical breakthrough disease Copaxone x 11 or so years - 2011 2011 - 2012 - No DMT x one year Gilenya January 25, 2013 - switched to Copaxone Per chart review patient was on MTX 7.5 mg weekly for 6 months in 1998. Copaxone 40 mg TIW September 23, 2013 - present, Encounters Date Type Department Care Team Description 01/16/2025 External Device Data ST[facility] ABSTRACTION Provider, Abstract 12/26/2024 External Device Data STL ABSTRACTION Provider, Abstract 11/22/2024 External Device Data STL ABSTRACTION Provider, Abstract 11/21/2024 External Device Data STL ABSTRACTION Provider, Abstract from Last 3 Months Family History Medical History Relation Name Comments Healthy Daughter 1 Healthy Daughter 2 Hypertension Father Cancer Maternal Grandfather Cancer Maternal Grandmother Heart Disease Mother Cancer Paternal Grandfather Cancer Paternal Grandmother Other Sister 1 Johnna Serra Lupus Relation Name Status Comments Daughter 1 Daughter 2 Father Maternal Grandfather Maternal Grandmother Mother Alive Paternal Grandfather Paternal Grandmother Sister 1 Johnna Serra Alive Sister 2 Ana Laura Young Alive Sister 3 Daisy Davila Alive Social History Tobacco Use Types Packs/Day Years Used Date Smoking Tobacco: Never Smokeless Tobacco: Never Alcohol Use Standard Drinks/Week Comments No 0 (1 standard drink = 0.6 oz pur e alcohol) Comments No Sex and Gender Information Value Date Recorded Sex Assigned at Not on file 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 Gender Identity Not on file Sexual Orientation Not on file Occupation Industry Job Start Date Job End Date Not on file Not on file Not on file Not on file Last Filed Vital Signs Vital Sign Reading Time Taken Comments Blood Pressure 101/78 10/06/2017 1:05 PM CDT Pulse 101 10/06/2017 1:05 PM CDT Temperature - - Respiratory Rate - - Oxygen Saturation - - Inhaled Oxygen Concentration - - Weight 71.7 kg (158 lb) 10/06/2017 1:05 PM CDT Height 157.5 cm (5' 2) 10/06/2017 1:05 PM CDT Body Mass Index 28.9 10/06/2017 1:05 PM CDT Plan of Treatment Health Maintenance Due Date Last Done Comments DTAP/TDAP/TD VACCINES (1 - Tdap) 1975 BREAST CANCER SCREENING 1996 COLORECTAL SCREENING 2001 Colorectal Cancer Screening 2001 FIT-DNA Q 3 years 2001 FIT/FOBT Q 1 year 2001 Flex Sig/CT Colonography Q 5 years 2001 PNEUMOCOCCAL VACCINE 50+ YEARS (1 of 1 - PCV) 05/29/20 06 ZOSTER VACCINE (1 of 2) 2006 RSV VACCINE (60+ or ) (1 - Risk 60-74 years 1-dose series) 2016 OSTEOPOROSIS SCREENING 2021 INFLUENZA VACCINE (#1) 2025 Insurance [facility] FEDERAL MEDICARE PART A AND B Care Teams Workforce Planner Relationship Specialty Start Date End Date Chuck Looney MD PCP - General 02/25/09
[2025-01-19 05:59] VITALS: BP 106/56; PULSE 88; RESP 18; TEMP 36.7; O2SAT 100
--- NOTE | 2025-01-19 07:13 | ED.GENADULT ---
HPI - General Adult General Chief complaint: Extremity Injury, Upper Stated complaint: R arm injury Time Seen by Provider: 01/19/25 07:02 History of Present Illness HPI narrative: This is a 69-year-old female with history of MS with right upper extremity contractures presenting for right upper arm pain. Her was moving her from her wheelchair into a walker when she slipped in her contracted right arm was extended against her contracture. She now has pain and some bruising the bicep. Patient has essentially no function of her right arm and is contracted flexion at the elbow and extension at the wrist. No other areas of pain. Patient sees a spasticity specialist. Related Data Home Medications ?Medication ?Instructions ?Recorded ?Confirmed ?Last Taken ?Type cholecalciferol (vitamin D3) 25 25 mcg PO DAILY 09/24/21 10/31/24 Unknown History mcg (1,000 unit) capsule dalfampridine 10 mg 10 mg PO Q12H 09/24/21 10/31/24 Unknown History tablet,extended release,12 hr gabapentin 100 mg capsule 200 mg PO QHS 09/24/21 10/31/24 Unknown History multivitamin (Multiple Vitamins 1 tablet PO DAILY 09/24/21 10/31/24 Unknown History tablet) oxybutynin chloride 10 mg 20 mg PO DAILY 09/24/21 10/31/24 Unknown History tablet,extended release 24 hr tizanidine 4 mg capsule 8 mg PO QHS PRN Muscle Spasm 09/24/21 10/31/24 Unknown History docusate sodium 100 mg capsule 100 mg PO DAILY PRN constipation 07/16/23 10/31/24 Unknown History (Colace) polyethylene glycol 3350 17 17 g PO BID 07/16/23 10/31/24 Unknown History gram/dose oral powder (Miralax) venlafaxine 150 mg tablet,extended 150 mg PO DAILY 10/31/24 10/31/24 Unknown History release 24 hr Allergies Allergy/AdvReac Type Severity Reaction Status Date / Time codeine Allergy Mild Nausea and Verified 01/19/25 06:17 Vomiting Sulfa (Sulfonamide Allergy Mild Nausea and Verified 01/19/25 06:17 Antibiotics) Vomiting PMFSH Past Medical History Medical History (Updated 01/19/25 @ 07:26 by Johnny Amanda MD) Depression Neurogenic bladder Hypercholesterolemia Kidney stones Melanoma Hypertension Multiple sclerosis Surgical History Surgical History History of lithotripsy History of cystoscopy Family History Family History Grandparent Breast cancer Mother Heart disease Hypertension Father Heart disease Hypertension Social History Social History Social History: Surrogate decision maker: Breana Taylor, daughter. Code status: Full code. Smoking status: Never smoker Second hand tobacco smoke exposure: No Alcohol intake: never Substance use: never Substance use type: does not use Living arrangements: with family Occupation/Education: unemployed Spiritual care concerns: No Agree to blood products: Yes Exam Narrative: APPEARANCE: No apparent distress. Head: atraumatic. EYES: EOMI, NOSE: Atraumatic NECK: Trachea midline RESPIRATORY: No increased rate of breathing CTAB CARDIOVASCULAR: RRR, ABDOMINAL: Non-distended MUSCULOSKELETAl: Focal exam of the right upper extremity showed a contracted limb with flexion at the elbow extension at the wrist. No ability to associate accountant. Pulses are intact. Mild bruising over biceps. Tenderness over the humeral head NEURO: Alert. Severe contractures right upper extremity with no functional movement, paralysis of the lower extremities. Left arm is fully functional SKIN:: Warm, dry. Normal color PSYCHIATRIC: Normal affect Course Vital Signs Vital signs: Vital Signs Temperature 98.1 F 01/19/25 05:59 Pulse Rate 88 01/19/25 05:59 Respiratory Rate 18 01/19/25 05:59 Blood Pressure 106/56 L 01/19/25 05:59 Pulse Oximetry 100 01/19/25 05:59 Oxygen Delivery Room Air 01/19/25 05:59 Temperature 98.1 F 01/19/25 05:59 Pulse Rate 88 01/19/25 05:59 Respiratory Rate 18 01/19/25 05:59 Blood Pressure 106/56 L 01/19/25 05:59 Pulse Oximetry 100 01/19/25 05:59 Oxygen Delivery Room Air 01/19/25 05:59 Medical Decision Making MDM Narrative Medical decision making narrative: -Course: 69-year-old female with MS and right upper extremity contractures presenting with right arm pain. Physical exam showed a contracted nonfunctional right upper extremity with some mild bruising over the biceps. X-rays showed a nondisplaced humeral neck fracture. Patient placed in a sling. Patient already has severely limited mobility due to her MS. I discussed this with her . They are already at [facility]. She does not want to be placed high level care if they are able to manage without help. They are going to attempt to do this on their own although they are instructed to either contact [facility] or return to the ED if they finding her pain is too difficult with her limited mobility. -DDX includes but is not limited to: Muscle strain, bony injury -Co-morbidities complicating care: MS with spasticity Vital Signs Vital Signs: Vital Signs Temperature 98.1 F 01/19/25 05:59 Pulse Rate 88 01/19/25 05:59 Respiratory Rate 18 01/19/25 05:59 Blood Pressure 106/56 L 01/19/25 05:59 Pulse Oximetry 100 01/19/25 05:59 Oxygen Delivery Room Air 01/19/25 05:59 Temperature 98.1 F 01/19/25 05:59 Pulse Rate 88 01/19/25 05:59 Respiratory Rate 18 01/19/25 05:59 Blood Pressure 106/56 L 01/19/25 05:59 Pulse Oximetry 100 01/19/25 05:59 Oxygen Delivery Room Air 01/19/25 05:59 Discharge Plan Discharge Clinical Impression: Fracture of neck of humerus Patient Disposition: Home Condition: Stable Instructions: Antibiotic Form, Arm Fracture in Adults (ED), How to Use a Sling (ED) Additional Instructions: He was seen emergency department for arm pain. You have a humeral neck fracture. Please keep your arm in a sling for comfort. Please follow-up with the orthopedic surgeon listed below. Use Motrin Tylenol and Robaxin for pain control. If you develop any new or worsening symptoms, or feel you are not capable of getting around at home with your new injury please return to the emergency department. Patient Language: Sri Lankan Prescriptions: New ibuprofen 800 mg tablet 800 mg PO TID PRN (Reason: pain) 7 Days Qty: 21 0RF acetaminophen 500 mg tablet 1,000 mg PO TID PRN (Reason: gomez) 7 Days Qty: 42 0RF methocarbamol 750 mg tablet 1,500 mg PO TID Qty: 42 0RF No Action multivitamin [Multiple Vitamins] Tablet 1 tablet PO DAILY dalfampridine 10 mg tablet extended release 12 hr 10 mg PO Q12H cholecalciferol (vitamin D3) 25 mcg (1,000 unit) capsule 25 mcg PO DAILY gabapentin 100 mg capsule 200 mg PO QHS oxybutynin chloride 10 mg tablet extended release 24hr 20 mg PO DAILY tizanidine 4 mg capsule 8 mg PO QHS PRN (Reason: Muscle Spasm) polyethylene glycol 3350 [Miralax] 17 gram/dose powder 17 g PO BID docusate sodium [Colace] 100 mg capsule 100 mg PO DAILY PRN (Reason: constipation) venlafaxine 150 mg tablet extended release 24hr 150 mg PO DAILY lisinopril 20 mg tablet See Rx Instructions .ROUTE .COMPLEX Qty: 90 3RF Dose Instruction: Take 1 tablet by mouth once daily Rx Instructions: Take 1 tablet by mouth once daily pravastatin 20 mg tablet See Rx Instructions .ROUTE .COMPLEX Qty: 90 3RF Dose Instruction: Take 1 tablet by mouth once daily Rx Instructions: Take 1 tablet by mouth once daily Follow-up/Referrals: Ernst Reynaga MD [Physician] - 1 Week Chuck Looney MD [Primary Care Provider] -
--- OUTSIDE RECORDS SUMMARY | 2025-01-19 07:24 | XMS_ITS | Encounter Summary ---
Author Organization [facility] Address [address] [place] [address] Care Team Providers Care Network Control Supervisor Name Role Phone Chuck Looney MD Primary Care Provider +1- [phone] Encounter Details Date Type Department Care Team (Late st Contact Info) Description 10/11/2003 Outpatient Historical Division of Neurology 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
--- OUTSIDE RECORDS SUMMARY | 2025-01-19 07:24 | XMS_ITS | Encounter Summary ---
Author Organization [facility] Address [address] [place] [address] Care Team Providers Care Parish Visitor Name Role Phone Chuck Looney MD Primary Care Provider +1- [phone] Encounter Details Date Type Department Care Team (Late st Contact Info) Description 02/19/2005 Outpatient Historical Division of Neurology 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
--- OUTSIDE RECORDS SUMMARY | 2025-01-19 07:24 | XMS_ITS | Encounter Summary ---
Author Organization [facility] Healthcare Address [address] [place] [address] Care Team Providers Care Wood Cut Engraver Name Role Phone Chuck Looney MD Primary Care Prov ider Encounter Details Date Type Department Care Team (Late st Contact Info) Description 01/18/2025 Orders Only [facility] MS Infusion Center [address] [facility] [address] [place] [id number] Jaiden Hall MD [address] [facility] [address] [place], [place] [id number] Social History Tobacco Use Types Packs/Day Years Used Date Smoking Tobacco: Never Smokeless Tobacco: Never Alcohol Use Standard Drinks/Week Comments No 0 (1 standard drink = 0.6 oz pur e alcohol) Comments No Sex and Gender Information Value Date Recorded Sex Assigned at Not on file 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
--- OUTSIDE RECORDS SUMMARY | 2025-01-19 07:24 | XMS_ITS | Encounter Summary ---
Author Organization [facility] Address [address] [place] [address] Care Team Providers Care [place]plands Division Director Name Role Phone Chuck Looney MD Primary Care Provider +1- [phone] Encounter Details Date Type Department Care Team (Late st Contact Info) Description 09/10/2005 Outpatient Historical Division of Neurology 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
--- OUTSIDE RECORDS SUMMARY | 2025-01-19 07:24 | XMS_ITS | Continuity of Care Document ---
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 [address], [place], [place], [id number] . tel: [phone] [facility], [place], [address], [facility] Spasticity secondary to MS (chief complaint) Multiple sclerosisCerv ical dystoniaSpast ic neurogenic bladdersNeuro genic bowelNeuropat hic painWheelchai r dependenceBod y mass index [BMI] 28.0-28.9, adult 5 Keaton Medrano. [address], [place], [place], [id number] . tel: [phone] [facility], [place], [address], [facility] Spasticity secondary to MS (chief complaint) Multiple sclerosisCerv ical dystoniaSpast ic neurogenic bladdersNeuro genic bowelNeuropat hic painWheelchai r dependenceBod y mass index [BMI] 28.0-28.9, adult 4 Keaton Medrano. [address], [place], [place], [id number] . tel: [phone] [facility], [place], [address], [facility] Spasticity secondary to MS (chief complaint) Multiple sclerosisCerv ical dystoniaSpast ic neurogenic bladdersNeuro genic bowelNeuropat hic painBody mass index [BMI] 28.0-28.9, adultWheelcha ir dependence 4 Keaton Medrano. [address], [place], [place], [address] . tel: [phone] [facility], [place], [address], [facility] Spasticity due to MS (chief complaint) Multiple sclerosisCerv ical dystoniaWheel chair dependenceBod y mass index [BMI] 28.0-28.9, adultSpastic neurogenic bladdersNeuro genic bowelNeuropat hic pain 4 Keaton Medrano. [address], [place], [place], [address] . tel: [phone] OFFICE/OUTPAT IENT VISIT EST [facility], [place], [address], [facility] Spasticity secondary to MS (chief complaint) Multiple sclerosisCerv ical dystoniaWheel chair dependenceBod y mass index [BMI] 28.0-28.9, adult 4 Keaton Medrano. [address], [place], [place], [address] . tel: [phone] [facility], [place], [address], [facility] Spasticity secondary to MS (chief complaint) Multiple sclerosisCerv ical dystoniaWheel chair dependenceBod y mass index [BMI] 28.0-28.9, adult 3 Keaton Medrano. [address], [place], [place], [address] . tel: [phone] [facility], [place], [address], [facility] Spasticity secondary to MS (chief complaint) Body mass index [BMI] 28.0-28.9, adultMultiple sclerosisCerv ical dystoniaWheel chair dependence 3 Keaton Medrano. [address], [place], [place], [id number] . tel: [phone] [facility], [place], [address], [facility] Spasticity secondary to MS (chief complaint) Body mass index [BMI] 28.0-28.9, adultCervical dystoniaMulti ple sclerosisWhee lchair dependence 3 Keaton Medrano. [address], [place], [place], [id number] . tel: [phone] [facility], [place], [address], [facility] Spasticity secondary to MS (chief complaint) Body mass index [BMI] 28.0-28.9, adultMultiple sclerosisCerv ical dystoniaWheel chair dependence 3 Keaton Medrano. [address], [place], [place], [address] . tel: [phone] OFFICE/OUTPAT IENT VISIT EST [facility], [place], [address], [facility] Spasticity secondary to MS (chief complaint) Body mass index [BMI] 28.0-28.9, adultMultiple sclerosisCerv ical dystoniaWheel chair dependence 2 Keaton Medrano. [address], [place], [place], [id number] . tel: [phone] [facility], [place], [address], [facility] Spasticity secondary to MS (chief complaint) Body mass index [BMI] 28.0-28.9, adultCervical dystoniaMulti ple sclerosisWhee lchair dependence 2 Keaton Medrano. [address], [place], [place], [address] . tel: [phone] [facility], [place], [address], [facility] Spasticity secondary to MS (chief complaint) Body mass index [BMI] 28.0-28.9, adultCervical dystoniaMulti ple sclerosisWhee lchair dependenceSpa stic neurogenic bladders 2 Keaton Medrano. [address], [place], [place], [address] . tel: [phone] [facility], [place], [place], [facility], [facility] Spasticity secondary to MS (chief complaint) Multiple sclerosisCerv ical dystoniaSpast ic neurogenic bladdersNeuro genic bowelNeuropat hic painWheelchai r dependenceBod y mass index [BMI] 28.0-28.9, adult Aug- 2 Keaton Medrano. [address], [place], [place], [address] . tel: [phone] [facility], [place], [address], [facility] Spasticity secondary to MS (chief complaint) Body mass index [BMI] 28.0-28.9, adultMultiple sclerosisCerv ical dystoniaSpast ic neurogenic bladdersNeuro genic bowelNeuropat hic painWheelchai r dependence Nov- 1 Keaton Medrano. [address], [place], [place], [address] . tel: [phone] [facility], [place], [address], [facility] Follow Up of Spasticity secondary to MS (chief complaint) Body mass index [BMI] 28.0-28.9, adultMultiple sclerosisSpas tic neurogenic bladdersNeuro genic bowelNeuropat hic painWheelchai r dependenceCer vical dystonia Jan- 1 Keaton Medrano. [address], [place], [place], [address] . tel: [phone] [facility], [place], [address], [facility] Follow Up of Spasticity secondary to MS (chief complaint) Body mass index [BMI] 28.0-28.9, adultMultiple sclerosisSpas tic neurogenic bladdersNeuro genic bowelNeuropat hic painWheelchai r dependenceCer vical dystonia Apr-0 1 Keaton Medrano. [address], [place], [place], [address] . tel: [phone] [facility], [place], [address], [facility] Follow Up of Spasticity secondary to MS (chief complaint) Body mass index [BMI] 28.0-28.9, adultMultiple sclerosisSpas tic neurogenic bladdersNeuro genic bowelNeuropat hic painWheelchai r dependenceCer vical dystonia Dec-3 0 Keaton Medrano. [address], [place], [place], [address] . tel: [phone] [facility], [place], [address], [facility] Follow Up of Spasticity secondary to MS (chief complaint) Multiple sclerosisSpas tic neurogenic bladdersNeuro genic bowelNeuropat hic painWheelchai r dependenceCer vical dystoniaTremo rs of nervous systemHistory of hypertensionD epression due to multiple sclerosisHist ory of hypercholeste rolemiaBody mass index [BMI] 28.0-28.9, adult 0 Keaton Medrano. [address], [place], [place], [address] . tel: [phone] [facility], [place], [place], [facility], [facility] Follow Up of spasticity secondary to MS (chief complaint) Multiple sclerosisSpas tic neurogenic bladdersNeuro genic bowelNeuropat hic painWheelchai r dependenceCer vical dystoniaTremo rs of nervous systemHistory of hypertensionD epression due to multiple sclerosisHist ory of hypercholeste rolemia 0 Keaton eMdrano. [address], [place], [place], [address] . tel: [phone] [facility], [place], [facility], [facility] Follow Up of spasticity secondary to MS (chief complaint) Body mass index (BMI) 28.0-28.9, adultMultiple sclerosisSpas tic neurogenic bladdersNeuro genic bowelNeuropat hic painWheelchai r dependenceCer vical dystonia 0 Keaton Medrano. [address], [place], [place], [address] . tel: [phone] [facility], [place], [facility], [facility] Follow Up of spasticity secondary to MS (chief complaint) Body mass index (BMI) 29.0-29.9, adultMultiple sclerosisCerv ical dystoniaSpast ic neurogenic bladdersNeuro genic bowelNeuropat hic painWheelchai r dependence Dec-1 1-201 9 Keaton Medrano. [address], [place], [place], [address] . tel: [phone] [facility], [place], [address], [facility] Follow Up of spasticity secondary to MS (chief complaint) Multiple sclerosisCerv ical dystoniaSpast ic neurogenic bladdersNeuro genic bowelNeuropat hic painWheelchai r dependenceBod y mass index (BMI) 29.0-29.9, adult Sep-0 - 9 Keaton Medrano. [address], [place], [place], [address] . tel: [phone] [facility], [place], [address], [facility] Follow Up of spasticity secondary to MS (chief complaint) Body mass index (BMI) 29.0-29.9, adultSpastic neurogenic bladdersNeuro pathic painHistory of hypertensionW heelchair dependenceCer vical dystoniaTremo rs of nervous systemMultipl e sclerosis 9 Keaton Medrano. [address], [place], [place], [address] . tel: [phone] [facility], [place], [address], [facility] Follow Up of spasticity secondary to MS (chief complaint) Body mass index (BMI) 29.0-29.9, adultSpastic neurogenic bladdersNeuro pathic painNeurogeni c bowelHistory of hypertensionW heelchair dependenceCer vical dystoniaMulti ple sclerosis 9 Keaton Medrano. [address], [place], [place], [address] . tel: [phone] OFFICE/OUTPAT IENT VISIT EST [facility], [place], [address], [facility] Follow Up of Spasticity secondary to MS (chief complaint) Body mass index (BMI) 28.0-28.9, adultMultiple sclerosisHist ory of hypertensionN europathic painNeurogeni c bowelSpastic neurogenic bladdersTremo rs of nervous systemWheelch air dependenceCer vical dystonia 8 Keaton Medrano. [address], [place], [place], [address] . tel: [phone] [facility], [place], [address], [facility] Follow Up of spasticity secondary to MS (chief complaint) Body mass index (BMI) 28.0-28.9, adultMultiple sclerosisDepr ession due to multiple sclerosisHist ory of hypercholeste rolemiaHistor y of hypertensionN europathic painNeurogeni c bowelSpastic neurogenic bladdersTremo rs of nervous systemWheelch air dependenceCer vical dystonia 8 Keaton Medrano. [address], [place], [place], [address] . tel: [phone] OFFICE CONSULTATION [facility], [place], [address], [facility] MS (chief complaint) Body mass index (BMI) 28.0-28.9, adultWheelcha ir dependenceTre mors of nervous systemSpastic itySpastic neurogenic bladdersNeuro genic bowelNeuropat hic painDepressio n due to multiple sclerosisMult iple sclerosisHist ory of hypercholeste rolemiaHistor y of hypertension 8 Keaton Medrano. [address], [place], [place], [address] . tel: [phone] Referring Provider: Mabel Barroso [address], [place], [address]. tel:[phone] Family History Family Member Type Diagnosis Age At Onset Daughter Problem (finding) multiple sclerosis Daughter Problem (finding) Headaches Daughter Problem (finding) Thyroid disorder Mother Problem (finding) hypertension Father Problem (finding) hypertension Sister Problem (finding) Lupus erythematosus Payers Payer name Insurance type Covered alliance party ID Authoriza tion(s) Medicare E2 OT [id number] [facility] E2 OT [id number] Social History Type Description Quantity Date Captured [...] move to an independent living facility in [facility] and are selling the home where they [...] She is agreeable for us to contact [facility] to have the wheelchair repaired. Reason For [...] treat ordered Referral Referred To: Trinity Hodgson [address] [place] [address], [phone] Ordered: Referrals: Trinity Hodgson. Evaluate and treat [...] move to an independent living facility in [facility] and are selling the home where they [...] She is agreeable for us to contact [facility] to have the wheelchair repaired. Spasticity secondary [...] me that she just got back from [facility], where they own a time share. She says that on their drive to [place] the bolt that holds the chair in [...] with me reaching out to her vendor, [employer], you have the wheelchair assessed. Spasticity secondary [...] her are going on a trip to [place] at [employer]. Spasticity secondary to MS Socorro is being [...] beginning of December and was admitted to [facility] for 5 days. Spasticity secondary to MS [...] that she is planning a trip to [place] this December. Follow Up of Spastic ity [...] but would like orders to return to [facility] after this injection cycle. Socorro had Botox [...] tells me [facility]. Her current [...] was referred to Dr. Del Castillo at [facility] and was diagnosed with MS. Socorro transferred care to Dr. Villegas at [facility], who she saw for many years. She [...] has switched care to Dr. Barroso at [facility]. The patient tells me that her last [...] continue light stretching Related to Multiple sclerosis Start therapy after 2 weeks Rela fitz to Multiple sclerosis Giving encouragement to exercise [...] to Body mass index (BMI) 29.0-29.9, adult Please continue light stretching Related to Cervical dystonia Giving encouragement to [...] her power wheelchair. 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
--- OUTSIDE RECORDS SUMMARY | 2025-01-19 07:24 | XMS_ITS | Encounter Summary ---
Author Organization [facility] Address [address] [place] [address] Care Team Providers Care Solar Energy Systems Designer Name Role Phone Chuck Looney MD Primary Care Provider [phone]- [phone] Encounter Details Date Type Department Care Team (Late st Contact Info) Description 07/21/1999 Outpatient Historical Division of Neurology 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
--- OUTSIDE RECORDS SUMMARY | 2025-01-19 07:24 | XMS_ITS | Encounter Summary ---
Author Organization [facility] Address [address] [place] [address] Care Team Providers Care Interventional Pain Physician Name Role Phone Chuck Looney MD Primary Care Provider +1- [phone] Encounter Details Date Type Department Care Team (Latest Contact Info) Description 08/05/[address] [facility] Willard Gillespie MD [address] [facility] [address] [place] [address] Multiple sclerosis (CMS/HCC) (Primary Dx) Social History Tobacco Use Types Packs/Day Years Used Date Smoking Tobacco: Never Assessed Comments Unknown Sex and Gender Information Value Date Recorded Sex Assigned at Not on file Legal Sex Female 2:59 AM ROVING MARKER Gender Identity Not on file Sexual Orientation Not on file documented as of this encounter Plan of Treatment Not on file documented as of this encounter Visit Diagnoses Diagnosis Multiple sclerosis (CMS/HCC)- Primary Multiple sclerosis documented in this encounter Care Teams Interventional Pain Physician Relationship Specialty Start Date End Date Chuck Looney MD PCP - General 02/25/09 documented as of this encounter
--- OUTSIDE RECORDS SUMMARY | 2025-01-19 07:24 | XMS_ITS | Encounter Summary ---
Author Organization [facility] Address [address] [place] [address] Care Team Providers Care Hat Forming Machine Feeder Name Role Phone Chuck Looney MD Primary Care Provider +1- [phone] Encounter Details Date Type Department Care Team (Late st Contact Info) Description 10/25/2003 Outpatient Historical HIS [facility] Willard Villegas MD [address] [facility] [address] [place] [address] MULTIPLE SCLEROSIS (CMS/HCC) (Primary Dx) Social History Tobacco Use Types Packs/Day Years Used Date Smoking Tobacco: Never Assessed Comments Unknown Sex and Gender Information Value Date Recorded Sex Assigned at Not on file Legal 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
--- OUTSIDE RECORDS SUMMARY | 2025-01-19 07:24 | XMS_ITS | Encounter Summary ---
Author Organization [facility] Address [address] [place] [address] Care Team Providers Care Pilling Machine Operator Name Role Phone Chuck Looney MD Primary Care Provider +1- [phone] Encounter Details Date Type Department Care Team (Late st Contact Info) Description 03/23/2007 Outpatient Historical Division of Neurology 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
--- OUTSIDE RECORDS SUMMARY | 2025-01-19 07:24 | XMS_ITS | Encounter Summary ---
Author Organization [facility] Address [address] [place] [address] Care Team Providers Care Facility Manager Histology Name Role Phone Chuck Looney MD Primary Care Provider +1- [phone] Encounter Details Date Type Department Care Team (Latest Contact Info) Description 09/26/1998 Outpatient Historical HIS [facility] Willard Gillespie MD [address] [facility] [address] [place] [address] Multiple sclerosis (CMS/HCC) (Primary Dx) Social History Tobacco Use Types Packs/Day Years Used Date Smoking Tobacco: Never Assessed Comments Unknown Sex and Gender Information Value Date Recorded Sex Assigned at Not on file Legal Sex Female 2:59 AM CVICU RN Gender Identity Not on file Sexual Orientation Not on file documented as of this encounter Plan of Treatment Not on file documented as of this encounter Visit Diagnoses Diagnosis Multiple sclerosis (CMS/HCC)- Primary Multiple sclerosis documented in this encounter Care Teams Facility Manager Histology Relationship Specialty Start Date End Date Chuck Looney MD PCP - General 02/25/09 documented as of this encounter
--- OUTSIDE RECORDS SUMMARY | 2025-01-19 07:24 | XMS_ITS | Encounter Summary ---
Author Organization [facility] Address [address] [place] [address] Care Team Providers Care Glass Frame Fitter Name Role Phone Chuck Looney MD Primary Care Provider +1- [phone] Encounter Details Date Type Department Care Team (Latest Contact Info) Description 04/14/1999 Outpatient Historical HIS [facility] Willard Gillespie MD [address] [facility] [address] [place] [address] Multiple sclerosis (CMS/HCC) (Primary Dx) Social History Tobacco Use Types Packs/Day Years Used Date Smoking Tobacco: Never Assessed Comments Unknown Sex and Gender Information Value Date Recorded Sex Assigned at Not on file Legal Sex Female 2:59 AM OFFAL TRIMMER Gender Identity Not on file Sexual Orientation Not on file documented as of this encounter Plan of Treatment Not on file documented as of this encounter Visit Diagnoses Diagnosis Multiple sclerosis (CMS/HCC)- Primary Multiple sclerosis documented in this encounter Care Teams Glass Frame Fitter Relationship Specialty Start Date End Date Chuck Looney MD PCP - General 02/25/09 documented as of this encounter
--- OUTSIDE RECORDS SUMMARY | 2025-01-19 07:24 | XMS_ITS | Encounter Summary ---
Author Organization [facility] Address [address] [place] [address] Care Team Providers Care Tester Regulator Name Role Phone Chuck Looney MD Primary Care Provider +1- [phone] Encounter Details Date Type Department Care Team (Late st Contact Info) Description 08/21/2004 Outpatient Historical Division of Neurology [address] [address] Willard Villegas MD [address] [place] [address] Social History Tobacco Use Types Packs/Day Years Used Date Smoking Tobacco: Never Assessed Comments Unknown Sex and Gender Information Value Date Recorded Sex Assigned at Not on file Legal Sex Female 2:59 AM ASL INTERPRETER Gender Identity Not on file Sexual Orientation Not on file documented as of this encounter Plan of Treatment Not on file documented as of this encounter Visit Diagnoses Not on filedocumented in this encounter Care Teams Tester Regulator Relationship Specialty Start Date End Date Chuck Looney MD PCP - General 02/25/09 documented as of this encounter
--- OUTSIDE RECORDS SUMMARY | 2025-01-19 07:24 | XMS_ITS | Encounter Summary ---
Author Organization [email or web address] Address [address] [place] [address] Care Team Providers Care Channel Account Manager Name Role Phone Chuck Looney MD Primary Care Provider +1- [phone] Encounter Details Date Type Department Care Team (Late st Contact Info) Description 05/12/2001 Outpatient Historical Division of Neurology 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
--- OUTSIDE RECORDS SUMMARY | 2025-01-19 07:24 | XMS_ITS | Encounter Summary ---
Author Organization [facility] Address [address] [place] [address] Care Team Providers Care Switch Box Installer Name Role Phone Chuck Looney MD Primary Care Provider +1- [phone] Encounter Details Date Type Department Care Team (Late st Contact Info) Description 01/10/2003 Outpatient Historical [facility] Willard Villegas MD [address] [facility] [address] [place] [address] MULTIPLE SCLEROSIS (CMS/HCC) (Primary Dx) Social History Tobacco Use Types Packs/Day Years Used Date Smoking Tobacco: Never Assessed Comments Unknown Sex and Gender Information Value Date Recorded Sex Assigned at Not on file Legal Sex Female 2: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
--- OUTSIDE RECORDS SUMMARY | 2025-01-19 07:24 | XMS_ITS | Encounter Summary ---
Author Organization [facility] Address [address] [place] [address] Care Team Providers Care Charge Aide Name Role Phone Chuck Looney MD Primary Care Provider +1- [phone] Encounter Details Date Type Department Care Team (Late st Contact Info) Description 09/15/2006 Outpatient Historical Division of Neurology 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
--- OUTSIDE RECORDS SUMMARY | 2025-01-19 07:24 | XMS_ITS | Encounter Summary ---
Author Organization [facility] Address [address] [place] [address] Care Team Providers Care Motor Equipment Captain Name Role Phone Chuck Looney MD Primary Care Provider +1- [phone] Encounter Details Date Type Department Care Team (Late st Contact Info) Description 07/10/2002 Outpatient Historical Division of Neurology 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
--- OUTSIDE RECORDS SUMMARY | 2025-01-19 07:24 | XMS_ITS | Encounter Summary ---
Author Organization [facility] Address [address] [place] [address] Care Team Providers Care Hand Stone Polisher Name Role Phone Chuck Looney MD Primary Care Provider +1- [phone] Encounter Details Date Type Department Care Team (Late st Contact Info) Description 06/24/2001 Outpatient Historical HIS MRI DEPT Willard Villegas MD [address] [facility] [address] [place] [address] MULTIPLE SCLEROSIS (CMS/HCC) (Primary Dx) Social History Tobacco Use Types Packs/Day Years Used Date Smoking Tobacco: Never Assessed Comments Unknown Sex and Gender Information Value Date Recorded Sex Assigned at Not on file Legal Sex Female 2:59 AM MANAGER SQL Gender Identity Not on file Sexual Orientation Not on file documented as of this encounter Plan of Treatment Not on file documented as of this encounter Visit Diagnoses Diagnosis Multiple sclerosis (CMS/HCC)- Primary Multiple sclerosis documented in this encounter Care Teams Hand Stone Polisher Relationship Specialty Start Date End Date Chuck Looney MD PCP - General 02/25/09 documented as of this encounter
--- OUTSIDE RECORDS SUMMARY | 2025-01-19 07:24 | XMS_ITS | Encounter Summary ---
Author Organization [facility] Address [address] [place] [address] Care Team Providers Care Cotton Header Name Role Phone Chuck Looney MD Primary Care Provider +1- [phone] Encounter Details Date Type Department Care Team (Late st Contact Info) Description 03/04/2000 Outpatient Historical Division of Neurology 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
--- OUTSIDE RECORDS SUMMARY | 2025-01-19 07:24 | XMS_ITS | Referral Summary ---
Author Organization [facility] Address [address] [place] [address] Care Team Providers Care Numerical Control Router Operator Name Role Phone Chuck Looney MD Primary Care Prov ider Encounters Date Type Department Care Team Description 01/18/[address] [facility] [address] [place] [address] Jaiden Hall MD 01/15/[address] [facility] [address] [place] [address] [address], [place] [address] Rachell Martinez RN 01/09/2025 Telephone [facility] [address] [place] [address] Kevin Bradford Re-Start (No Prior Auth Required) 01/08/2025 Orders Only [facility] [address] [place] [address] Jaiden Hall MD Multiple sclerosis (HCC) (Primary Dx); High risk medication use 01/04/2025 11:20 AM CDT Lab [address] [address] Screening for viral disease; Multiple sclerosis (HCC); Vitamin D deficiency 01/04/2025 10:00 AM CDT Office Visit [facility] [address] [address] Jaiden Hall MD Multiple sclerosis [...] 180 tablet 3 01/16/20 25 Active Hypodermic Wright 18 gauge x 1 1/2 needle FOR [...] bowel 12/04/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 Betaseron: [id number] 2. Methotrexate: 1998 x 6 months 3. Copaxone: x 10 years 4. Gilenya: 1 year 5. Copaxone: 2631-0891 6. Ocrevus: 01/2018-07/15/2023 Per chart review patient [...] and would look to transfer to a jail at that time. 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 Immunoglobulin M 64 40 - 230 mg/dL [facility] Blood 01/04/2025 11:2 8 AM CDT 01/04/2025 12:48 PM CDT Jaiden Hall MD LAB BLOOD ORDERABLES Final Result [facility] [address] [employer] [place], [place] [id number] * eGFR (01/04/2025 11:28 AM CDT) [facility] eGFR >90 >=60 mL/min/1. 73 m2 [...] Hall MD LAB BLOOD ORDERABLES Final Result [facility] [address] Department [place] [address] * Differential, auto (01/04/2025 11:28 AM CDT) Neutrophil abs 4.93 1.50 - 6.50 K/cumm Imm gran abs 0.01 0.00 - 0.10 K/cumm [facility] Lymphocyte abs 1.91 0.80 - 3.30 K/cumm [facility] Monocyte abs 0.64 0.20 - 0.80 K/cumm [facility] Eosinophil abs 0.19 0.00 - 0.50 K/cumm [facility] Basophil abs 0.06 0.00 - 0.10 K/cumm [facility] Neutrophil pct 63.6 % [facility] Comment: Interpretive Data Percent cell count reference ranges are not reported, since discordance with absolute values may lead to misinterpretation of CBC data. Current Interpretive Data was last revised on 2017. Imm gran pct 0.1 % [facility] Comment: Interpretive Data Percent cell count reference ranges are not reported, since discordance with absolute values may lead to misinterpretation of CBC data. Current Interpretive Data was last revised on 2017. Lymphocyte pct 24.7 % [facility] Comment: Interpretive Data Percent cell count reference ranges are not reported, since discordance with absolute values may lead to misinterpretation of CBC data. Current Interpretive Data was last revised on 2017. Monocyte pct 8.3 % [facility] Comment: Interpretive Data Percent cell count reference ranges are not reported, since discordance with absolute values may lead to misinterpretation of CBC data. Current Interpretive Data was last revised on 2017. Eosinophil pct 2.5 % [facility] Comment: Interpretive Data Percent cell count reference ranges are not reported, since discordance with absolute values may lead to misinterpretation of CBC data. Current Interpretive Data was last revised on 2017. Basophil pct 0.8 % [facility] Comment: Interpretive Data Percent cell count reference ranges are not reported, since discordance with absolute values may lead to misinterpretation of CBC data. Current Interpretive Data was last revised on 2017. Blood 01/04/2025 11:2 8 AM CDT 01/04/2025 12:48 PM CDT us Jaiden Hall MD LAB BLOOD ORDERABLES Final Result [facility] [address] Department [place] [address] * Immune competence (01/04/2025 11:28 AM CDT) CD3 pct 79 60 - 88 % Comment:Testing performed by : [facility], [address] [place]., [address] CD3 Absolute 1,369 661 - 1,963 cells/mcL [facility] Comment:Testing performed by : [facility], [address] [facility], [address] CD4 pct 58 31 - 64 % [facility] Comment:Testing performed by : [facility], [address] [place] [address], [address] CD4 Absolute 988 365 - 1,294 cells/mcL [facility] Comment:Testing performed by : [facility], [address] [facility], [address] CD8 pct 22 12 - 40 % [facility] Comment:Testing performed by : [facility], [address] [place]., [address] CD8 Absolute 367 187 - 781 cells/mcL [facility] Comment:Testing performed by : [facility], [address] [place] [address]., [address] CD19 pct 10 6 - 25 % [facility] Comment:Testing performed by : [facility], [address] [place] [address]., [address] CD19 Absolute 178 86 - 488 cells/mcL [facility] Comment:Testing performed by : [facility], [address] [place] [address], [address] [id number] pct 11 5 - 25 % [facility] Comment:Testing performed by : [facility], [address] [facility], [place]., [address] [id number] Absolute 203 76 - 467 cells/mcL [facility] Comment:Testing performed by : [facility], [address] [place]., [address] CD4/CD8 ratio 2.6 [facility] Comment:Testing performed by : [facility], [address] [place]., [address] Blood 01/04/2025 11:2 8 AM CDT 01/04/2025 5:21 PM CDT Jaiden Hall MD LAB BLOOD ORDERABLES Final Result Performing Organization Address City/[facility] Co de Phone Number [facility] [address] Department [place] [address] * CBC with auto differential (01/04/2025 11:28 AM CDT) WBC 7.74 3.80 - 9.90 K/cumm Hgb 13.9 11.9 - 15.5 g/dL [facility] Hct 41.8 35.6 - 45.5 % [facility] Plt 305 150 - 400 K/cumm [facility] MPV 9.9 9.1 - 12.[address] [facility] RBC 4.57 3.90 - 5.20 M/cumm [facility] MCV 91.5 81.3 - 96.[address] [facility] MCH 30.4 27.1 - 33.[address] [facility] MCHC 33.3 32.3 - 35.7 g/dL [facility] RDW CV 12.6 11.1 - 14.9 % [facility] RDW SD 41.7 35.7 - 48.[address] [facility] NRBC abs 0.00 0.00 - 0.01 K/cumm [facility] Blood 01/04/2025 11:2 8 AM CDT 01/04/2025 12:48 PM CDT Jaiden Hall MD LAB BLOOD ORDERABLES Final Result Performing Organization Address City/State/[facility] de Phone Number [facility] [address] Department [place] [address] * Hepatitis panel, acute Blood (01/04/2025 11:28 AM CDT) Pathologist [facility] Hep A IgM Nonreactive Nonreactive Comment: Interpretive Data: If Hep A IgM Ab is reported as Equivocal, a new sample should be drawn in two weeks for testing. Current interpretive data was last revised on 19. Hep B core IgM Nonreactive Nonreactive [facility] Comment: Interpretive Data If HepB Core IgM Ab is reported as Equivocal, a new sample should be drawn in two weeks for testing. Current interpretive data was last revised on 19. Hep C Ab Nonreactive Nonreactive [facility] Comment: Interpretive Data Nonreactive: Antibodies to HCV [...] last revised on 2019. HepBsAg Nonreactive Nonreactive [facility] Blood 01/04/2025 11:2 8 AM CDT 01/04/2025 12:47 PM CDT Jaiden Hall MD LAB MICROBIOLOGY - [facility] ORDERABLES Final Result Performing Organization Address [facility] [place] [facility] Co de Phone Number [facility] [address] Department [place] [address] * Hepatitis B core antibody, total Blood (01/04/2025 11:28 AM CDT) Pathologist [facility] Hep B core IgG/IgM Nonreactive Nonreactive Comment:Testing performed by : [facility], [address] [place]., [address] Blood 01/04/2025 11:2 8 AM CDT 01/04/2025 5:20 PM CDT Jaiden Hall MD LAB MICROBIOLOGY - GE NERAL ORDERABLES Final Result Performing Organization Address City/[facility]/ZIP Co de Phone Number [facility] [address] [place] [place] [address] * Vitamin D 25 hydroxy (01/04/2025 11:28 AM CDT) [facility] Vitamin D 25-OH 56 30 - 80 ng/mL Blood 01/04/2025 11:2 8 AM CDT 01/04/2025 12:48 PM CDT Jaiden Hall MD LAB BLOOD ORDERABLES Final Result Performing Organization Address [facility] [place] [facility] de Phone Number [facility] [address] Department [employer] [place] [address] * Varicella Zoster IgG antibody Blood (01/04/2025 11:28 AM CDT) [facility] VZV IgG Reactive Reactive Comment: Reactive: Results suggest response to immunization or prior exposure to the virus. Testing performed by: [facility], [address] [place]., [address] Blood 01/04/2025 11:2 8 AM CDT 01/04/2025 5:20 PM CDT Jaiden Hall MD LAB MICROBIOLOGY - GE NERAL ORDERABLES Final Result Performing Organization Address [facility] Co de Phone Number [facility] [address] [place] [address] * (ABNORMAL) Comprehensive metabolic panel (01/04/2025 11:28 AM CDT) [facility] Sodium 141 135 - 145 mmol/L Potassium, pl 4.2 3.3 - 4.9 mmol/L [facility] Chloride 102 97 - 110 mmol/L [facility] CO2 26 22 - 32 mmol/L [facility] Anion gap 13 2 - 15 mmol/L [facility] BUN 13 6 - 25 mg/dL [facility] Creatinine 0.44(L) 0.60 - 1.10 mg/dL [facility] Glucose 95 70 - 199 mg/dL [facility] Comment: Interpretive Data Fasting glucose >/= 126 [...] 2022. Calcium 9.6 8.5 - 10.3 mg/dL [facility] Bilirubin, total 0.3 0.1 - 1.2 mg/dL [facility] Protein, pl 7.0 6.5 - 8.5 g/dL [facility] Albumin 4.4 3.5 - 5.0 g/dL [facility] Alk phos 104 40 - 130 Units/L [facility] ALT 29 7 - 45 Units/L [facility] AST 28 10 - 45 Units/L [facility] Blood 01/04/2025 11:2 8 AM CDT 01/04/2025 12:48 PM CDT Jaiden Hall MD LAB BLOOD ORDERABLES Final Result [facility] [address] Department of Laboratories [place], [place] [id number] from Last 3 Months Insurance MEDICARE [facility] MEDICARE [facility] MEDICARE [facility] [employer] Care Teams Numerical Control Router Operator Relationship Specialty Start Date End Date Chuck Looney MD [address] [place] [address] PCP - General 03/11/17
--- OUTSIDE RECORDS SUMMARY | 2025-01-19 07:24 | XMS_ITS | Encounter Summary ---
Author Organization [facility] Address [address] [place] [address] Care Team Providers Care Supervisor Data Processing Name Role Phone Chuck Looney MD Primary Care Provider +1- [phone] Encounter Details Date Type Department Care Team (Late st Contact Info) Description 03/17/2006 Outpatient Historical Division of Neurology 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
--- OUTSIDE RECORDS SUMMARY | 2025-01-19 07:24 | XMS_ITS | Encounter Summary ---
Author Organization [facility] Address [address] [place] [address] Care Team Providers Care Solar Fabrication Technician Name Role Phone Chuck Looney MD Primary Care Provider +1- [phone] Encounter Details Date Type Department Care Team (Latest Contact Info) Description 10/28/1998 Outpatient Historical HIS [facility] Willard Gillespie MD [address] [facility] [address] [place] [address] Multiple sclerosis (CMS/HCC) (Primary Dx) Social History Tobacco Use Types Packs/Day Years Used Date Smoking Tobacco: Never Assessed Comments Unknown Sex and Gender Information Value Date Recorded Sex Assigned at Not on file Legal 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
--- OUTSIDE RECORDS SUMMARY | 2025-01-19 07:24 | XMS_ITS | Encounter Summary ---
Author Organization [facility] Address [address] [place] [address] Care Team Providers Care Valve Repairer Reclamation Name Role Phone Chuck Looney MD Primary Care Provider +1- [phone] Encounter Details Date Type Department Care Team (Late st Contact Info) Description 08/23/2003 Outpatient Historical Division of Neurology 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
--- OUTSIDE RECORDS SUMMARY | 2025-01-19 07:24 | XMS_ITS | Encounter Summary ---
Author Organization [facility] Address [address] [place] [address] Phone Care Team Providers Care Outside Physical Damage Appraiser Name Role Phone Chuck Looney MD Primary Care Prov ider Encounter Details Date Type Department Care Team (Late st Contact Info) Description 06/20/2013 Orders Only [facility] Jimmie Perry MD [address] [id number] Social History Tobacco Use Types Packs/Day Years Used Date Smoking Tobacco: Never Comments Unknown Sex and Gender Information Value Date Recorded Sex Assigned at Not on file Legal Sex Female 10:33 AM FINGERPRINT CLERK Gender Identity Female 01/06/2021 9:01 AM CDT [...] on filedocumented in this encounter Care Teams Outside Physical Damage Appraiser Relationship Specialty Start Date End Date Chuck Lonoey MD [address] [place] [address] PCP - General 03/11/17 documented as of this encounter
--- OUTSIDE RECORDS SUMMARY | 2025-01-19 07:24 | XMS_ITS | Encounter Summary ---
Author Organization [facility] Address [address] [place] [address] Care Team Providers Care Senior Consulting Manager Name Role Phone Chuck Looney MD Primary Care Provider +1- [phone] Encounter Details Date Type Department Care Team (Late st Contact Info) Description 11/04/2000 Outpatient Historical Division of Neurology 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
--- OUTSIDE RECORDS SUMMARY | 2025-01-19 07:24 | XMS_ITS | Encounter Summary ---
Author Organization [facility] Address [address] [place] [address] Care Team Providers Care Photographic Process Screen Maker Name Role Phone Chuck Looney MD Primary Care Provider +1- [phone] Encounter Details Date Type Department Care Team (Latest Contact Info) Description 07/01/1998 Outpatient Historical [facility] Willard Gillespie MD [address] [facility] [address] [place] [address] Multiple sclerosis (CMS/HCC) (Primary Dx) Social History Tobacco Use Types Packs/Day Years Used Date Smoking Tobacco: Never Assessed Comments Unknown Sex and Gender Information Value Date Recorded Sex Assigned at Not on file Legal 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
--- OUTSIDE RECORDS SUMMARY | 2025-01-19 07:24 | XMS_ITS | Encounter Summary ---
Author Organization [facility] Address [address] [place] [address] Care Team Providers Care Card Grinder Helper Name Role Phone Chuck Looney MD Primary Care Provider +1- [phone] Encounter Details Date Type Department Care Team (Late st Contact Info) Description 04/23/2005 Outpatient Historical HIS MRI DEPT Willard Villegas MD [address] 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
--- OUTSIDE RECORDS SUMMARY | 2025-01-19 07:24 | XMS_ITS | Clinical Summary ---
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 Betaseron: [id number] 2. Methotrexate: 1998 x 6 months 3. Copaxone: x 10 years 4. Gilenya: 1 year 5. Copaxone: 6203-5028 6. Ocrevus: 01/2018-07/15/2023 Per chart review patient [...] and would look to transfer to a half-way at that time. The patient has daughter's who are involved and work to help them. Continue botox treatments for spasticity and bladder symptoms. Encounters Date Type Department Care Team Description 01/18/2025 Orders Only [facility] [address] [place] [address] [address], [place] [address] Jaiden Hall MD 01/15/2025 Telephone [facility] [address] [place] [address] [address], [place] [address] Rachell Martinez RN 01/09/2025 Telephone [facility] in [address], [place] [id number] Kevin Bradford Re-Start (No Prior Auth Required) 01/08/2025 Orders Only [facility] in [address], [place] [address] Jaiden Hall MD Multiple sclerosis (HCC) (Primary Dx); High risk medication use 01/04/2025 11:20 AM CDT Lab [address] [place] [address] Screening for viral disease; Multiple sclerosis (HCC); Vitamin D deficiency 01/04/2025 10:00 AM CDT Office Visit [facility] in [address] [address] Jaiden Hall MD Multiple sclerosis (HCC) (Primary [...] on file Legal Sex Female 10:33 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 Gender Identity Female 01/06/2021 9:01 AM CDT Sexual Orientation Straight 01/06/2021 9: 01 AM CDT Obstetrics History Last Filed Vital Signs Vital Sign Reading Time Taken Comments Blood Pressure 128/79 01/04/2025 10:12 AM CDT Pulse 102 01/04/2025 10:12 AM CDT Temperature 36.3 C (97.4 F) 01/04/2025 10:12 AM CDT Respiratory Rate 16 05/15/2024 2:01 PM CEPHALOMETRIC TRACER Oxygen Saturation 98% 01/04/2025 10:12 AM CDT [...] Immunoglobulin A 314 70 - 400 mg/dL [facility] Immunoglobulin M 64 40 - 230 mg/dL [facility] Blood 01/04/2025 11:2 8 AM CDT 01/04/2025 12:48 PM CDT us Jaiden Hall MD LAB BLOOD ORDERABLES Final Result [facility] [address] Department [place] [address] * eGFR (01/04/2025 11:28 AM CDT) Pathologist [facility] eGFR >90 >=60 mL/min/1. 73 m2 Comment: [...] Hall MD LAB BLOOD ORDERABLES Final Result [facility] [address] Department [place] [address] * Differential, auto (01/04/2025 11:28 AM CDT) [facility] Neutrophil abs 4.93 1.50 - 6.50 K/cumm Imm gran abs 0.01 0.00 - 0.10 K/cumm [facility] Lymphocyte abs 1.91 0.80 - 3.30 K/cumm [facility] Monocyte abs 0.64 0.20 - 0.80 K/cumm [facility] Eosinophil abs 0.19 0.00 - 0.50 K/cumm [facility] Basophil abs 0.06 0.00 - 0.10 K/cumm [facility] Neutrophil pct 63.6 % [facility] Comment: Interpretive Data Percent cell count reference ranges are not reported, since discordance with absolute values may lead to misinterpretation of CBC data. Current Interpretive Data was last revised on 2017. Imm gran pct 0.1 % [facility] Comment: Interpretive Data Percent cell count reference ranges are not reported, since discordance with absolute values may lead to misinterpretation of CBC data. Current Interpretive Data was last revised on 2017. Lymphocyte pct 24.7 % [facility] Comment: Interpretive Data Percent cell count reference ranges are not reported, since discordance with absolute values may lead to misinterpretation of CBC data. Current Interpretive Data was last revised on 2017. Monocyte pct 8.3 % [facility] Comment: Interpretive Data Percent cell count reference ranges are not reported, since discordance with absolute values may lead to misinterpretation of CBC data. Current Interpretive Data was last revised on 2017. Eosinophil pct 2.5 % [facility] Comment: Interpretive Data Percent cell count reference ranges are not reported, since discordance with absolute values may lead to misinterpretation of CBC data. Current Interpretive Data was last revised on 2017. Basophil pct 0.8 % [facility] Comment: Interpretive Data Percent cell count reference ranges are not reported, since discordance with absolute values may lead to misinterpretation of CBC data. Current Interpretive Data was last revised on 2017. Blood 01/04/2025 11:2 8 AM CDT 01/04/2025 12:48 PM CDT Jaiden Hall MD LAB BLOOD ORDERABLES Final Result [facility] [address] Department [place] [address] * Immune competence (01/04/2025 11:28 AM CDT) CD3 pct 79 60 - 88 % Comment:Testing performed by : [facility], [address] [place]., [address] CD3 Absolute 1,369 661 - 1,963 cells/mcL [facility] Comment:Testing performed by : [facility], [address] [facility], [address] CD4 pct 58 31 - 64 % [facility] Comment:Testing performed by : [facility], [address] [facility], [address] CD4 Absolute 988 365 - 1,294 cells/mcL [facility] Comment:Testing performed by : [facility], [address] [facility], [address] CD8 pct 22 12 - 40 % [facility] Comment:Testing performed by : [facility], [address] [facility], [address] CD8 Absolute 367 187 - 781 cells/mcL [facility] Comment:Testing performed by : [facility], [address] [facility], [address] CD19 pct 10 6 - 25 % [facility] Comment:Testing performed by : [facility], [address] [facility], [address] CD19 Absolute 178 86 - 488 cells/mcL [facility] Comment:Testing performed by : [facility], [address] [facility], [address] [id number] pct 11 5 - 25 % [facility] Comment:Testing performed by : [facility], [address] [facility], [address] [id number] Absolute 203 76 - 467 cells/mcL [facility] Comment:Testing performed by : [facility], [address] [facility], [address] CD4/CD8 ratio 2.6 [facility] Comment:Testing performed by : [facility], [address] [facility], [address] Blood 01/04/2025 11:2 8 AM CDT 01/04/2025 5:21 PM CDT Jaiden Hall MD LAB BLOOD ORDERABLES Final Result [facility] [address] Department [place] [address] * CBC with auto differential (01/04/2025 11:28 AM CDT) [facility] WBC 7.74 3.80 - 9.90 K/cumm Hgb 13.9 11.9 - 15.5 g/dL [facility] Hct 41.8 35.6 - 45.5 % [facility] Plt 305 150 - 400 K/cumm [facility] MPV 9.9 9.1 - 12.3 fL [facility] RBC 4.57 3.90 - 5.20 M/cumm [facility] MCV 91.5 81.3 - 96.4 fL [facility] MCH 30.4 27.1 - 33.3 pg [facility] MCHC 33.3 32.3 - 35.7 g/dL [facility] RDW CV 12.6 11.1 - 14.9 % [facility] RDW SD 41.7 35.7 - 48.1 fL [facility] NRBC abs 0.00 0.00 - 0.01 K/cumm [facility] Blood 01/04/2025 11:2 8 AM CDT 01/04/2025 12:48 PM CDT Jaiden Hall MD LAB BLOOD ORDERABLES Final Result Performing Organization Address [facility] Co de Phone Number [facility] [address] Department [place] [address] * Hepatitis panel, acute Blood (01/04/2025 11:28 AM CDT) [facility] Hep A IgM Nonreactive Nonreactive Comment: Interpretive Data: If Hep A IgM Ab is reported as Equivocal, a new sample should be drawn in two weeks for testing. Current interpretive data was last revised on 19. Hep B core IgM Nonreactive Nonreactive [facility] Comment: Interpretive Data If HepB Core IgM Ab is reported as Equivocal, a new sample should be drawn in two weeks for testing. Current interpretive data was last revised on 19. Hep C Ab Nonreactive Nonreactive [facility] Comment: Interpretive Data Nonreactive: Antibodies [...] last revised on 2019. HepBsAg Nonreactive Nonreactive [facility] Blood 01/04/2025 11:2 8 AM CDT 01/04/2025 12:47 PM CDT Jaiden Hall MD LAB MICROBIOLOGY - GE NERAL ORDERABLES Final Result [facility] [address] Department [place] [address] * Hepatitis B core antibody, total Blood (01/04/2025 11:28 AM CDT) Pathologist [facility] Hep B core IgG/IgM Nonreactive Nonreactive Comment:Testing performed by : [facility], [address] [facility], [place]., [address] Blood 01/04/2025 11:2 8 AM CDT 01/04/2025 5:20 PM CDT Jaiden Hall MD LAB MICROBIOLOGY - GE NERAL ORDERABLES Final Result [facility] [address] Department [place] [address] * Vitamin D 25 hydroxy (01/04/2025 11:28 AM CDT) Vitamin D 25-OH 56 30 - 80 ng/mL Blood 01/04/2025 11:2 8 AM CDT 01/04/2025 12:48 PM CDT Jaiden Hall MD LAB BLOOD ORDERABLES Final Result Performing Organization Address [facility] Co de Phone Number [facility] [address] [facility] [place] [address] * Varicella Zoster IgG antibody Blood (01/04/2025 11:28 AM CDT) [facility] VZV IgG Reactive Reactive Comment: Reactive: Results suggest response to immunization or prior exposure to the virus. Testing performed by: [facility], [address] [place] [address]., [address] Blood 01/04/2025 11:2 8 AM CDT 01/04/2025 5:20 PM CDT Jaiden Hall MD LAB MICROBIOLOGY - GE NERAL ORDERABLES Final Result Performing Organization Address [facility] Co de Phone Number [facility] [address] Department [place] [address] * (ABNORMAL) Comprehensive metabolic panel (01/04/2025 11:28 AM CDT) [facility] Sodium 141 135 - 145 mmol/L Potassium, pl 4.2 3.3 - 4.9 mmol/L [facility] Chloride 102 97 - 110 mmol/L [facility] CO2 26 22 - 32 mmol/L [facility] Anion gap 13 2 - 15 mmol/L [facility] BUN 13 6 - 25 mg/dL [facility] Creatinine 0.44(L) 0.60 - 1.10 mg/dL [facility] Glucose 95 70 - 199 mg/dL [facility] Comment: Interpretive Data Fasting glucose [...] 2022. Calcium 9.6 8.5 - 10.3 mg/dL [facility] Bilirubin, total 0.3 0.1 - 1.2 mg/dL [facility] Protein, pl 7.0 6.5 - 8.5 g/dL [facility] Albumin 4.4 3.5 - 5.0 g/dL [facility] Alk phos 104 40 - 130 Units/L [facility] ALT 29 7 - 45 Units/L [facility] AST 28 10 - 45 Units/L [facility] Blood 01/04/2025 11:2 8 AM CDT 01/04/2025 12:48 PM CDT us Jaiden Hall MD LAB BLOOD ORDERABLES Final Result [facility] [address] Department [place] [address] from Last 3 Months Insurance MEDICARE [facility] Address: [facility] [address] [place] [address] [facility] Address: [address] [place] [address] MEDICARE [facility] [employer] MEDICARE [facility] [employer] Care Teams Shell Trim Tool Setter Relationship Specialty Start Date End Date Chuck Looney MD [address] [place] [address] PCP - General 03/11/17
--- OUTSIDE RECORDS SUMMARY | 2025-01-19 07:24 | XMS_ITS | Encounter Summary ---
Author Organization [facility] Address [address] [place] [address] Care Team Providers Care Queen'S Counsel Name Role Phone Chuck Looney MD Primary Care Provider +1- [phone] Encounter Details Date Type Department Care Team (Late st Contact Info) Description 05/18/2007 Outpatient Historical HIS MRI DEPT Willard Villegas MD [address] [facility] [address] [place] [address] Multiple Sclerosis (CMS/HCC) (Primary Dx) Social History Tobacco Use Types Packs/Day Years Used Date Smoking Tobacco: Never Assessed Comments Unknown Sex and Gender Information Value Date Recorded Sex Assigned at Not on file Legal Sex Female 2:59 AM TORCH BRAZER Gender Identity Not on file Sexual Orientation Not on file documented as of this encounter Plan of Treatment Not on file documented as of this encounter Procedures Procedure Name Priority Date/Time Associated Diagnosis Comments POC CREATININE Routine 05/18/2007 8:10 PM TORCH BRAZER documented in this encounter Results * POC CREATININE (05/18/2007 8:10 PM TORCH BRAZER) CREATININE POC 0.8 0.6 - 1.3 mg/dL INTERFACE SYSTEM 05/18/2007 8:10 PM TORCH BRAZER us Willard Villegas MD POINT OF CARE TESTING Edited INTERFACE SYSTEM Refer to clinic/hospital department documented in this encounter Visit Diagnoses Diagnosis Multiple sclerosis (CMS/HCC)- Primary Multiple sclerosis documented in this encounter Care Teams Queen'S Counsel Relationship Specialty Start Date End Date Chuck Looney MD PCP - General 02/25/09 documented as of this encounter
--- OUTSIDE RECORDS SUMMARY | 2025-01-19 07:24 | XMS_ITS | Encounter Summary ---
Author Organization [facility] Address [address] [place] [address] Care Team Providers Care Customer Care Coordinator Name Role Phone Chuck Looney MD Primary Care Provider +1- [phone] Encounter Details Date Type Department Care Team (Late st Contact Info) Description 11/14/2001 Outpatient Historical Division of Neurology 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
--- OUTSIDE RECORDS SUMMARY | 2025-01-19 07:24 | XMS_ITS | Encounter Summary ---
Author Organization [facility] Address [address] [place]: Epic Prelude ADT [place] [address] Care Team Providers Care Dental Instructor Name Role Phone Chuck Looney MD Primary Care Provider +1- [phone] Encounter Details Date Type Department Care Team (Late st Contact Info) Description 12/10/1992 Outpatient Historical [facility] Social History Tobacco Use Types Packs/Day Years Used Date Smoking Tobacco: Never Assessed Comments Unknown Sex and Gender Information Value Date Recorded Sex Assigned at Not on file Legal Sex Female 2:59 AM INSEAM LEVELER Gender Identity Not on file Sexual Orientation Not on file documented as of this encounter Plan of Treatment Not on file documented as of this encounter Visit Diagnoses Not on filedocumented in this encounter Care Teams Dental Instructor Relationship Specialty Start Date End Date Chuck Looney MD PCP - General 02/25/09 documented as of this encounter
--- OUTSIDE RECORDS SUMMARY | 2025-01-19 07:24 | XMS_ITS | Encounter Summary ---
Author Organization [facility] Address [address] [place] [address] Care Team Providers Care Instrumentation Engineer Name Role Phone Chuck Looney MD Primary Care Provider +1- [phone] Encounter Details Date Type Department Care Team (Late st Contact Info) Description 01/11/2003 Outpatient Historical Division of Neurology 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
--- OUTSIDE RECORDS SUMMARY | 2025-01-19 07:24 | XMS_ITS | Encounter Summary ---
Author Organization [facility] Address [address] [place] [address] Care Team Providers Care Decker Operator Name Role Phone Chuck Looney MD Primary Care Provider +1- [phone] Encounter Details Date Type Department Care Team (Late st Contact Info) Description 02/11/2003 Outpatient Historical [facility] Willard Villegas MD [address] [facility] [address] [place] [address] Social History Tobacco Use Types Packs/Day Years Used Date Smoking Tobacco: Never Assessed Comments Unknown Sex and Gender Information Value Date Recorded Sex Assigned at Not on file Legal Sex Female 2:59 AM ABSORBER OPERATOR Gender Identity Not on file Sexual Orientation Not on file documented as of this encounter Plan of Treatment Not on file documented as of this encounter Visit Diagnoses Not on filedocumented in this encounter Care Teams Decker Operator Relationship Specialty Start Date End Date Chuck Looney MD PCP - General 02/25/09 documented as of this encounter
--- OUTSIDE RECORDS SUMMARY | 2025-01-19 07:24 | XMS_ITS | Encounter Summary ---
Author Organization [facility] Address [address] [place] [address] Care Team Providers Care Middle School English Teacher Name Role Phone Chuck Looney MD Primary Care Provider +1- [phone] Encounter Details Date Type Department Care Team (Late st Contact Info) Description 04/14/1999 Outpatient Historical Division of Neurology [address] [address] Willard Villegas MD [address] [place] [address] Social History Tobacco Use Types Packs/Day Years Used Date Smoking Tobacco: Never Assessed Comments Unknown Sex and Gender Information Value Date Recorded Sex Assigned at Not on file Legal Sex Female 2:59 AM INVESTIGATION CLERK Gender Identity Not on file Sexual Orientation Not on file documented as of this encounter Plan of Treatment Not on file documented as of this encounter Visit Diagnoses Not on filedocumented in this encounter Care Teams Middle School English Teacher Relationship Specialty Start Date End Date Chuck Looney MD PCP - General 02/25/09 documented as of this encounter
--- OUTSIDE RECORDS SUMMARY | 2025-01-19 07:24 | XMS_ITS | Clinical Summary ---
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
--- OUTSIDE RECORDS SUMMARY | 2025-01-19 07:24 | XMS_ITS | Encounter Summary ---
Author Organization [facility] Address [address] [place] [address] Care Team Providers Care Garde Manager Name Role Phone Chuck Looney MD Primary Care Prov ider Encounter Details Date Type Department Care Team (Late st Contact Info) Description 01/15/2025 Telephone [facility] In[facility] [address] [facility] [address], [place] [address] Rachell Martinez RN Social History Tobacco Use Types Packs/Day Years Used Date Smoking Tobacco: Never Smokeless Tobacco: Never Alcohol Use Standard Drinks/Week Comments No 0 (1 standard drink = 0.6 oz pur e alcohol) Comments No Sex and Gender Information Value Date Recorded Sex Assigned at Not on file Legal Sex Female 10:33 AM BULKER Gender Identity Female 01/06/2021 9:01 AM CDT Sexual Orientation Straight 01/06/2021 9: 01 AM CDT documented as of this encounter Plan of Treatment Not on file documented as of this encounter Visit Diagnoses Not on filedocumented in this encounter Care Teams Garde Manager Relationship Specialty Start Date End Date Chuck Looney MD [address] [place] [address] PCP - General 03/11/17 documented as of this encounter
--- OUTSIDE RECORDS SUMMARY | 2025-01-19 07:24 | XMS_ITS | Encounter Summary ---
Author Organization [facility] Address [address] [place] [address] Care Team Providers Care Drug Discovery Informatics Specialist Name Role Phone Chuck Looney MD Primary Care Provider +1- [phone] Encounter Details Date Type Department Care Team (Latest Contact Info) Description 12/10/1998 Outpatient Historical HIS [facility] Willard Gillespie MD [address] [facility] [address] [place] [address] Multiple sclerosis (CMS/HCC) (Primary Dx) Social History Tobacco Use Types Packs/Day Years Used Date Smoking Tobacco: Never Assessed Comments Unknown Sex and Gender Information Value Date Recorded Sex Assigned at Not on file Legal Sex Female 2:59 AM ERECTOR OPERATOR Gender Identity Not on file Sexual Orientation Not on file documented as of this encounter Plan of Treatment Not on file documented as of this encounter Visit Diagnoses Diagnosis Multiple sclerosis (CMS/HCC)- Primary Multiple sclerosis documented in this encounter Care Teams Drug Discovery Informatics Specialist Relationship Specialty Start Date End Date Chuck Looney MD PCP - General 02/25/09 documented as of this encounter
[2025-01-19] MEDS: oxyCODONE HCL (*CRX) 5 MG TAB IR PO (07:30)
[2025-01-19] MEDS: KETOROLAC 30 MG/ML VIAL (*BKC) IM (07:30)
[2025-01-19 07:56] VITALS: BP 106/72; PULSE 85; RESP 16; O2SAT 97
== END 2025-01-19 07:58 | disposition home or self-care (01) ==
PROVIDERS: Emergency Provider Emergency Medicine; PCP Family Medicine Adolescent Medicine
DX: S42.214A Unspecified nondisplaced fracture of surgical neck of right humerus, initial encounter for closed fracture (principal); G35 Multiple sclerosis; I10 Essential (primary) hypertension; E78.00 Pure hypercholesterolemia, unspecified; N31.9 Neuromuscular dysfunction of bladder, unspecified; Z85.820 Personal history of malignant melanoma of skin; Z87.442 Personal history of urinary calculi; Z79.899 Other long term (current) drug therapy; W04.XXXA Fall while being carried or supported by other persons, initial encounter
CPT/HCPCS: 73030; 73060; 73090; 73100; 96372; 99284; A4565; A9270; J1885

== ENCOUNTER 2025-02-26 11:24 | Outpatient (CLI) | payer MEDICARE, BC, SELFPAY ==
--- NOTE | ~2025-02-26 | XR_ITS ---
XR shoulder RT min 2V 02/26/2025 11:57 Indication: Right-sided paralysis. Right shoulder fracture. Procedure: 4 views right shoulder Comparison: 01/19/2025 Findings: There is a right humeral neck fracture without significant change to appearance. There are subtle developing sclerosis at the fracture line. Acromioclavicular joint is in anatomic alignment. Surrounding osseous structures are unremarkable. Impression: 1: Stable alignment of healing right humeral neck fracture. Reviewed, dictated and finalized at location O. Impression: 1: Stable alignment of healing right humeral neck fracture.
--- OUTSIDE RECORDS SUMMARY | 2025-02-26 12:06 | XMS_ITS | Encounter Summary ---
Author Organization [employer] Address [address] [place] [address] Care Team Providers Care Machine Welt Butter Name Role Phone Chuck Looney MD Primary Care Provider +1- [phone] Encounter Details Date Type Department Care Team (Late st Contact Info) Description 09/15/2006 Outpatient Historical Division of Neurology [address] [address] Willard Villegas MD [address] [place] [address] Social History Tobacco Use Types Packs/Day Years Used Date Smoking Tobacco: Never Assessed Comments Unknown Sex and Gender Information Value Date Recorded Sex Assigned at Not on file Legal Sex Female 2:59 AM DICTAPHONE OPERATOR Gender Identity Not on file Sexual Orientation Not on file documented as of this encounter Plan of Treatment Not on file documented as of this encounter Visit Diagnoses Not on filedocumented in this encounter Care Teams Machine Welt Butter Relationship Specialty Start Date End Date Chuck Looney MD PCP - General 02/25/09 documented as of this encounter
--- OUTSIDE RECORDS SUMMARY | 2025-02-26 12:06 | XMS_ITS | Encounter Summary ---
Author Organization [facility] Address [address] [place] [address] Care Team Providers Care Web Development Consultant Name Role Phone Chuck Looney MD Primary Care Provider +1- [phone] Encounter Details Date Type Department Care Team (Late st Contact Info) Description 02/11/2003 Outpatient Historical HIS [facility] Willard Villegas MD [address] [facility] [address] [place] [address] Social History Tobacco Use Types Packs/Day Years Used Date Smoking Tobacco: Never Assessed Comments Unknown Sex and Gender Information Value Date Recorded Sex Assigned at Not on file Legal Sex Female 2:59 AM CARE TEAM COORDINATOR SCHEDULER Gender Identity Not on file Sexual Orientation Not on file documented as of this encounter Plan of Treatment Not on file documented as of this encounter Visit Diagnoses Not on filedocumented in this encounter Care Teams Web Development Consultant Relationship Specialty Start Date End Date Chuck Looney MD PCP - General 02/25/09 documented as of this encounter
--- OUTSIDE RECORDS SUMMARY | 2025-02-26 12:06 | XMS_ITS | Encounter Summary ---
Author Organization [facility] Address [address] [place] [address] Care Team Providers Care Animal Stunner Name Role Phone Chuck Looney MD Primary Care Provider +1- [phone] Encounter Details Date Type Department Care Team (Late st Contact Info) Description 11/14/2001 Outpatient Historical Division of Neurology 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
--- OUTSIDE RECORDS SUMMARY | 2025-02-26 12:06 | XMS_ITS | Encounter Summary ---
Author Organization [facility] Address [address] [place] [address] Care Team Providers Care Genetic Technologist Name Role Phone Chuck Looney MD Primary Care Provider +1- [phone] Encounter Details Date Type Department Care Team (Late st Contact Info) Description 10/25/2003 Outpatient Historical HIS MRI DEPT Willard Villegas MD [address] [facility] [address] [place] [address] MULTIPLE SCLEROSIS (CMS/HCC) (Primary Dx) Social History Tobacco Use Types Packs/Day Years Used Date Smoking Tobacco: Never Assessed Comments Unknown Sex and Gender Information Value Date Recorded Sex Assigned at Not on file Legal Sex Female 2:59 AM APPEALS OFFICER Gender Identity Not on file Sexual Orientation Not on file documented as of this encounter Plan of Treatment Not on file documented as of this encounter Visit Diagnoses Diagnosis Multiple sclerosis (CMS/HCC)- Primary Multiple sclerosis documented in this encounter Care Teams Genetic Technologist Relationship Specialty Start Date End Date Chuck Looney MD PCP - General 02/25/09 documented as of this encounter
--- OUTSIDE RECORDS SUMMARY | 2025-02-26 12:06 | XMS_ITS | Encounter Summary ---
Author Organization [facility] Address [address] [place] [address] Phone Care Team Providers Care Hollow Tile Partition Erector Name Role Phone Chuck Looney MD Primary Care Prov ider Encounter Details Date Type Department Care Team (Late st Contact Info) Description 06/20/2013 Orders Only [facility] Jimmie Perry MD [address] [id number] Social History Tobacco Use Types Packs/Day Years Used Date Smoking Tobacco: Never Comments Unknown Sex and Gender Information Value Date Recorded Sex Assigned at Not on file Legal Sex Female 10:33 AM RUG LAYER Gender Identity Female 01/06/2021 9:01 AM CDT Sexual Orientation Straight 01/06/2021 9: 01 AM CDT documented as of this encounter Plan of Treatment Not on file documented as of this encounter Procedures Procedure Name Priority Date/Time Associated Diagnosis Comments PROCEDURE REPORT 06/20/2013 documented in this encounter Results * PROCEDURE REPORT (06/20/2013) Jimmie Perry MD NURSING COMMUNICATION Nora avila Result documented in this encounter Visit Diagnoses Not on filedocumented in this encounter Care Teams Hollow Tile Partition Erector Relationship Specialty Start Date End Date Chuck Looney MD [address] [place] [address] PCP - General 03/11/17 documented as of this encounter
--- OUTSIDE RECORDS SUMMARY | 2025-02-26 12:06 | XMS_ITS | Encounter Summary ---
Author Organization [facility] Address [address] [place] [address] Care Team Providers Care Biometrics Technician Name Role Phone Chuck Looney MD Primary Care Provider +1- [phone] Encounter Details Date Type Department Care Team (Late st Contact Info) Description 11/04/2000 Outpatient Historical Division of Neurology 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
--- OUTSIDE RECORDS SUMMARY | 2025-02-26 12:06 | XMS_ITS | Encounter Summary ---
Author Organization [facility] Address [address] [place] [address] Care Team Providers Care Warehouse Shipping Supervisor Name Role Phone Chuck Looney MD Primary Care Provider +1- [phone] Encounter Details Date Type Department Care Team (Latest Contact Info) Description 07/01/1998 Outpatient Historical HIS [facility] Willard Gillespie MD [address] [facility] [address] [place] [address] Multiple sclerosis (CMS/HCC) (Primary Dx) Social History Tobacco Use Types Packs/Day Years Used Date Smoking Tobacco: Never Assessed Comments Unknown Sex and Gender Information Value Date Recorded Sex Assigned at Not on file Legal Sex Female 2:59 AM CRACKER DOUGH MIXER Gender Identity Not on file Sexual Orientation Not on file documented as of this encounter Plan of Treatment Not on file documented as of this encounter Visit Diagnoses Diagnosis Multiple sclerosis (CMS/HCC)- Primary Multiple sclerosis documented in this encounter Care Teams Warehouse Shipping Supervisor Relationship Specialty Start Date End Date Chuck Looney MD PCP - General 02/25/09 documented as of this encounter
--- OUTSIDE RECORDS SUMMARY | 2025-02-26 12:06 | XMS_ITS | Encounter Summary ---
Author Organization [facility] Address [address] [place] [address] Care Team Providers Care Activity Aid Name Role Phone Chuck Looney MD Primary Care Provider +1- [phone] Encounter Details Date Type Department Care Team (Late st Contact Info) Description 09/10/2005 Outpatient Historical Division of Neurology [address] [address] Willard Villegas MD [address] [place] [address] Social History Tobacco Use Types Packs/Day Years Used Date Smoking Tobacco: Never Assessed Comments Unknown Sex and Gender Information Value Date Recorded Sex Assigned at Not on file Legal Sex Female 2:59 AM TELEGRAPH AND TELETYPE OPERATOR Gender Identity Not on file Sexual Orientation Not on file documented as of this encounter Plan of Treatment Not on file documented as of this encounter Visit Diagnoses Not on filedocumented in this encounter Care Teams Activity Aid Relationship Specialty Start Date End Date Chuck Looney MD PCP - General 02/25/09 documented as of this encounter
--- OUTSIDE RECORDS SUMMARY | 2025-02-26 12:06 | XMS_ITS | Encounter Summary ---
Author Organization [facility] Address [address] [place] [address] Care Team Providers Care Packaging Assembler Name Role Phone Chuck Looney MD Primary Care Provider +1- [phone] Encounter Details Date Type Department Care Team (Latest Contact Info) Description 10/28/1998 Outpatient Historical HIS [facility] Willard Gillespie MD [address] [facility] [address] [place] [address] Multiple sclerosis (CMS/HCC) (Primary Dx) Social History Tobacco Use Types Packs/Day Years Used Date Smoking Tobacco: Never Assessed Comments Unknown Sex and Gender Information Value Date Recorded Sex Assigned at Not on file Legal Sex Female 2:59 AM SIGN HANGER Gender Identity Not on file Sexual Orientation Not on file documented as of this encounter Plan of Treatment Not on file documented as of this encounter Visit Diagnoses Diagnosis Multiple sclerosis (CMS/HCC)- Primary Multiple sclerosis documented in this encounter Care Teams Packaging Assembler Relationship Specialty Start Date End Date Chuck Looney MD PCP - General 02/25/09 documented as of this encounter
--- OUTSIDE RECORDS SUMMARY | 2025-02-26 12:06 | XMS_ITS | Encounter Summary ---
Author Organization [facility] Address [address] [place] [address] Care Team Providers Care Advertising Supervisor Name Role Phone Chuck Looney MD Primary Care Provider +1- [phone] Encounter Details Date Type Department Care Team (Late st Contact Info) Description 04/14/1999 Outpatient Historical Division of Neurology [address] [address] Willard Villegas MD [address] [place] [address] Social History Tobacco Use Types Packs/Day Years Used Date Smoking Tobacco: Never Assessed Comments Unknown Sex and Gender Information Value Date Recorded Sex Assigned at Not on file Legal Sex Female 2:59 AM PREPARATION CENTER COORDINATOR Gender Identity Not on file Sexual Orientation Not on file documented as of this encounter Plan of Treatment Not on file documented as of this encounter Visit Diagnoses Not on filedocumented in this encounter Care Teams Advertising Supervisor Relationship Specialty Start Date End Date Chuck Looney MD PCP - General 02/25/09 documented as of this encounter
--- OUTSIDE RECORDS SUMMARY | 2025-02-26 12:06 | XMS_ITS | Encounter Summary ---
Author Organization [facility] Address [address] [place] [address] Care Team Providers Care General Neurologist Name Role Phone Chuck Looney MD Primary Care Provider +1- [phone] Encounter Details Date Type Department Care Team (Latest Contact Info) Description 04/14/1999 Outpatient Historical HIS [facility] Willard Gillespie MD [address] [facility] [address] [place] [address] Multiple sclerosis (CMS/HCC) (Primary Dx) Social History Tobacco Use Types Packs/Day Years Used Date Smoking Tobacco: Never Assessed Comments Unknown Sex and Gender Information Value Date Recorded Sex Assigned at Not on file Legal Sex Female 2:59 AM ENGINEERING VICE PRESIDENT Gender Identity Not on file Sexual Orientation Not on file documented as of this encounter Plan of Treatment Not on file documented as of this encounter Visit Diagnoses Diagnosis Multiple sclerosis (CMS/HCC)- Primary Multiple sclerosis documented in this encounter Care Teams General Neurologist Relationship Specialty Start Date End Date Chuck Looney MD PCP - General 02/25/09 documented as of this encounter
--- OUTSIDE RECORDS SUMMARY | 2025-02-26 12:06 | XMS_ITS | Encounter Summary ---
Author Organization [facility] Address [address] [place] [address] Care Team Providers Care Death Claim Examiner Name Role Phone Chuck Looney MD Primary Care Provider +1- [phone] Encounter Details Date Type Department Care Team (Late st Contact Info) Description 07/21/1999 Outpatient Historical Division of Neurology [address] [address] Willard Villegas MD [address] [place] [address] Social History Tobacco Use Types Packs/Day Years Used Date Smoking Tobacco: Never Assessed Comments Unknown Sex and Gender Information Value Date Recorded Sex Assigned at Not on file Legal Sex Female 2:59 AM MEDICAID ELIGIBILITY SPECIALIST Gender Identity Not on file Sexual Orientation Not on file documented as of this encounter Plan of Treatment Not on file documented as of this encounter Visit Diagnoses Not on filedocumented in this encounter Care Teams Death Claim Examiner Relationship Specialty Start Date End Date Chuck Looney MD PCP - General 02/25/09 documented as of this encounter
--- OUTSIDE RECORDS SUMMARY | 2025-02-26 12:06 | XMS_ITS | Encounter Summary ---
Author Organization [facility] Address [address] [place] [address] Care Team Providers Care Bridge Manager Name Role Phone Chuck Looney MD Primary Care Provider +1- [phone] Encounter Details Date Type Department Care Team (Late st Contact Info) Description 03/17/2006 Outpatient Historical Division of Neurology [address] [address] Willard Villegas MD [address] [place] [address] Social History Tobacco Use Types Packs/Day Years Used Date Smoking Tobacco: Never Assessed Comments Unknown Sex and Gender Information Value Date Recorded Sex Assigned at Not on file Legal Sex Female 2:59 AM PARAFFIN PLANT OPERATOR Gender Identity Not on file Sexual Orientation Not on file documented as of this encounter Plan of Treatment Not on file documented as of this encounter Visit Diagnoses Not on filedocumented in this encounter Care Teams Bridge Manager Relationship Specialty Start Date End Date Chuck Looney MD PCP - General 02/25/09 documented as of this encounter
--- OUTSIDE RECORDS SUMMARY | 2025-02-26 12:06 | XMS_ITS | Encounter Summary ---
Author Organization [facility] Address [address] [place] [address] Care Team Providers Care Medical Records Auditor Name Role Phone Chuck Looney MD Primary Care Provider +1- [phone] Encounter Details Date Type Department Care Team (Late st Contact Info) Description 04/23/2005 Outpatient Historical HIS MRI DEPT Willard Villegas MD [address] [facility] [address] [place] [address] MULTIPLE SCLEROSIS (CMS/HCC) (Primary Dx) Social History Tobacco Use Types Packs/Day Years Used Date Smoking Tobacco: Never Assessed Comments Unknown Sex and Gender Information Value Date Recorded Sex Assigned at Not on file Legal Sex Female 2:59 AM AS400 ADMINISTRATOR Gender Identity Not on file Sexual Orientation Not on file documented as of this encounter Plan of Treatment Not on file documented as of this encounter Visit Diagnoses Diagnosis Multiple sclerosis (CMS/HCC)- Primary Multiple sclerosis documented in this encounter Care Teams Medical Records Auditor Relationship Specialty Start Date End Date Chuck Looney MD PCP - General 02/25/09 documented as of this encounter
--- OUTSIDE RECORDS SUMMARY | 2025-02-26 12:06 | XMS_ITS | Encounter Summary ---
Author Organization [facility] Address [address] [place] [address] Care Team Providers Care Call Out Operator Name Role Phone Chuck Looney MD Primary Care Provider +1- [phone] Encounter Details Date Type Department Care Team (Late st Contact Info) Description 06/24/2001 Outpatient Historical HIS MRI DEPT Willard Villegas MD [address] [facility] [address] [place] [address] MULTIPLE SCLEROSIS (CMS/HCC) (Primary Dx) Social History Tobacco Use Types Packs/Day Years Used Date Smoking Tobacco: Never Assessed Comments Unknown Sex and Gender Information Value Date Recorded Sex Assigned at Not on file Legal Sex Female 2:59 AM C CONSULTANT Gender Identity Not on file Sexual Orientation Not on file documented as of this encounter Plan of Treatment Not on file documented as of this encounter Visit Diagnoses Diagnosis Multiple sclerosis (CMS/HCC)- Primary Multiple sclerosis documented in this encounter Care Teams Call Out Operator Relationship Specialty Start Date End Date Chuck Looney MD PCP - General 02/25/09 documented as of this encounter
--- OUTSIDE RECORDS SUMMARY | 2025-02-26 12:06 | XMS_ITS | Encounter Summary ---
Author Organization [facility] Address [address] [place] [address] Care Team Providers Care Recreation Teacher Name Role Phone Chuck Looney MD Primary Care Provider +1- [phone] Encounter Details Date Type Department Care Team (Late st Contact Info) Description 03/23/2007 Outpatient Historical Division of Neurology [address] [address] Willard Villegas MD [address] [place] [address] Social History Tobacco Use Types Packs/Day Years Used Date Smoking Tobacco: Never Assessed Comments Unknown Sex and Gender Information Value Date Recorded Sex Assigned at Not on file Legal Sex Female 2:59 AM EMS COORDINATOR Gender Identity Not on file Sexual Orientation Not on file documented as of this encounter Plan of Treatment Not on file documented as of this encounter Visit Diagnoses Not on filedocumented in this encounter Care Teams Recreation Teacher Relationship Specialty Start Date End Date Chuck Looney MD PCP - General 02/25/09 documented as of this encounter
--- OUTSIDE RECORDS SUMMARY | 2025-02-26 12:06 | XMS_ITS | Clinical Summary ---
Author Organization [facility] Address [address] [place] [address] Care Team Providers Care Photonics Engineer Name Role Phone Chuck Looney MD Primary Care Provider +1- [phone] Allergies Active Allergy Reactions Criticality Noted Date [...] Encounters Date Type Department Care Team Description 01/17/2025 External Device Data STL ABSTRACTION Provider, Abstract 01/16/2025 External Device Data ST[facility] ABSTRACTION Provider, [...] drink = 0.6 oz pur e alcohol) Feeling Safe Answer Date Recorded Are you in a relationship wi th someone who hurts you emotionally and/or physically? No 01/26/2024 Comments No Sex and Gender Information Value Date Recorded Sex Assigned at Not on file Legal Sex Female 2:59 AM PROJECT FACILITATOR Gender Identity Not on file Sexual Orientation [...] SCREENING 2021 INFLUENZA VACCINE (#1) 2025 Insurance [facility] FEDERAL MEDICARE PART A AND B Care Teams Photonics Engineer Relationship Specialty Start Date End Date Chuck Looney MD PCP - General 02/25/09
--- OUTSIDE RECORDS SUMMARY | 2025-02-26 12:06 | XMS_ITS | Encounter Summary ---
Author Organization [facility] Address [address] [place] [address] Care Team Providers Care Oil Well Service Operator Helper Name Role Phone Chuck Looney MD Primary Care Provider +1- [phone] Encounter Details Date Type Department Care Team (Latest Contact Info) Description 08/05/1998 Outpatient Historical [facility] Willard Gillespie MD [address] [place] [address] Multiple sclerosis (CMS/HCC) (Primary Dx) Social History Tobacco Use Types Packs/Day Years Used Date Smoking Tobacco: Never Assessed Comments Unknown Sex and Gender Information Value Date Recorded Sex Assigned at Not on file Legal Sex Female 2:59 AM FARM 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
--- OUTSIDE RECORDS SUMMARY | 2025-02-26 12:06 | XMS_ITS | Encounter Summary ---
Author Organization [facility] Address [address] [place] [address] Care Team Providers Care Sales Assistant Entertainment And Media Name Role Phone Chuck Looney MD Primary Care Provider +1- [phone] Encounter Details Date Type Department Care Team (Late st Contact Info) Description 08/21/2004 Outpatient Historical Division of Neurology [address] [address] Willard Villegas MD [address] [place] [address] Social History Tobacco Use Types Packs/Day Years Used Date Smoking Tobacco: Never Assessed Comments Unknown Sex and Gender Information Value Date Recorded Sex Assigned at Not on file Legal Sex Female 2:59 AM YARD HAND Gender Identity Not on file Sexual Orientation Not on file documented as of this encounter Plan of Treatment Not on file documented as of this encounter Visit Diagnoses Not on filedocumented in this encounter Care Teams Sales Assistant Entertainment And Media Relationship Specialty Start Date End Date Chuck Looney MD PCP - General 02/25/09 documented as of this encounter
--- OUTSIDE RECORDS SUMMARY | 2025-02-26 12:06 | XMS_ITS | Encounter Summary ---
Author Organization [facility] Address [address] [place] [address] Care Team Providers Care Warehouse Specialist Name Role Phone Chuck Looney MD Primary Care Provider +1- [phone] Encounter Details Date Type Department Care Team (Late st Contact Info) Description 10/11/2003 Outpatient Historical Division of Neurology [address] [address] Willard Villegas MD [address] [place] [address] Social History Tobacco Use Types Packs/Day Years Used Date Smoking Tobacco: Never Assessed Comments Unknown Sex and Gender Information Value Date Recorded Sex Assigned at Not on file Legal Sex Female 2:59 AM MULTINEEDLE SHIRRER Gender Identity Not on file Sexual Orientation Not on file documented as of this encounter Plan of Treatment Not on file documented as of this encounter Visit Diagnoses Not on filedocumented in this encounter Care Teams Warehouse Specialist Relationship Specialty Start Date End Date Chuck Looney MD PCP - General 02/25/09 documented as of this encounter
--- OUTSIDE RECORDS SUMMARY | 2025-02-26 12:06 | XMS_ITS | Encounter Summary ---
Author Organization [facility] Address [address] [place] [address] Care Team Providers Care Slitter Scorer Cut Off Operator Name Role Phone Chuck Looney MD Primary Care Provider +1- [phone] Encounter Details Date Type Department Care Team (Late st Contact Info) Description 02/19/2005 Outpatient Historical Division of Neurology [address] [address] Willard Villegas MD [address] [place] [address] Social History Tobacco Use Types Packs/Day Years Used Date Smoking Tobacco: Never Assessed Comments Unknown Sex and Gender Information Value Date Recorded Sex Assigned at Not on file Legal Sex Female 2:59 AM TABLE GAMES SHIFT MANAGER Gender Identity Not on file Sexual Orientation Not on file documented as of this encounter Plan of Treatment Not on file documented as of this encounter Visit Diagnoses Not on filedocumented in this encounter Care Teams Slitter Scorer Cut Off Operator Relationship Specialty Start Date End Date Chuck Looney MD PCP - General 02/25/09 documented as of this encounter
--- OUTSIDE RECORDS SUMMARY | 2025-02-26 12:06 | XMS_ITS | Encounter Summary ---
Author Organization [facility] Address [address] [place] [address] Care Team Providers Care Dispatch Lead Name Role Phone Chuck Looney MD Primary Care Provider +1- [phone] Encounter Details Date Type Department Care Team (Late st Contact Info) Description 01/11/2003 Outpatient Historical Division of Neurology 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
--- OUTSIDE RECORDS SUMMARY | 2025-02-26 12:06 | XMS_ITS | Encounter Summary ---
Author Organization [facility] Address [address] [place] [address] Care Team Providers Care Rubber Roller Grinder Operator Name Role Phone Chuck Looney MD Primary Care Provider +1- [phone] Encounter Details Date Type Department Care Team (Late st Contact Info) Description 07/10/2002 Outpatient Historical Division of Neurology [address] [place] [address] Willard Villegas MD [address] [place] [address] Social History Tobacco Use Types Packs/Day Years Used Date Smoking Tobacco: Never Assessed Comments Unknown Sex and Gender Information Value Date Recorded Sex Assigned at Not on file Legal Sex Female 2:59 AM TABLE CUT OFF SAW OPERATOR Gender Identity Not on file Sexual Orientation Not on file documented as of this encounter Plan of Treatment Not on file documented as of this encounter Visit Diagnoses Not on filedocumented in this encounter Care Teams Rubber Roller Grinder Operator Relationship Specialty Start Date End Date Chuck Looney MD PCP - General 02/25/09 documented as of this encounter
--- OUTSIDE RECORDS SUMMARY | 2025-02-26 12:06 | XMS_ITS | Encounter Summary ---
Author Organization [facility] Address [address] [place] [address] Care Team Providers Care Chucking Machine Operator Name Role Phone Chuck Looney MD Primary Care Provider +1- [phone] Encounter Details Date Type Department Care Team (Late st Contact Info) Description 03/04/2000 Outpatient Historical Division of Neurology 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
--- OUTSIDE RECORDS SUMMARY | 2025-02-26 12:06 | XMS_ITS | Encounter Summary ---
Author Organization [email or web address] Address [address] [place] [address] Care Team Providers Care Fuel Oil Truck Driver Name Role Phone Chuck Looney MD Primary Care Provider +1- [phone] Encounter Details Date Type Department Care Team (Late st Contact Info) Description 05/12/2001 Outpatient Historical Division of Neurology 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
--- OUTSIDE RECORDS SUMMARY | 2025-02-26 12:06 | XMS_ITS | Encounter Summary ---
Author Organization [facility] Address [address] 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
--- OUTSIDE RECORDS SUMMARY | 2025-02-26 12:06 | XMS_ITS | Encounter Summary ---
Author Organization [facility] Address 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
--- OUTSIDE RECORDS SUMMARY | 2025-02-26 12:06 | XMS_ITS | Encounter Summary ---
Author Organization [facility] Address [address] [place] [address] Care Team Providers Care Water Gas Operator Name Role Phone Chuck Looney MD Primary Care Provider +1- [phone] Encounter Details Date Type Department Care Team (Latest Contact Info) Description 09/26/[address] [facility] Willard Gillespie MD [address] [place] [address] Multiple sclerosis (CMS/HCC) (Primary Dx) Social History Tobacco Use Types Packs/Day Years Used Date Smoking Tobacco: Never Assessed Comments Unknown Sex and Gender Information Value Date Recorded Sex Assigned at Not on file Legal Sex Female 2:59 AM IMMIGRATION GUARD Gender Identity Not on file Sexual Orientation Not on file documented as of this encounter Plan of Treatment Not on file documented as of this encounter Visit Diagnoses Diagnosis Multiple sclerosis (CMS/HCC)- Primary Multiple sclerosis documented in this encounter Care Teams Water Gas Operator Relationship Specialty Start Date End Date Chuck Looney MD PCP - General 02/25/09 documented as of this encounter
--- OUTSIDE RECORDS SUMMARY | 2025-02-26 12:06 | XMS_ITS | Encounter Summary ---
Author Organization [facility] Address [address] [place] [address] Care Team Providers Care Group Home Manager Name Role Phone Chuck Looney MD Primary Care Provider +1- [phone] Encounter Details Date Type Department Care Team (Latest Contact Info) Description 12/10/1998 Outpatient Historical HIS [facility] Willard Gillespie MD [address] [place] [address] Multiple sclerosis (CMS/HCC) (Primary Dx) Social History Tobacco Use Types Packs/Day Years Used Date Smoking Tobacco: Never Assessed Comments Unknown Sex and Gender Information Value Date Recorded Sex Assigned at Not on file Legal Sex Female 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
--- OUTSIDE RECORDS SUMMARY | 2025-02-26 12:06 | XMS_ITS | Clinical Summary ---
[facility] Organization [facility] Address [address] [place] [address] Care Team Providers Care Service Counselor Name Role Phone Chuck Looney MD Primary Care Prov ider Allergies Active Allergy Reactions Criticality Noted Date Comments Codeine Nausea And Vomiting Low 04/20/2013 Sulfa (Sulfonamide Antibiotics) Nausea And Vomiting Low 04/20/2013 Medications cholecalciferol (VITAMIN D-3) 1,000 unit capsule Take 1 capsule (1,000 Units total) by mouth daily Active oxybutynin XL (DITROPAN-XL) 10 mg 24 hr tablet 2 tablets (20 mg total) daily 4 Active onabotulinumtox Aaron (BOTOX INJ)Indications :Muscle Spasm Inject as directed Active multivitamin tabletIndicatio ns:Vitamin Deficiency Prevention Take 1 tablet by mouth Active ocrelizumab (OCREVUS IV) Infuse into a venous catheter Active lisinopriL (PRINIVIL,ZESTR IL) 20 mg tablet Take 1 tablet (20 mg total) by mouth daily 2 Active pravastatin (PRAVACHOL) 20 mg tablet Take 1 tablet (20 mg total) by mouth daily 2 Active Luer Lock Syringe 60 mL syringe FOR USE TO instill 30cc gentamicin/nacl mix into BLADDER AT nightime, allow TO sit overnight catherterize TO REMOVE in THE morning 4 Active sodium chloride 0.9% 0.9 % irrigation mix 12ml of gentamicin in 1000ml of normal SALINE THEN instill 30 mls of solution into BLADDER ONCE daily AT nighttime, allow TO sit overnight catherterize TO REMOVE in THE morning 4 Active polyethylene glycol (MIRALAX) 17 gram/dose bulk powder Take by mouth as needed Active gabapentin (NEURONTIN) 100 mg capsule TAKE 3-4 CAPSULES BY MOUTH TWICE DAILY WITH SUPPER AND AT BEDTIME 720 capsule 1 5 Active tiZANidine (ZANAFLEX) 4 mg tablet TAKE 2 TABLETS BY MOUTH NIGHTLY 180 tablet 3 5 Active venlafaxine XR (EFFEXOR-XR) 150 mg 24 hr capsule Take 1 capsule by mouth once daily 90 capsule 3 5 Active Active Problems Problem Noted Date Diagnosed Date 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 Betaseron: [id number] 2. Methotrexate: 1998 x 6 months 3. Copaxone: x 10 years 4. Gilenya: 1 year 5. Copaxone: [id number] 6. Ocrevus: 01/2018-07/15/2023 Per chart review patient [...] and would look to transfer to a m[facility] at that time. The patient has daughter's who are involved and work to help them. Continue botox treatments for spasticity and bladder symptoms. Encounters Date Type Department Care Team Description 02/06/2025 8:30 AM CDT Infusion [facility] [address] [place] [address] [place] [phone] Multiple sclerosis (HCC) (Primary Dx) 01/23/2025 8:00 AM CDT Infusion [facility] [address] [place] [address] [place] [phone] Multiple sclerosis (HCC) (Primary Dx) 01/18/2025 Orders Only [facility] [address] [place] [address] [place] [address], [place] [phone] Jaiden Hall MD 01/15/2025 Telephone [facility] [address] [place] [phone] Rachell Martinez RN 01/09/2025 Telephone [facility] in Care [address] [place] [address] Suzette Kevin Leyva Re-Start (No Prior Auth Required) 01/08/2025 Orders Only [facility] Care [address], [place] [address] Jaiden Hall MD Multiple sclerosis (HCC) (Primary Dx); High risk medication use 01/04/2025 11:20 AM CDT Lab [facility] [address] [place] [phone] Screening for viral disease; Multiple sclerosis (HCC); Vitamin D deficiency 01/04/2025 10:00 AM CDT Office Visit [facility] in Care [address], [place] [address] Jaiden Hall MD Multiple sclerosis (HCC) [...] on file Legal Sex Female 10:33 AM LUMBER STICKER Gender Identity Female 01/06/2021 9:01 AM CDT Sexual Orientation Straight 01/06/2021 9: 01 AM CDT Obstetrics History Last Filed Vital Signs Vital Sign Reading Time Taken Comments Blood Pressure 113/73 02/06/2025 1:28 PM CDT Pulse 93 02/06/2025 1:28 PM CDT Temperature 36.7 C (98 F) 02/06/2025 1:28 PM CDT Respiratory Rate 18 02/06/2025 1:28 PM CDT Oxygen Saturation 100% 02/06/2025 1:28 PM CDT Inhaled Oxygen Concentration - - Weight [...] (ABNORMAL) Immunoglobulin profile (01/04/2025 11:28 AM CDT) Pathologist [facility] Immunoglobulin G 642(L) 700 - 1,600 mg/dL Immunoglobulin A 314 70 - 400 mg/dL [facility] Immunoglobulin M 64 40 - 230 mg/dL [facility] Blood 01/04/2025 11:2 8 AM CDT 01/04/2025 12:48 PM CDT us Jaiden Hall MD LAB BLOOD ORDERABLES Final Result [facility] [address] [place] [address] * eGFR (01/04/2025 11:28 AM CDT) [facility] eGFR >90 >=60 mL/min/1. 73 m2 [...] of Race in Diagnosing Kidney Disease, JASN 202). The CKD-EPI equation should not be used for patients with unstable renal function and has not been validated in children and those over 70. Current interpretive data was last reviewed 2021. Blood 01/04/2025 11:2 8 AM CDT 01/04/2025 12:48 PM CDT us Jaiden Hall MD LAB BLOOD ORDERABLES Final Result [facility] [address] Department [place] [address] * Differential, auto (01/04/2025 11:28 AM CDT) Neutrophil abs 4.93 1.50 - 6.50 K/cumm Imm gran abs 0.01 0.00 - 0.10 K/cumm [facility] Lymphocyte abs 1.91 0.80 - 3.30 K/cumm [facility] Monocyte abs 0.64 0.20 - 0.80 K/cumm [facility] Eosinophil abs 0.19 0.00 - 0.50 K/cumm [facility] Basophil abs 0.06 0.00 - 0.10 K/cumm [facility] Neutrophil pct 63.6 % [facility] Comment: Interpretive Data Percent cell count reference ranges are not reported, since discordance with absolute values may lead to misinterpretation of CBC data. Current Interpretive Data was last revised on 2017. Imm gran pct 0.1 % [facility] Comment: Interpretive Data Percent cell count reference ranges are not reported, since discordance with absolute values may lead to misinterpretation of CBC data. Current Interpretive Data was last revised on 2017. Lymphocyte pct 24.7 % [facility] Comment: Interpretive Data Percent cell count reference ranges are not reported, since discordance with absolute values may lead to misinterpretation of CBC data. Current Interpretive Data was last revised on 2017. Monocyte pct 8.3 % [facility] Comment: Interpretive Data Percent cell count reference ranges are not reported, since discordance with absolute values may lead to misinterpretation of CBC data. Current Interpretive Data was last revised on 2017. Eosinophil pct 2.5 % [facility] Comment: Interpretive Data Percent cell count reference ranges are not reported, since discordance with absolute values may lead to misinterpretation of CBC data. Current Interpretive Data was last revised on 2017. Basophil pct 0.8 % [facility] Comment: Interpretive Data Percent cell count reference ranges are not reported, since discordance with absolute values may lead to misinterpretation of CBC data. Current Interpretive Data was last revised on 2017. Blood 01/04/2025 11:2 8 AM CDT 01/04/2025 12:48 PM CDT us Jaiden Hall MD LAB BLOOD ORDERABLES Final Result [facility] [address] Department of Laboratories [place], [place] [id number] * Immune competence (01/04/2025 11:28 AM CDT) CD3 pct 79 60 - 88 % Comment:Testing performed by : [facility], [address] [place]., [address] CD3 Absolute 1,369 661 - 1,963 cells/mcL [facility] Comment:Testing performed by : [facility], [address] [place]., [address] CD4 pct 58 31 - 64 % [facility] Comment:Testing performed by : [facility], [address] [facility], [address] CD4 Absolute 988 365 - 1,294 cells/mcL [facility] Comment:Testing performed by : [facility], [address] [facility], [address] CD8 pct 22 12 - 40 % [facility] Comment:Testing performed by : [facility], [address] [facility], [address] CD8 Absolute 367 187 - 781 cells/mcL [facility] Comment:Testing performed by : [facility], [address] [facility], [address] CD19 pct 10 6 - 25 % [facility] Comment:Testing performed by : [facility], [address] [facility], [address] CD19 Absolute 178 86 - 488 cells/mcL [facility] Comment:Testing performed by : [facility], [address] [facility], [address] [id number] pct 11 5 - 25 % [facility] Comment:Testing performed by : [facility], [address] [facility], [address] [id number] Absolute 203 76 - 467 cells/mcL [facility] Comment:Testing performed by : [facility], [address] [facility], [address] CD4/CD8 ratio 2.6 [facility] Comment:Testing performed by : [facility], [address] [facility], [address] Blood 01/04/2025 11:2 8 AM CDT 01/04/2025 5:21 PM CDT us Jaiden Hall MD LAB BLOOD ORDERABLES Final Result [facility] [address] Department [place] [address] * CBC with auto differential (01/04/2025 11:28 AM CDT) [facility] WBC 7.74 3.80 - 9.90 K/cumm Hgb 13.9 11.9 - 15.5 g/dL [facility] Hct 41.8 35.6 - 45.5 % [facility] Plt 305 150 - 400 K/cumm [facility] MPV 9.9 9.1 - 12.3 fL [facility] RBC 4.57 3.90 - 5.20 M/cumm [facility] MCV 91.5 81.3 - 96.4 fL [facility] MCH 30.4 27.1 - 33.3 pg [facility] MCHC 33.3 32.3 - 35.7 g/dL [facility] RDW CV 12.6 11.1 - 14.9 % [facility] RDW SD 41.7 35.7 - 48.1 fL [facility] NRBC abs 0.00 0.00 - 0.01 K/cumm [facility] Blood 01/04/2025 11:2 8 AM CDT 01/04/2025 12:48 PM CDT Jaiden Hall MD LAB BLOOD ORDERABLES Final Result [facility] [address] Department [place] [address] * Hepatitis panel, acute Blood (01/04/2025 11:28 AM CDT) [facility] Hep A IgM Nonreactive Nonreactive Comment: Interpretive Data: If Hep A IgM Ab is reported as Equivocal, a new sample should be drawn in two weeks for testing. Current interpretive data was last revised on 19. Hep B core IgM Nonreactive Nonreactive [facility] Comment: Interpretive Data If HepB Core IgM Ab is reported as Equivocal, a new sample should be drawn in two weeks for testing. Current interpretive data was last revised on 19. Hep C Ab Nonreactive Nonreactive [facility] Comment: Interpretive Data Nonreactive: Antibodies to HCV [...] last revised on 2019. HepBsAg Nonreactive Nonreactive [facility] Blood 01/04/2025 11:2 8 AM CDT 01/04/2025 12:47 PM CDT Jaiden Hall MD LAB MICROBIOLOGY - GE NERAL ORDERABLES Final Result Performing Organization Address [facility] Co de Phone Number [facility] [address] [place] [address] * Hepatitis B core antibody, total Blood (01/04/2025 11:28 AM CDT) Pathologist [facility] Hep B core IgG/IgM Nonreactive Nonreactive Comment:Testing performed by : [facility], [address] [place]., [address] Blood 01/04/2025 11:2 8 AM CDT 01/04/2025 5:20 PM CDT Jaiden Hall MD LAB MICROBIOLOGY - GE NERAL ORDERABLES Final Result Performing Organization Address [facility] Co de Phone Number [facility] [address] [place] [address] * Vitamin D 25 hydroxy (01/04/2025 11:28 AM CDT) Pathologist [facility] Vitamin D 25-OH 56 30 - 80 ng/mL Blood 01/04/2025 11:2 8 AM CDT 01/04/2025 12:48 PM CDT Jaiden Hall MD LAB BLOOD ORDERABLES Final Result Performing Organization Address City/[facility] Co de Phone Number [facility] [address] Department [place] [address] * Varicella Zoster IgG antibody Blood (01/04/2025 11:28 AM CDT) [facility] VZV IgG Reactive Reactive Comment: Reactive: Results suggest response to immunization or prior exposure to the virus. Testing performed by: [facility], [address] [place]., [address] Blood 01/04/2025 11:2 8 AM CDT 01/04/2025 5:20 PM CDT Jaiden Hall MD LAB MICROBIOLOGY - NERAL ORDERABLES Final Result Performing Organization Address [facility]/State/ZIP Co de Phone Number [facility] [address] Department [place] [address] * (ABNORMAL) Comprehensive metabolic panel (01/04/2025 11:28 AM CDT) [facility] Sodium 141 135 - 145 mmol/L Potassium, pl 4.2 3.3 - 4.9 mmol/L [facility] Chloride 102 97 - 110 mmol/L [facility] CO2 26 22 - 32 mmol/L [facility] Anion gap 13 2 - 15 mmol/L [facility] BUN 13 6 - 25 mg/dL [facility] Creatinine 0.44(L) 0.60 - 1.10 mg/dL [facility] Glucose 95 70 - 199 mg/dL [facility] Comment: Interpretive Data Fasting glucose >/= 126 [...] 2022. Calcium 9.6 8.5 - 10.3 mg/dL [facility] Bilirubin, total 0.3 0.1 - 1.2 mg/dL [facility] Protein, pl 7.0 6.5 - 8.5 g/dL [facility] Albumin 4.4 3.5 - 5.0 g/dL [facility] Alk phos 104 40 - 130 Units/L [facility] ALT 29 7 - 45 Units/L [facility] AST 28 10 - 45 Units/L [facility] Blood 01/04/2025 11:2 8 AM CDT 01/04/2025 12:48 PM CDT us Jaiden Hall MD LAB BLOOD ORDERABLES Final Result [facility] [address] [place] [address] from Last 3 Months Insurance MEDICARE [facility] MEDICARE [facility] [employer] MEDICARE [facility] [employer] Care Teams Service Counselor Relationship Specialty Start Date End Date Chuck Looney MD [address] [place] [address] PCP - General 03/11/17
--- OUTSIDE RECORDS SUMMARY | 2025-02-26 12:06 | XMS_ITS | Encounter Summary ---
Author Organization [facility] Address [address] [place] [address] Care Team Providers Care Fitness Supervisor Name Role Phone Chuck Looney MD Primary Care Provider [phone]- [phone] Encounter Details Date Type Department Care Team (Late st Contact Info) Description 08/23/2003 Outpatient Historical Division of Neurology 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
--- OUTSIDE RECORDS SUMMARY | 2025-02-26 12:07 | XMS_ITS | Encounter Summary ---
Author Organization [facility] Address [address] [place] [address] Care Team Providers Care Sawmill Worker Name Role Phone Chuck Looney MD Primary Care Provider [phone]- [phone] Encounter Details Date Type Department Care Team (Late st Contact Info) Description 05/18/2007 Outpatient Historical [facility] MRI DEPT Willard Villegas MD [address] [facility] [address] [place] [address] Multiple Sclerosis (CMS/HCC) (Primary Dx) Social History Tobacco Use Types Packs/Day Years Used Date Smoking Tobacco: Never Assessed Comments Unknown Sex and Gender Information Value Date Recorded Sex Assigned at Not on file Legal Sex Female 2:59 AM IMAGING SERVICES DIRECTOR Gender Identity Not on file Sexual Orientation Not on file documented as of this encounter Plan of Treatment Not on file documented as of this encounter Procedures Procedure Name Priority Date/Time Associated Diagnosis Comments POC CREATININE Routine 05/18/2007 8:10 PM IMAGING SERVICES DIRECTOR documented in this encounter Results * POC CREATININE (05/18/2007 8:10 PM IMAGING SERVICES DIRECTOR) CREATININE POC 0.8 0.6 - 1.3 mg/dL INTERFACE SYSTEM 05/18/2007 8:10 PM IMAGING SERVICES DIRECTOR us Willard Villegas MD POINT OF CARE TESTING Edited INTERFACE SYSTEM Refer to clinic/hospital department documented in this encounter Visit Diagnoses Diagnosis Multiple sclerosis (CMS/HCC)- Primary Multiple sclerosis documented in this encounter Care Teams Sawmill Worker Relationship Specialty Start Date End Date Chuck Looney MD PCP - General 02/25/09 documented as of this encounter
--- OUTSIDE RECORDS SUMMARY | 2025-02-26 12:07 | XMS_ITS | Encounter Summary ---
Author Organization [facility] Address [address] [place] [address] Care Team Providers Care City Carrier Name Role Phone Chuck Looney MD Primary Care Prov ider Encounter Details Date Type Department Care Team (Late st Contact Info) Description 01/15/2025 Telephone [facility] [address], [place] [address] Rachell Martinez, AYLEEN Social History Tobacco Use Types Packs/Day Years Used Date Smoking Tobacco: Never Smokeless Tobacco: Never Alcohol Use Standard Drinks/Week Comments No 0 (1 standard drink = 0.6 oz pur e alcohol) Comments No Sex and Gender Information Value Date Recorded Sex Assigned at Not on file Legal Sex Female 10:33 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
== END 2025-02-26 11:25 | disposition home or self-care (01) ==
PROVIDERS: PCP Family Medicine Adolescent Medicine; Visit Provider Orthopaedic Surgery
DX: S42.214D Unspecified nondisplaced fracture of surgical neck of right humerus, subsequent encounter for fracture with routine healing (principal); X58.XXXD Exposure to other specified factors, subsequent encounter
CPT/HCPCS: 73030